=== PATIENT | male | born 1935 | race Caucasian/White ===

== ENCOUNTER 2017-09-04 14:12 | Inpatient (IN) | payer MEDICARE, OTHER ==
[~2017-09-04] VITALS: Ht 175.3 cm; Wt 86.8 kg
[~2017-09-04 14:12] MED LIST: ALBU2.5V7 NEB; ASPI81TA31 PO; Acetaminophen PO; Blood Sugar Diagnostic VI; CLOP75TA15 PO; DEXT50DI8 IV; HEPA50007 IV; INSU100I19 SQ; INSU100V28 SQ; ISOS60TA4 PO; MENT71OI TOP; Methylprednisolone Sod Succ IV; Metoprolol Tartrate PO; Morphine Sulfate IV; Ondansetron Hcl/Pf IV; PANT40TA2 PO; PIPE3.379 IV; RANO500T3 PO; RXVAN XX; SIMV80TA5 PO; TAMS-3 PO
[2017-09-04] MEDS ORDERED: CEFTRIAXONE 1 G in IV DEXTROSE 5% 50 ML IV ONE (14:15)
[2017-09-04] MEDS ORDERED: IV NORMAL SALINE 1000 ML BAG IV ONE (14:15)
--- NOTE | 2017-09-04 14:15 | NUR ---
At bedside assessing patient, and speaking to pt's daughter who remains at bedside.
[2017-09-04] MEDS ORDERED: VALSARTAN 80 MG TABLET PO (14:25)
[2017-09-04] MEDS ORDERED: IRON1TAB PO (14:28)
[2017-09-04] MEDS ORDERED: GABA-534 PO (14:28)
[2017-09-04] MEDS ORDERED: GLIM4TAB3 PO (14:28)
[2017-09-04] MEDS ORDERED: LINA1TAB7 PO (14:28)
[2017-09-04] MEDS ORDERED: VERA240T97 PO (14:28)
[2017-09-04] MEDS ORDERED: CARV25TA2 PO (14:28)
[2017-09-04] MEDS ORDERED: ACETAMINOPHEN 650 MG/20.3 ML LIQUID UDC PO ONE (14:30)
[2017-09-04] MEDS ORDERED: OSELTAMIVIR PHOSPHATE 75 MG CAPSULE PO ONE (14:30)
[2017-09-04 14:40] LABS: ABG BASE EXCESS -1.8 mmol/L; ABG PCO2 33.7 mmHg (35.0-45.0); ABG PH 7.432 (7.350-7.450); ABG PO2 74.8 mmHg (75.0-100.0); ABG SITE RIGHT BRACHIAL; ABG TOTAL HEMOGLOBIN 10.5 G/dL (13.5-18.0); COHb 1.3 % (0.5-1.5); MetHb 0.2 % (0.0-1.5); VENT MODE Nasal Cannula
[2017-09-04] MEDS ORDERED: ACETAMINOPHEN 325 MG TABLET ONE (14:46)
[2017-09-04 14:47] LABS: BASOPHILS % (AUTO) 0.2 % (0.0-2.0); EOSINOPHILS % (AUTO) 0.2 % (0.0-7.0); HEMATOCRIT 33.8 % (36.7-47.1); LYMPHOCYTES # (AUTO) 0.5 K/uL (20.0-40.0); LYMPHOCYTES % (AUTO) 9.1 % (20.5-51.5); MEAN CORPUSCULAR HEMOGLOBIN 29.5 uug (23.8-33.4); MEAN CORPUSCULAR HGB CONC 33 g/dL (32.5-36.3); MEAN CORPUSCULAR VOLUME 90.5 fL (73.0-96.2); MONOCYTES # (AUTO) 0.5 K/uL (2.0-10.0); MONOCYTES % (AUTO) 7.9 % (0.0-11.0); NEUTROPHILS % (AUTO) 82.6 % (38.5-71.5); PLATELET COUNT (AUTO) 122 K/uL (152-348); RED BLOOD CELL COUNT(AUTO) 3.73 MIL/uL (4.06-5.63)
[2017-09-04] MEDS ORDERED: CEFTRIAXONE 1 G VIAL ONE (14:47)
[2017-09-04] MEDS ORDERED: OSELTAMIVIR PHOSPHATE 75 MG CAPSULE ONE (14:47)
[2017-09-04 14:55] LABS: *BILIRUBIN,URIN NEGATIVE (NEGATIVE); *BLOOD, URINE 2+ (NEGATIVE); *CLARITY,URINE CLEAR (CLEAR); *COLOR,URINE YELLOW (YELLOW); *KETONES,URINE NEGATIVE (NEGATIVE); *PROTEIN,URINE 1+ (NEGATIVE); *UROBILINOGEN,URINE 0.2 E.U./dl (NORMAL); LEUKOCYTE ESTERASE ,URINE NEGATIVE (NEGATIVE); NITRITE, URINE NEGATIVE (NEGATIVE); PH,URINE 6.5 (5.0-8.0)
--- NOTE | 2017-09-04 14:57 | NUR ---
HR of 112, RR of 28, sbp 212/98, 96% room air.
[2017-09-04 14:59] LABS: UGLUCOSE 2+ (NEGATIVE)
[2017-09-04 15:01] LABS: CARBON DIOXIDE 24 mmol/L (21-32); CHLORIDE 99 mmol/L (98-107); CREATININE 1.6 mg/dL (0.6-1.3); POTASSIUM 4.2 mmol/L (3.5-5.1); UREA NITROGEN, BLOOD 24 mg/dL (7-18)
[2017-09-04 15:03] LABS: GLUCOSE 441 mg/dL (74-106)
[2017-09-04 15:13] LABS: ALANINE AMINOTRANSFERASE 23 U/L (16-63); ALKALINE PHOSPHATASE 69 U/L (50-136); ASPARTATE AMINOTRANSFERASE 16 U/L (15-37); BILIRUBIN,DIRECT 0.1 mg/dL (0.0-0.2); BILIRUBIN,TOTAL 0.6 mg/dL (0.2-1.0); TOTAL PROTEIN, SERUM 7.5 g/dL (6.4-8.2)
[2017-09-04 15:29] LABS: BACTERIA,URINE NONE SEEN /HPF (NONE SEEN); SQUAMOUS EPITHELIAL CELL,UR NONE SEEN /HPF (NONE SEEN); WBC,URINE 0-3 /HPF (0-3)
--- NOTE | 2017-09-04 16:15 | NUR ---
SBP 180/83, RA Influeza swabb sent as order. Patient left unit via gurney AAOX3. sbp as noted. daughter at bedside.
[2017-09-04] MEDS ORDERED: SILD20TA2 PO (16:52)
[2017-09-04 16:56] VITALS: BP 187/82
[2017-09-04] MEDS ORDERED: hydrALAZINE HCL 20 MG/1 ML VIAL IV ONE (17:30)
--- NOTE | 2017-09-04 18:00 | NUR ---
Pt admitted to [facility]. Tele SNR @ 90's. Given Hydralazine as ordered per Reema CARTAGENA b/p rechecked still @ SBP of 180's. O2 sat 97% on 2 liters. Noted Bruising on right butt cheek - Daughter stated that pt fell at home- ordered x ray of pelvis. Right elbow abrasion noted -keep skin dry and intact. Pt slovak speaking but very ALERT andr ORiented x 3 . Noted Wheezing on left lower lobe - instructed pt not to drink too much water- pt agreeable with plan. Awaiting for medications to be reconciled. Will continue to monitor patient. Instructed pt on how to use call light. Bed Alarm on. Fall precaution implemented. Call light is within reach.
[2017-09-04 19:03] VITALS: BP 187/87
--- NOTE | 2017-09-04 19:15 | NUR ---
Pt is awake on bed. family member on bed side. IV site intact and patent. Pt is on nasal cannula 2l. call light within reach. bed alarm on. safety and comfort provided.will continue to monitor.
--- NOTE | 2017-09-04 20:30 | NUR ---
PATIENT BP 187/86, C/O BACK,ABDOMINAL PAIN,SARAH LOPEZ CHERYL APPLIED MATHEMATICIAN, WAS NOTIFIED, ORDER RECEIVED.
[2017-09-04] MEDS ORDERED: ONDANSETRON 4 MG/2 ML VIAL IV PRN (20:45)
[2017-09-04] MEDS ORDERED: HYDROCODONE/APAP 5-325MG TABLET PO PRN (20:45)
[2017-09-04] MEDS ORDERED: ZOLPIDEM 5 MG TABLET PO PRN (20:45)
[2017-09-04] MEDS ORDERED: DEXTROSE 50% 50 ML DISP.SYRIN IV PRN (20:45)
[2017-09-04] MEDS ORDERED: MAGNESIUM HYDROXIDE 30 ML LIQUID UDC PO PRN (20:45)
[2017-09-04] MEDS ORDERED: ACETAMINOPHEN 325 MG TABLET PO PRN (20:45)
[2017-09-04] MEDS ORDERED: MORPHINE SULFATE 2 MG/1 ML DISP.SYRIN IV PRN (20:45)
[2017-09-04] MEDS ORDERED: LEVOFLOXACIN 750MG/D5W 750 MG in PREMIXED 1 EACH IV SCH (20:45)
[2017-09-04] MEDS ORDERED: AMLODIPINE 5 MG TABLET ONE (21:14)
[2017-09-04] MEDS: AMLODIPINE 5 MG TABLET PO SCH (21:22)
[2017-09-04] MEDS: BLOOD SUGAR DIAGNOSTIC 1 EACH STRIP VI SCH (21:26)
[2017-09-04] MEDS: INSULIN REGULAR, HUMAN 300 UNITS/3 ML VIAL SQ PRN (21:28)
--- NOTE | 2017-09-04 22:00 | NUR ---
PATIENT C/O NOT FEELING GOOD,BP 224/119,ST WITH BBB,RATE 104 BPM,TROPONIN 0.850.CHARLY PARDO. RADIO DISPATCHER WAS NOTIFIED,ORDERS RECEIVED TRANSFER TO CCU BED 5, FOR HIGHER LEVEL OF CARE.REPORT GIVEN TO SHAY Stark
[2017-09-04] MEDS ORDERED: NICARDIPINE IN NS 20 MG/200 ML PIGGYBACK IV ONE (22:30)
[2017-09-04] MEDS ORDERED: METOPROLOL TARTRATE 5 MG/5 ML VIAL IVP PRN (22:30)
[2017-09-04] MEDS ORDERED: HEPARIN/D5W DRIP 500 ML IV PRN (22:30)
[2017-09-04] MEDS ORDERED: NICARDIPINE IN DEXTROSE,ISO-OS 200 ML IV ONE (23:00)
[2017-09-04 23:15] VITALS: BP 206/110
[2017-09-04 23:30] VITALS: BP 201/102
[2017-09-04] MEDS ORDERED: LEVOFLOXACIN 750MG/D5W 150 ML IV ONE (23:41)
[2017-09-04] MEDS ORDERED: METOCLOPRAMIDE HCL 10 MG/2 ML VIAL ONE ×2 (23:42→23:43)
[2017-09-04] MEDS ORDERED: NICARDIPINE IN NS 200 ML IV ONE (23:44)
[2017-09-04 23:45] VITALS: BP 194/100
--- NOTE | 2017-09-04 23:45 | NUR ---
PATIENT TRANSFERRED TO CCU: WITH ELEVATED TROPONIN, SBP 206, ORDERED CARDENE & HEPARIN. STARTED CARDENE AT 5 MG / HR.
--- NOTE | 2017-09-04 23:59 | NUR ---
INCREASED CARDENE TITRATION 2.5 MG Q5MIN, TO MAXIMUM DOSE 15 MG / HR (150 ML / HR). NOT SHOWING ON IV SPREADSHEET.
[2017-09-05] VITALS (69 sets, daily range): BP systolic 104–180; BP diastolic 42–130
[2017-09-05] MEDS ORDERED: IV NORMAL SALINE 250 ML IV ONE (00:37)
[2017-09-05] MEDS ORDERED: IOHEXOL 350 100 ML INFUS..BTL ONE (00:37)
[2017-09-05] MEDS: ACETYLCYSTEINE 20% 800 MG/4 ML VIAL PO SCH ×3 (00:40→20:42)
[2017-09-05] MEDS ORDERED: IV NORMAL SALINE 500 ML IV ONE ×2 (01:00→10:25)
[2017-09-05] MEDS: IV NS 1000 ML 1,000 ML IV PRN ×2 (01:00→15:21)
--- NOTE | 2017-09-05 01:00 | NUR ---
CARDENE TITRATION @ 2.5 MG / HR (12.5 ML / HR).
[2017-09-05] MEDS ORDERED: NICARDIPINE IN NS 200 ML IV ONE (01:03)
--- NOTE | 2017-09-05 01:30 | NUR ---
REPORTED CT SCAN RESULTS TO DR STARK. MADE AWARE HEPARIN WAS D/C'D. MADE AWARE CARDENE TITRATION INFUSING.
[2017-09-05] MEDS ORDERED: ACETYLCYSTEINE 20% 800 MG/4 ML VIAL ONE (01:47)
--- NOTE | 2017-09-05 02:00 | NUR ---
CARDENE TITRATION @ 2.5 MG / HR (12.5 ML / HR).
--- NOTE | 2017-09-05 03:00 | NUR ---
CARDENE TITRATION @ 2.5 MG / HR (12.5 ML / HR).
--- NOTE | 2017-09-05 04:00 | NUR ---
CARDENE TITRATION @ 2.5 MG / HR (12.5 ML / HR).
--- NOTE | 2017-09-05 05:00 | NUR ---
CARDENE TITRATION @ 2.5 MG / HR (12.5 ML / HR).
[2017-09-05 05:28] LABS: CARBON DIOXIDE 27 mmol/L (21-32); CHLORIDE 103 mmol/L (98-107); CREATININE 1.1 mg/dL (0.6-1.3); GLUCOSE 253 mg/dL (74-106); MAGNESIUM 1.3 mg/dL (1.8-2.4); PHOSPHOROUS 3.2 mg/dL (2.5-4.9); POTASSIUM 3.8 mmol/L (3.5-5.1); UREA NITROGEN, BLOOD 18 mg/dL (7-18)
[2017-09-05 05:34] LABS: BASOPHILS % (AUTO) 0.2 % (0.0-2.0); EOSINOPHILS % (AUTO) 0.4 % (0.0-7.0); HEMATOCRIT 29.9 % (36.7-47.1); HEMOGLOBIN 10.1 g/dL (12.5-16.3); LYMPHOCYTES # (AUTO) 0.6 K/uL (20.0-40.0); LYMPHOCYTES % (AUTO) 10.9 % (20.5-51.5); MEAN CORPUSCULAR HEMOGLOBIN 30.3 uug (23.8-33.4); MEAN CORPUSCULAR HGB CONC 34 g/dL (32.5-36.3); MEAN CORPUSCULAR VOLUME 89.7 fL (73.0-96.2); MONOCYTES # (AUTO) 0.5 K/uL (2.0-10.0); MONOCYTES % (AUTO) 8.2 % (0.0-11.0); NEUTROPHILS # (AUTO) 4.7 K/uL (1.8-8.9); NEUTROPHILS % (AUTO) 80.3 % (38.5-71.5); PLATELET COUNT (AUTO) 110 K/uL (152-348); RED BLOOD CELL COUNT(AUTO) 3.33 MIL/uL (4.06-5.63); WHITE BLOOD COUNT (AUTO) 5.8 K/uL (3.6-10.2)
--- NOTE | 2017-09-05 06:00 | NUR ---
CARDENE TITRATION @ 2.5 MG / HR (12.5 ML / HR).
[2017-09-05] MEDS ORDERED: NICARDIPINE IN NS 20 MG/200 ML PIGGYBACK IV PRN (07:30)
[2017-09-05] MEDS ORDERED: MORPHINE SULFATE 4 MG/1 ML DISP.SYRIN IV PRN ×2 (07:45→10:45)
[2017-09-05] MEDS: INSULIN REGULAR, HUMAN 300 UNIT/3 ML VIAL SQ PRN ×3 (07:59→20:57)
[2017-09-05] MEDS: BLOOD SUGAR DIAGNOSTIC 1 EACH STRIP VI SCH ×4 (08:17→20:54)
[2017-09-05] MEDS: HEPARIN/D5W DRIP 500 ML IV PRN (08:20)
--- NOTE | 2017-09-05 08:20 | NUR ---
heparin drip started at 1000units per hr post bolus of 5400 units IVp Addendum: 09/05/17 at 1944 by LIT FLYNN RN Amended: Links added. Addendum: 09/05/17 at 1945 by LIT FLYNN RN Amended: Links added.
[2017-09-05] MEDS: HEPARIN SODIUM,PORCINE 5,000 UNITS/ML VIAL IV ONE ×2 (08:24→08:28)
[2017-09-05] MEDS ORDERED: CLOPIDOGREL 75 MG TABLET PO SCH (09:00)
[2017-09-05] MEDS: AMLODIPINE 5 MG TABLET PO SCH ×2 (09:22→20:58)
[2017-09-05] MEDS ORDERED: NICARDIPINE IN NS 20 MG/200 ML PIGGYBACK IV ONE (10:30)
[2017-09-05] MEDS ORDERED: MORPHINE SULFATE 2 MG/1 ML DISP.SYRIN IV PRN (10:30)
[2017-09-05] MEDS ORDERED: LEVOFLOXACIN 750MG/D5W 750 MG in PREMIXED 1 EACH IV SCH (10:30)
[2017-09-05] MEDS ORDERED: HEPARIN SODIUM,PORCINE 5,000 UNITS/ML VIAL IV PRN (11:45)
[2017-09-05] MEDS ORDERED: FUROSEMIDE 40 MG/4 ML VIAL IV ONE (12:00)
[2017-09-05] MEDS ORDERED: NICARDIPINE IN NS 200 ML IV PRN (13:00)
--- NOTE | 2017-09-05 13:40 | NUR ---
isaiah gibbs started at 5mg/hr via right forearm #20 Addendum: 09/05/17 at 1940 by LIT FLYNN RN Amended: Young added. Addendum: 09/05/17 at 1943 by LIT FLYNN RN Amended: Links added. Addendum: 09/05/17 at 1945 by LIT FLYNN RN Amended: Links added.
[2017-09-05] MEDS: NICARDIPINE IN NS 200 ML IV PRN ×2 (13:48→18:22)
[2017-09-05] MEDS: ALBUTEROL SULFATE 2.5 MG/ 0.5 ML NEBU NEB PRN (14:04)
[2017-09-05] MEDS: MAGNESIUM SULFATE/D5W 100 ML IV SCH ×4 (14:16→17:13)
--- NOTE | 2017-09-05 15:25 | NUR ---
1400 ptt was 65 sec. no drip rate change. next ptt draw in am Addendum: 09/05/17 at 1945 by LIT FLYNN RN Amended: Links added.
[2017-09-05 15:47] LABS: CHOLESTEROL 80 mg/dL (<200); TRIGLYCERIDES 98 MG/DL (30-150)
[2017-09-05 15:48] LABS: HDL CHOLESTEROL 22 mg/dL (40-60)
--- NOTE | 2017-09-05 17:15 | NUR ---
report received from Sher, patient 70 yr old male was admitted on 09/04/16 for sepsis, acs and sob. patient is awake alert and oriented, welsh speaking only. ekg is sinus bp is high, is diabetic. iv fluid NS 75ml/hr. IV site #20 intact via right forearm Addendum: 09/05/17 at 1928 by LIT FLYNN RN Amended: Links added.
--- NOTE | 2017-09-05 19:15 | NUR ---
report given to Sunil Addendum: 09/05/17 at 1948 by LIT FLYNN RN Amended: Links added.
--- NOTE | 2017-09-05 19:48 | NUR ---
report given to Sunil
--- NOTE | 2017-09-05 20:00 | NUR ---
Alert, oriented. Just seen by Dr. Greenfield. Cardene drip infusing well for BP management. Will start PO antihypertensives and wean off drip. Also on Heparin drip for ACS/Elevated troponins. No evidence of bleeding. Pt made aware of care plans. Denies pain/discomfort. Instructed to report all pain/discomfort episodes to RN. Nursing comfort measures observed. On droplet precautions. Occasional bouts of productive cough. Please see CCU flowsheet for full assessment and clinical data.
[2017-09-05] MEDS: CARVEDILOL 25 MG TABLET PO SCH (20:41)
[2017-09-05] MEDS: ATORVASTATIN 40 MG TABLET PO SCH (20:42)
[2017-09-05] MEDS: Z GUARD REMEDY PASTE 57 GM TUBE TOP PRN (20:45)
[2017-09-05] MEDS ORDERED: OSELTAMIVIR PHOSPHATE 75 MG CAPSULE PO SCH (21:00)
[2017-09-05] MEDS: OSELTAMIVIR PHOSPHATE 75 MG CAPSULE PO SCH (21:13)
[2017-09-05] MEDS: SILDENAFIL 20 MG TABLET PO SCH (21:14)
[2017-09-05] MEDS: LEVOFLOXACIN 750MG/D5W 750 MG in PREMIXED 1 EACH IV SCH (22:26)
--- NOTE | 2017-09-05 23:00 | NUR ---
Cardene drip weaned off. SBP maintaining below 160. Pt monitored closely.
[2017-09-06] VITALS (29 sets, daily range): BP systolic 112–173; BP diastolic 56–92
[2017-09-06] MEDS: IV NS 1000 ML 1,000 ML IV PRN ×2 (04:51→19:00)
[2017-09-06 05:19] LABS: CARBON DIOXIDE 26 mmol/L (21-32); CHLORIDE 104 mmol/L (98-107); CREATININE 1.1 mg/dL (0.6-1.3); GLUCOSE 189 mg/dL (74-106); MAGNESIUM 1.9 mg/dL (1.8-2.4); POTASSIUM 3.2 mmol/L (3.5-5.1); UREA NITROGEN, BLOOD 16 mg/dL (7-18)
[2017-09-06] MEDS: SILDENAFIL 20 MG TABLET PO SCH ×3 (05:25→21:34)
--- NOTE | 2017-09-06 06:00 | NUR ---
Stable VS even with Cardene off. Barely slept tonight, refused any medication. Denies pain/discomfort. Bouts of productive cough. No untoward effects from Heparin drip. Please see CCU flowsheet for trends and clinical data.
--- NOTE | 2017-09-06 06:20 | NUR ---
Assisted to bedside commode for bowel elimination needs. Appears strong, steady on feet. Continent of soft BM, kept clean and dry. AM care rendered. Pt appreciative of care.
--- NOTE | 2017-09-06 06:45 | NUR ---
Noted urine starting to look with cranberry color, no clots noted. Will observe closely. Stable PTT, no change in dose.
[2017-09-06] MEDS: ALBUTEROL SULFATE 2.5 MG/ 0.5 ML NEBU NEB PRN ×2 (07:58→17:29)
[2017-09-06] MEDS: IPRATROPIUM BROMIDE 0.5 MG/2.5 ML NEBU NEB PRN ×2 (07:58→17:29)
[2017-09-06] MEDS: BLOOD SUGAR DIAGNOSTIC 1 EACH STRIP VI SCH ×4 (08:26→21:00)
[2017-09-06] MEDS: CARVEDILOL 25 MG TABLET PO SCH ×2 (08:28→17:53)
[2017-09-06] MEDS: ACETYLCYSTEINE 20% 800 MG/4 ML VIAL PO SCH (09:02)
[2017-09-06] MEDS: OSELTAMIVIR PHOSPHATE 75 MG CAPSULE PO SCH ×2 (09:02→22:01)
[2017-09-06] MEDS: CLOPIDOGREL 75 MG TABLET PO SCH (09:03)
[2017-09-06] MEDS: AMLODIPINE 5 MG TABLET PO SCH ×2 (09:03→21:35)
[2017-09-06] MEDS: FUROSEMIDE 40 MG/4 ML VIAL IV SCH (09:03)
[2017-09-06] MEDS: ASPIRIN EC 81 MG TABLET.DR PO SCH (09:03)
[2017-09-06] MEDS: INSULIN REGULAR, HUMAN 300 UNIT/3 ML VIAL SQ PRN ×2 (09:06→12:00)
[2017-09-06] MEDS: HEPARIN/D5W DRIP 500 ML IV PRN (09:55)
[2017-09-06] MEDS ORDERED: POTASSIUM CHLORIDE 20 MEQ TAB.PRT.SR PO ONE (11:30)
--- NOTE | 2017-09-06 19:42 | NUR ---
Pt is laying in bed comfortably. No s/s of respiratory distress noted. Pt is on 3l NC. No pain noted. Pt is draining pink tinged urine, dr Candelaria is aware. IV intact/patent. No bleeding noted. All safety needs are met.
[2017-09-06 21:00] LABS: IRON, SERUM 27 ug/dL (50-175)
[2017-09-06] MEDS: ATORVASTATIN 40 MG TABLET PO SCH (21:34)
[2017-09-06 21:35] LABS: *BILIRUBIN,URIN NEGATIVE (NEGATIVE); *BLOOD, URINE 3+ (NEGATIVE); *CLARITY,URINE CLEAR (CLEAR); *COLOR,URINE YELLOW (YELLOW); *KETONES,URINE NEGATIVE (NEGATIVE); *PROTEIN,URINE 2+ (NEGATIVE); *UROBILINOGEN,URINE 0.2 E.U./dl (NORMAL); LEUKOCYTE ESTERASE ,URINE NEGATIVE (NEGATIVE); NITRITE, URINE NEGATIVE (NEGATIVE)
[2017-09-06 21:42] LABS: UGLUCOSE 1+ (NEGATIVE)
[2017-09-06 21:51] LABS: BACTERIA,URINE FEW /HPF (NONE SEEN); RBC,URINE 80-100 /HPF (0-3); SQUAMOUS EPITHELIAL CELL,UR FEW /HPF (NONE SEEN)
[2017-09-06] MEDS: INSULIN REGULAR, HUMAN 300 UNITS/3 ML VIAL SQ PRN (22:23)
[2017-09-06] MEDS: LEVOFLOXACIN 750MG/D5W 750 MG in PREMIXED 1 EACH IV SCH (22:38)
[2017-09-06] MEDS: hydrALAZINE HCL 20 MG/1 ML VIAL IV PRN (22:48)
[2017-09-07] VITALS (26 sets, daily range): BP systolic 126–177; BP diastolic 45–81
--- NOTE | 2017-09-07 01:14 | NUR ---
shift note: PT AAO X 4, FOX, STRONG ON HIS FEET. NEEDS HELP WITH GETTING TO BSC. MONITOR SHOWS NSR WITH SOME JUNCTIONAL BEATS AND V-PACED RHYTHM PACED ABOUT 40% WITH 90% CAPTURE. VSS, AFEBRILE. HYDRALAZINE MG IVP GIVEN FOR SBP OF 173, SEE eMAR. EFFECTIVE POST MEDICATION BP 153/82. PT GETS SOB WHEN GETTING OOB/BSC. O2 INCREASED TO 5L DURING ACTIVITY. PT IS ANXIOUS. DENIES ANY PAIN. AMBIEN 5 MG PO GIVEN FOR SLEEP. NOT IN ANY RESPIRATORY DISTRESS. HAD TWO VERY SOFT UNFORMED STOOLS SINCE 1899. DELGADO IS DRAINING PINK TINGED URINE. PER DAY SHIFT FR. TERESA IS AWARE OF HEMATURIA. PT WAS ON HEPARIN DRIP WHICH IS NOW DC'D. CONTINUE TO MONITOR HEMATURIA AND OTHER S/S OF ANY DISTRESS.
--- NOTE | 2017-09-07 05:09 | NUR ---
PT SLEPT WELL AFTER AMBIEN 5 MG PO, BUT WOKE UP CONFUSED. PULLED OFF HIS LEADS BP CUFF PULSE OX. PT WAS EASILY ORIENTED TO PPT. HE IS COOPERATIVE. HE REFUSED BED BATH AND AT NIGHT SCDs. HE REFUSED SCDs AGAIN. PT TEACHING DONE AGAIN ABOUT SCDs. HAVING UNEVENTFUL NIGHT. NO ACUTE DISTRESS. CONTINUE TO MONITOR.
[2017-09-07 05:34] LABS: BASOPHILS % (AUTO) 0.3 % (0.0-2.0); EOSINOPHILS # (AUTO) 0.1 K/uL (0.0-0.7); EOSINOPHILS % (AUTO) 2.6 % (0.0-7.0); HEMATOCRIT 29.8 % (36.7-47.1); LYMPHOCYTES # (AUTO) 0.7 K/uL (20.0-40.0); LYMPHOCYTES % (AUTO) 16.4 % (20.5-51.5); MEAN CORPUSCULAR HEMOGLOBIN 30.2 uug (23.8-33.4); MEAN CORPUSCULAR HGB CONC 34 g/dL (32.5-36.3); MEAN CORPUSCULAR VOLUME 90.1 fL (73.0-96.2); MONOCYTES # (AUTO) 0.4 K/uL (2.0-10.0); MONOCYTES % (AUTO) 9.6 % (0.0-11.0); NEUTROPHILS # (AUTO) 3.1 K/uL (1.8-8.9); NEUTROPHILS % (AUTO) 71.1 % (38.5-71.5); PLATELET COUNT (AUTO) 117 K/uL (152-348); RED BLOOD CELL COUNT(AUTO) 3.31 MIL/uL (4.06-5.63); WHITE BLOOD COUNT (AUTO) 4.4 K/uL (3.6-10.2)
[2017-09-07] MEDS: SILDENAFIL 20 MG TABLET PO SCH ×3 (05:40→21:08)
[2017-09-07 05:55] LABS: ALANINE AMINOTRANSFERASE 25 U/L (16-63); ALKALINE PHOSPHATASE 52 U/L (50-136); ASPARTATE AMINOTRANSFERASE 27 U/L (15-37); BILIRUBIN,TOTAL 0.7 mg/dL (0.2-1.0); CARBON DIOXIDE 24 mmol/L (21-32); CHLORIDE 105 mmol/L (98-107); CREATININE 0.9 mg/dL (0.6-1.3); GLUCOSE 166 mg/dL (74-106); PHOSPHOROUS 3.1 mg/dL (2.5-4.9); UREA NITROGEN, BLOOD 14 mg/dL (7-18)
[2017-09-07 06:00] LABS: THYROID STIMULATING HORMONE 0.269 mIU/mL (0.358-3.740)
[2017-09-07] MEDS: hydrALAZINE HCL 20 MG/1 ML VIAL IV PRN ×2 (06:22→23:22)
[2017-09-07 06:38] LABS: MAGNESIUM 1.1 mg/dL (1.8-2.4)
--- NOTE | 2017-09-07 07:20 | NUR ---
NOTIFIED DR MOORE REGARDING ABNORMAL MAG AND POTASSIUM. ORDERED COVERAGE OF 3GMS MAGNESIUM AND KDUR.
--- NOTE | 2017-09-07 07:30 | NUR ---
RECIEVED LYING IN BED. AWKE, ALERT AND ORIENTEDX3. MOVES ALL EXTREMETIES BUT GENERALLY WEAK AT THIS TIME. AFEBRILE. NO C/O CHEST PAIN. IVF INFUSING WELL ON THE RIGHT FA.
[2017-09-07] MEDS ORDERED: MAGNESIUM SULFATE 3 GM in IV DEXTROSE 5% 50 ML IV ONE (07:45)
--- NOTE | 2017-09-07 08:00 | NUR ---
FOLEYCATHETER IS DRAINING PINKISH RED URINE OUTPUT LARGE AMOUNT. PT ATE GOOD BREAKFAST.
[2017-09-07] MEDS: ASPIRIN EC 81 MG TABLET.DR PO SCH (08:58)
[2017-09-07] MEDS: CARVEDILOL 25 MG TABLET PO SCH ×2 (08:59→17:25)
[2017-09-07] MEDS ORDERED: ENOXAPARIN SODIUM 30 MG/0.3 ML DISP.SYRIN SUBCUT SCH (09:00)
[2017-09-07] MEDS ORDERED: POTASSIUM CHLORIDE 20 MEQ TAB.PRT.SR PO ONE ×2 (09:00→12:00)
[2017-09-07] MEDS: AMLODIPINE 5 MG TABLET PO SCH ×2 (09:00→20:59)
[2017-09-07] MEDS: OSELTAMIVIR PHOSPHATE 75 MG CAPSULE PO SCH ×2 (09:00→20:59)
[2017-09-07] MEDS: FUROSEMIDE 40 MG/4 ML VIAL IV SCH (09:01)
[2017-09-07] MEDS: MAGNESIUM SULFATE/D5W 100 ML IV SCH ×3 (09:10→12:10)
[2017-09-07] MEDS: CLOPIDOGREL 75 MG TABLET PO SCH (09:11)
[2017-09-07] MEDS: ENOXAPARIN SODIUM 40 MG/0.4 ML DISP.SYRIN SQ SCH (09:14)
[2017-09-07] MEDS: INSULIN REGULAR, HUMAN 300 UNIT/3 ML VIAL SQ PRN ×3 (09:16→17:27)
[2017-09-07] MEDS: BLOOD SUGAR DIAGNOSTIC 1 EACH STRIP VI SCH ×4 (09:18→21:06)
[2017-09-07] MEDS ORDERED: PANTOPRAZOLE SODIUM 40 MG TABLET.DR PO ONE (10:18)
[2017-09-07] MEDS: IV NS 1000 ML 1,000 ML IV PRN (11:10)
--- NOTE | 2017-09-07 14:00 | NUR ---
SLEPPING ON AND OFF. SBP IS MAINTAINED IN THE 150 SYSTOLIC.
--- NOTE | 2017-09-07 18:30 | NUR ---
PM CARE RENDERED. IVF DISCONTINUED ORDERED.
--- NOTE | 2017-09-07 19:20 | NUR ---
Seen and evaluated by Dr. Flores. Made aware about presence of hematuria. Pt for closer observation. Dozing at intervals. Appears tired but states had a good day. Resp.easy and regular on O2 nasal cannula. Still with bouts of cough, productive at times.
[2017-09-07] MEDS: LOSARTAN POTASSIUM 25 MG TABLET PO SCH (20:58)
[2017-09-07] MEDS: ATORVASTATIN 40 MG TABLET PO SCH (20:58)
[2017-09-07] MEDS: INSULIN REGULAR, HUMAN 300 UNITS/3 ML VIAL SQ PRN (21:08)
[2017-09-07] MEDS: LEVOFLOXACIN 750MG/D5W 750 MG in PREMIXED 1 EACH IV SCH (23:12)
--- NOTE | 2017-09-07 23:30 | NUR ---
IV Apresoline given for SBP above 160. Denies pain/discomfort. Nursing comfort measures observed at all times. Droplet isolation maintained. Encouraged to rest/sleep.
[2017-09-08] VITALS (16 sets, daily range): BP systolic 121–161; BP diastolic 47–75
[2017-09-08] MEDS ORDERED: NORMAL SALINE FLUSH 10 ML DISP.SYRIN IV PRN (01:00)
--- NOTE | 2017-09-08 04:00 | NUR ---
Sleeping on and off. Has coughing bouts but refusing breathing Tx. Also refusing AM care. Prefers to sleep.
[2017-09-08 05:12] LABS: BASOPHILS % (AUTO) 0.3 % (0.0-2.0); EOSINOPHILS # (AUTO) 0.1 K/uL (0.0-0.7); EOSINOPHILS % (AUTO) 1.7 % (0.0-7.0); HEMATOCRIT 28.6 % (36.7-47.1); HEMOGLOBIN 9.8 g/dL (12.5-16.3); LYMPHOCYTES # (AUTO) 0.9 K/uL (20.0-40.0); LYMPHOCYTES % (AUTO) 19.8 % (20.5-51.5); MEAN CORPUSCULAR HEMOGLOBIN 30.4 uug (23.8-33.4); MEAN CORPUSCULAR HGB CONC 34 g/dL (32.5-36.3); MONOCYTES # (AUTO) 0.4 K/uL (2.0-10.0); MONOCYTES % (AUTO) 8.8 % (0.0-11.0); NEUTROPHILS # (AUTO) 3.1 K/uL (1.8-8.9); NEUTROPHILS % (AUTO) 69.4 % (38.5-71.5); PLATELET COUNT (AUTO) 117 K/uL (152-348); RED BLOOD CELL COUNT(AUTO) 3.21 MIL/uL (4.06-5.63); WHITE BLOOD COUNT (AUTO) 4.4 K/uL (3.6-10.2)
[2017-09-08 05:16] LABS: CARBON DIOXIDE 26 mmol/L (21-32); CHLORIDE 104 mmol/L (98-107); GLUCOSE 166 mg/dL (74-106); MAGNESIUM 1.6 mg/dL (1.8-2.4); POTASSIUM 3.3 mmol/L (3.5-5.1); UREA NITROGEN, BLOOD 12 mg/dL (7-18)
[2017-09-08] MEDS: SILDENAFIL 20 MG TABLET PO SCH ×3 (05:35→21:27)
[2017-09-08] MEDS: PANTOPRAZOLE SODIUM 40 MG TABLET.DR PO SCH (06:09)
--- NOTE | 2017-09-08 07:30 | NUR ---
RECIEVED PT LYING IN BED SOUND ASLEEP. DENIEAS ANY DISCOMFORTS. NO C/O CHEST PAINS..O2NC AT 3L. PTCOUGHING ON AND OFF BUT NOT MUCH OF PHLEGM PROODUCTION.
[2017-09-08] MEDS: BLOOD SUGAR DIAGNOSTIC 1 EACH STRIP VI SCH ×4 (08:04→20:42)
[2017-09-08] MEDS: INSULIN REGULAR, HUMAN 300 UNIT/3 ML VIAL SQ PRN ×3 (08:06→17:23)
--- NOTE | 2017-09-08 08:30 | NUR ---
ATE SUFFICIENT AMOUNT FOR BREAKFAST. ASSISTED PT UP ON THE COMMODE AND HAS A HUGE SOFT BROWN STOOL. PT FEELS RELIEVED. NO APPARENT RESPIRATORY DISTRESS NOTED.
[2017-09-08] MEDS: CARVEDILOL 25 MG TABLET PO SCH ×2 (09:23→19:39)
[2017-09-08] MEDS: FUROSEMIDE 40 MG/4 ML VIAL IV SCH (09:23)
[2017-09-08] MEDS: CLOPIDOGREL 75 MG TABLET PO SCH (09:23)
[2017-09-08] MEDS: AMLODIPINE 5 MG TABLET PO SCH ×2 (09:23→20:39)
[2017-09-08] MEDS: ASPIRIN EC 81 MG TABLET.DR PO SCH (09:24)
[2017-09-08] MEDS: OSELTAMIVIR PHOSPHATE 75 MG CAPSULE PO SCH ×3 (09:24→20:39)
[2017-09-08] MEDS: ENOXAPARIN SODIUM 40 MG/0.4 ML DISP.SYRIN SQ SCH (09:25)
[2017-09-08] MEDS: LOSARTAN POTASSIUM 25 MG TABLET PO SCH ×2 (09:34→20:41)
--- NOTE | 2017-09-08 11:30 | NUR ---
PT REFUSED TO AMBULATE OR DO ANY EXERCISE WITH PT.
--- NOTE | 2017-09-08 11:30 | NUR ---
SEEN AND EXAMINEED BY DR MOORE.
--- NOTE | 2017-09-08 13:30 | NUR ---
PT HAS AN ORDER TO TRANSFER TO TELEMETRY. DOWNGRADEDTO TELEMETRY BUT STILL INCCU AWAITIING FOR AVAILABLE BED.
[2017-09-08] MEDS ORDERED: POTASSIUM CHLORIDE 20 MEQ TAB.PRT.SR PO ONE (14:00)
--- NOTE | 2017-09-08 14:30 | NUR ---
MAGNESIUM 2GMS IVPB AND POTASSIUM REPLACEMENTS GIVEN TO PT. ABLE TO TURN INDEPENDENTLY.
[2017-09-08] MEDS: MAGNESIUM SULFATE/D5W 100 ML IV SCH ×2 (14:39→15:29)
--- NOTE | 2017-09-08 17:35 | NUR ---
DR MOORE CAME IN AND SPOKE WITH THE DAUGHTER FOR LENGTH.
[2017-09-08] MEDS: ATORVASTATIN 40 MG TABLET PO SCH (20:39)
[2017-09-08] MEDS: TAMSULOSIN HCL 0.4 MG CAP.SR.24H PO SCH (20:40)
[2017-09-08] MEDS: INSULIN REGULAR, HUMAN 300 UNITS/3 ML VIAL SQ PRN (20:44)
[2017-09-08] MEDS: LEVOFLOXACIN 750MG/D5W 750 MG in PREMIXED 1 EACH IV SCH (23:20)
[2017-09-09] VITALS (7 sets, daily range): BP systolic 125–141; BP diastolic 57–69
[2017-09-09 05:15] LABS: CARBON DIOXIDE 27 mmol/L (21-32); CHLORIDE 102 mmol/L (98-107); CREATININE 0.9 mg/dL (0.6-1.3); GLUCOSE 142 mg/dL (74-106); MAGNESIUM 1.7 mg/dL (1.8-2.4); PHOSPHOROUS 3.3 mg/dL (2.5-4.9); POTASSIUM 3.2 mmol/L (3.5-5.1); UREA NITROGEN, BLOOD 12 mg/dL (7-18)
[2017-09-09 05:30] LABS: BASOPHILS % (AUTO) 0.2 % (0.0-2.0); EOSINOPHILS # (AUTO) 0.1 K/uL (0.0-0.7); EOSINOPHILS % (AUTO) 2.3 % (0.0-7.0); HEMATOCRIT 30.1 % (36.7-47.1); HEMOGLOBIN 9.9 g/dL (12.5-16.3); LYMPHOCYTES % (AUTO) 19.9 % (20.5-51.5); MEAN CORPUSCULAR HEMOGLOBIN 29.6 uug (23.8-33.4); MEAN CORPUSCULAR HGB CONC 33 g/dL (32.5-36.3); MEAN CORPUSCULAR VOLUME 89.9 fL (73.0-96.2); MONOCYTES # (AUTO) 0.4 K/uL (2.0-10.0); MONOCYTES % (AUTO) 8.7 % (0.0-11.0); NEUTROPHILS # (AUTO) 3.5 K/uL (1.8-8.9); NEUTROPHILS % (AUTO) 68.9 % (38.5-71.5); PLATELET COUNT (AUTO) 128 K/uL (152-348); RED BLOOD CELL COUNT(AUTO) 3.35 MIL/uL (4.06-5.63); WHITE BLOOD COUNT (AUTO) 5.1 K/uL (3.6-10.2)
[2017-09-09] MEDS: PANTOPRAZOLE SODIUM 40 MG TABLET.DR PO SCH (06:18)
[2017-09-09] MEDS: SILDENAFIL 20 MG TABLET PO SCH ×3 (06:18→21:41)
--- NOTE | 2017-09-09 07:00 | NUR ---
Low-grade fever noted, correct on its own. Temp now WNL. A/Ox4. NSR/V-paced on monitor. Hemodynamically stable. 3L O2 via nasal cannula. Productive cough noted. Accu-checks as ordered, will endorse to day shift nurse. 850 mL output via Paredes cath, hematuria noted and decreasing. 1x bowel movement on bedside commode. Peripheral IVs patent and intact to R wrist and R FA. SBAR given to Jesse Jones RN
[2017-09-09] MEDS: BLOOD SUGAR DIAGNOSTIC 1 EACH STRIP VI SCH ×4 (07:30→22:00)
[2017-09-09] MEDS: ENOXAPARIN SODIUM 40 MG/0.4 ML DISP.SYRIN SQ SCH (08:05)
[2017-09-09] MEDS: FUROSEMIDE 40 MG/4 ML VIAL IV SCH (08:06)
[2017-09-09] MEDS: CLOPIDOGREL 75 MG TABLET PO SCH (08:06)
[2017-09-09] MEDS: CARVEDILOL 25 MG TABLET PO SCH ×2 (08:10→17:12)
[2017-09-09] MEDS: AMLODIPINE 5 MG TABLET PO SCH ×2 (08:11→21:44)
[2017-09-09] MEDS: ASPIRIN EC 81 MG TABLET.DR PO SCH (08:11)
[2017-09-09] MEDS: LOSARTAN POTASSIUM 25 MG TABLET PO SCH ×2 (08:12→21:49)
[2017-09-09] MEDS: OSELTAMIVIR PHOSPHATE 75 MG CAPSULE PO SCH ×2 (08:13→21:40)
[2017-09-09] MEDS: INSULIN REGULAR, HUMAN 300 UNIT/3 ML VIAL SQ PRN ×3 (08:39→16:11)
[2017-09-09] MEDS ORDERED: POTASSIUM CHLORIDE 20 MEQ TAB.PRT.SR PO ONE (15:15)
[2017-09-09] MEDS: MAGNESIUM SULFATE/D5W 100 ML IV SCH ×2 (15:41→17:00)
--- NOTE | 2017-09-09 20:00 | NUR ---
turned and reposition patient ,back area off loaded with pillow .upper bilateral and lower extremities up with pillow . hob . Addendum: 09/10/17 at 0219 by DARYN ZAIDI RN Amended: Links added.
[2017-09-09] MEDS: TAMSULOSIN HCL 0.4 MG CAP.SR.24H PO SCH (21:40)
[2017-09-09] MEDS: ATORVASTATIN 40 MG TABLET PO SCH (21:40)
--- NOTE | 2017-09-09 22:00 | NUR ---
fingerstick done and follow insulin sliding scale . Addendum: 09/10/17 at 0224 by DARYN ZAIDI RN Amended: Links added.
[2017-09-09] MEDS: INSULIN REGULAR, HUMAN 300 UNITS/3 ML VIAL SQ PRN (22:01)
[2017-09-09] MEDS: LEVOFLOXACIN 750MG/D5W 750 MG in PREMIXED 1 EACH IV SCH (22:38)
[2017-09-10] VITALS (9 sets, daily range): BP systolic 130–158; BP diastolic 53–72
[2017-09-10 05:37] LABS: BASOPHILS % (AUTO) 0.2 % (0.0-2.0); EOSINOPHILS # (AUTO) 0.2 K/uL (0.0-0.7); EOSINOPHILS % (AUTO) 2.5 % (0.0-7.0); HEMATOCRIT 29.8 % (36.7-47.1); HEMOGLOBIN 9.9 g/dL (12.5-16.3); LYMPHOCYTES # (AUTO) 1.1 K/uL (20.0-40.0); LYMPHOCYTES % (AUTO) 17.9 % (20.5-51.5); MEAN CORPUSCULAR HGB CONC 33 g/dL (32.5-36.3); MONOCYTES # (AUTO) 0.5 K/uL (2.0-10.0); MONOCYTES % (AUTO) 8.1 % (0.0-11.0); NEUTROPHILS # (AUTO) 4.3 K/uL (1.8-8.9); NEUTROPHILS % (AUTO) 71.3 % (38.5-71.5); PLATELET COUNT (AUTO) 143 K/uL (152-348); RED BLOOD CELL COUNT(AUTO) 3.31 MIL/uL (4.06-5.63); WHITE BLOOD COUNT (AUTO) 6.1 K/uL (3.6-10.2)
[2017-09-10 05:52] LABS: CARBON DIOXIDE 28 mmol/L (21-32); CHLORIDE 102 mmol/L (98-107); GLUCOSE 158 mg/dL (74-106); MAGNESIUM 1.8 mg/dL (1.8-2.4); PHOSPHOROUS 3.2 mg/dL (2.5-4.9); POTASSIUM 3.6 mmol/L (3.5-5.1); UREA NITROGEN, BLOOD 18 mg/dL (7-18)
[2017-09-10] MEDS: SILDENAFIL 20 MG TABLET PO SCH ×3 (06:14→22:00)
[2017-09-10] MEDS: PANTOPRAZOLE SODIUM 40 MG TABLET.DR PO SCH (06:14)
[2017-09-10] MEDS: BLOOD SUGAR DIAGNOSTIC 1 EACH STRIP VI SCH ×4 (07:58→21:16)
[2017-09-10] MEDS: INSULIN REGULAR, HUMAN 300 UNIT/3 ML VIAL SQ PRN ×3 (08:07→18:01)
[2017-09-10] MEDS: CARVEDILOL 25 MG TABLET PO SCH ×2 (08:48→18:31)
[2017-09-10] MEDS: ASPIRIN EC 81 MG TABLET.DR PO SCH (08:49)
[2017-09-10] MEDS: LOSARTAN POTASSIUM 25 MG TABLET PO SCH ×2 (08:49→21:14)
[2017-09-10] MEDS: AMLODIPINE 5 MG TABLET PO SCH ×2 (08:49→21:16)
[2017-09-10] MEDS: OSELTAMIVIR PHOSPHATE 75 MG CAPSULE PO SCH (08:49)
[2017-09-10] MEDS: CLOPIDOGREL 75 MG TABLET PO SCH (08:49)
[2017-09-10] MEDS: FUROSEMIDE 40 MG/4 ML VIAL IV SCH (08:50)
[2017-09-10] MEDS: ENOXAPARIN SODIUM 40 MG/0.4 ML DISP.SYRIN SQ SCH (09:03)
[2017-09-10] MEDS ORDERED: GLIMEPIRIDE 2 MG TABLET PO ONE (11:28)
[2017-09-10] MEDS ORDERED: POTASSIUM CHLORIDE 20 MEQ TAB.PRT.SR PO ONE (11:30)
--- NOTE | 2017-09-10 19:30 | NUR ---
RECEIVED REPORT FROM CCU NURSE, PATIENT TRANSFERRED TO TELE, A OX4, NO SOB, ABLE TO VERBALIZE NEEDS. ON O2 VIA NC A@ 2LPM , F/C DRAINING YELLOW URINE. SINUS RHYTHM ON THE MONITOR. NO ISOLATION PRECAUTIONS . SAFFETY MEASURES OBSERVED. CALL LIGHT IN REACH
[2017-09-10] MEDS: TAMSULOSIN HCL 0.4 MG CAP.SR.24H PO SCH (21:14)
[2017-09-10] MEDS: ATORVASTATIN 40 MG TABLET PO SCH (21:15)
--- NOTE | 2017-09-10 22:00 | NUR ---
SILDENAFIL NOT GIVEN THE MEDICATION NOT AVAILABLE
[2017-09-10] MEDS: LEVOFLOXACIN 750MG/D5W 750 MG in PREMIXED 1 EACH IV SCH (22:11)
[2017-09-11] VITALS: BP 121/51
[2017-09-11 04:00] VITALS: BP 145/61
[2017-09-11] MEDS: SILDENAFIL 20 MG TABLET PO SCH ×2 (06:00→14:35)
[2017-09-11] MEDS: PANTOPRAZOLE SODIUM 40 MG TABLET.DR PO SCH (06:10)
--- NOTE | 2017-09-11 06:20 | NUR ---
SILDENAFIL NOT ADMISTERED THE MEDICATION NOT AVAILABLE
[2017-09-11] MEDS: BLOOD SUGAR DIAGNOSTIC 1 EACH STRIP VI SCH ×2 (06:57→12:12)
[2017-09-11] MEDS ORDERED: GLIMEPIRIDE 2 MG TABLET PO SCH (08:00)
--- NOTE | 2017-09-11 08:00 | NUR ---
AWAKE ALERT COOPERATE WELL NO SOB OR PAIN ON FALL PRECAUTION CALL LIGHT IN REACH AND BED ALARM ON
[2017-09-11] MEDS: CARVEDILOL 25 MG TABLET PO SCH (08:48)
[2017-09-11] MEDS: LOSARTAN POTASSIUM 25 MG TABLET PO SCH (08:48)
[2017-09-11] MEDS: AMLODIPINE 5 MG TABLET PO SCH (08:48)
[2017-09-11] MEDS: FUROSEMIDE 40 MG/4 ML VIAL IV SCH (08:49)
[2017-09-11] MEDS: ENOXAPARIN SODIUM 40 MG/0.4 ML DISP.SYRIN SQ SCH (08:51)
--- NOTE | 2017-09-11 11:00 | NUR ---
DR GRIFFITHS SEEN PATIENT AND ORDER OK TO D/C HOME TODAY PATIENT WAS INFORM
[2017-09-11] MEDS: CLOPIDOGREL 75 MG TABLET PO SCH (11:11)
[2017-09-11] MEDS: Z GUARD REMEDY PASTE 57 GM TUBE TOP PRN (11:12)
[2017-09-11] MEDS: ASPIRIN EC 81 MG TABLET.DR PO SCH (11:12)
[2017-09-11 11:22] VITALS: BP 150/67
[2017-09-11] MEDS: INSULIN REGULAR, HUMAN 300 UNIT/3 ML VIAL SQ PRN (12:11)
--- NOTE | 2017-09-11 13:30 | NUR ---
D/C F/C AT THIS TIME RESTING WELL FAMILY WAS CALL TO INFORM OF D/C HOME TODAY
[2017-09-11] MEDS ORDERED: CLOP75TA15 PO (14:35)
[2017-09-11] MEDS ORDERED: AMLO5TAB2 PO (14:35)
[2017-09-11] MEDS ORDERED: PANT40TA2 PO (14:35)
[2017-09-11] MEDS ORDERED: CARV25TA2 PO (14:35)
[2017-09-11] MEDS ORDERED: FURO-151 PO (14:35)
[2017-09-11] MEDS ORDERED: LOSA25TA3 PO (14:35)
[2017-09-11] MEDS ORDERED: ASPI-618 PO (14:35)
[2017-09-11 15:10] VITALS: BP 134/59
--- NOTE | 2017-09-11 16:00 | NUR ---
D/C HOME WITH HIS BELONGING ACCOMPANIES WITH FAMILY DAUGHTER AND REFUSED TO HAVE PHAMACY DISCUSS ON HOME MEDICINE AND REMIND TO TAKE ALL D/C SUMMARY AND D/C SHEET TO OWN PMD EDUCATION PK GIVE VERBALIZES UNDERSTAND HL WAS D/C PRIOR D/C HOME TODAY
== END 2017-09-11 16:00 | disposition home health service (06) | DRG 871 ==
LOC: ER 14:12 → TELE-TD 15:51 → CCU 23:05 → TELE 09-10 19:35
PROVIDERS: ATTEND Nurse Practitioner Acute Care
DX: A41.9 Sepsis, unspecified organism (principal); J10.00 Influenza due to other identified influenza virus with unspecified type of pneumonia; J96.01 Acute respiratory failure with hypoxia; I21.A1 Myocardial infarction type 2; N17.0 Acute kidney failure with tubular necrosis; I50.33 Acute on chronic diastolic (congestive) heart failure; I27.20 Pulmonary hypertension, unspecified; E83.42 Hypomagnesemia; E11.42 Type 2 diabetes mellitus with diabetic polyneuropathy; D68.32 Hemorrhagic disorder due to extrinsic circulating anticoagulants; Q43.3 Congenital malformations of intestinal fixation; I45.2 Bifascicular block; W18.30XA Fall on same level, unspecified, initial encounter; I11.0 Hypertensive heart disease with heart failure; E11.65 Type 2 diabetes mellitus with hyperglycemia; R65.20 Severe sepsis without septic shock; D64.9 Anemia, unspecified; K56.41 Fecal impaction; Z79.4 Long term (current) use of insulin; I35.0 Nonrheumatic aortic (valve) stenosis; J32.4 Chronic pansinusitis; M19.90 Unspecified osteoarthritis, unspecified site; N40.0 Benign prostatic hyperplasia without lower urinary tract symptoms; E87.6 Hypokalemia; M81.0 Age-related osteoporosis without current pathological fracture; Z79.899 Other long term (current) drug therapy; Z68.28 Body mass index [BMI] 28.0-28.9, adult; E66.9 Obesity, unspecified; I25.10 Atherosclerotic heart disease of native coronary artery without angina pectoris; I25.2 Old myocardial infarction; Z95.1 Presence of aortocoronary bypass graft; Z98.61 Coronary angioplasty status; Z99.81 Dependence on supplemental oxygen; E78.5 Hyperlipidemia, unspecified; R55 Syncope and collapse; Z95.0 Presence of cardiac pacemaker; Y92.511 Restaurant or cafe as the place of occurrence of the external cause; R31.9 Hematuria, unspecified; T45.515A Adverse effect of anticoagulants, initial encounter; Y92.239 Unspecified place in hospital as the place of occurrence of the external cause
CPT/HCPCS: 36415; 36600; 70030-TC; 70450; 71045; 83550; 83605; 83735; 84100; 84443; 85025; 85730; 87040; 87086; 87400; 93005; 93307; 93880; 94640; 94664; 97110; 97116; 97165; 97530; A4663; J0360; J0696; J1644; J1650; J1815; J1940; J1956; J2270; J2765; J3475; J3490; J3590; J7030; J7040; J7050; J7060; Q9967

== ENCOUNTER 2017-10-05 22:22 | Inpatient (IN) | payer MEDICARE, OTHER ==
[~2017-10-05] VITALS: Ht 177.8 cm; Wt 87.1 kg
[~2017-10-05 22:22] MED LIST changes: -ALBU2.5V7 NEB; +AMLO5TAB2 PO; +ASPI-618 PO; -ASPI81TA31 PO; -Acetaminophen PO; -Blood Sugar Diagnostic VI; +CARV25TA2 PO; -DEXT50DI8 IV; +FURO-151 PO; +GABA-534 PO; +GLIM4TAB3 PO; -HEPA50007 IV; -INSU100I19 SQ; -INSU100V28 SQ; +IRON1TAB PO; +LINA1TAB7 PO; +LOSA25TA3 PO; -MENT71OI TOP; -Methylprednisolone Sod Succ IV; -Metoprolol Tartrate PO; -Morphine Sulfate IV; -Ondansetron Hcl/Pf IV; -PIPE3.379 IV; -RANO500T3 PO; -RXVAN XX
--- NOTE | 2017-10-05 22:45 | NUR ---
Seen and evaluated by Dr. Hickman.
[2017-10-05] MEDS ORDERED: FURO40TA5 PO (23:22)
[2017-10-05] MEDS ORDERED: VERA240C2 PO (23:22)
[2017-10-05] MEDS ORDERED: POTA10CA43 PO (23:22)
[2017-10-05] MEDS ORDERED: PREG75CA PO (23:22)
[2017-10-05] MEDS ORDERED: APIX2.5T PO (23:22)
[2017-10-05] MEDS ORDERED: HYDR-4076 PO (23:22)
[2017-10-05] MEDS ORDERED: ATOR40TA PO (23:22)
[2017-10-05 23:29] LABS: BASOPHILS % (AUTO) 0.3 % (0.0-2.0); HEMATOCRIT 33.1 % (36.7-47.1); HEMOGLOBIN 10.8 g/dL (12.5-16.3); LYMPHOCYTES # (AUTO) 0.8 K/uL (20.0-40.0); LYMPHOCYTES % (AUTO) 5.6 % (20.5-51.5); MEAN CORPUSCULAR HEMOGLOBIN 29.7 uug (23.8-33.4); MEAN CORPUSCULAR HGB CONC 33 g/dL (32.5-36.3); MEAN CORPUSCULAR VOLUME 90.7 fL (73.0-96.2); MONOCYTES % (AUTO) 6.9 % (0.0-11.0); NEUTROPHILS # (AUTO) 12.1 K/uL (1.8-8.9); NEUTROPHILS % (AUTO) 87.2 % (38.5-71.5); PLATELET COUNT (AUTO) 116 K/uL (152-348); RED BLOOD CELL COUNT(AUTO) 3.64 MIL/uL (4.06-5.63); WHITE BLOOD COUNT (AUTO) 13.9 K/uL (3.6-10.2)
--- NOTE | 2017-10-05 23:30 | NUR ---
RT here. Placed on BIPAP as ordered by MARLO.
[2017-10-05 23:51] LABS: ALANINE AMINOTRANSFERASE 16 U/L (16-63); ALKALINE PHOSPHATASE 66 U/L (50-136); ASPARTATE AMINOTRANSFERASE 8 U/L (15-37); BILIRUBIN,DIRECT 0.3 mg/dL (0.0-0.2); BILIRUBIN,TOTAL 1.4 mg/dL (0.2-1.0); CARBON DIOXIDE 21 mmol/L (21-32); CHLORIDE 102 mmol/L (98-107); CREATININE 1.8 mg/dL (0.6-1.3); POTASSIUM 4.9 mmol/L (3.5-5.1); TOTAL PROTEIN, SERUM 7.5 g/dL (6.4-8.2); UREA NITROGEN, BLOOD 35 mg/dL (7-18)
[2017-10-06 00:05] LABS: GLUCOSE 355 mg/dL (74-106)
[2017-10-06 00:05] LABS: ABG BASE EXCESS -5.5 mmol/L; ABG HCO3 18.5 mmol/L; ABG PCO2 30.9 mmHg (35.0-45.0); ABG PH 7.395 (7.350-7.450); ABG PO2 166.2 mmHg (75.0-100.0); ABG SITE LEFT RADIAL; ABG TOTAL HEMOGLOBIN 10.2 G/dL (13.5-18.0); COHb 0.7 % (0.5-1.5); MetHb 0.3 % (0.0-1.5); O2Hb 97.8 % (94.0-97.0); VENT MODE BIPAP
--- NOTE | 2017-10-06 00:15 | NUR ---
Call placed to [facility], Dr. Flores will be paged.
--- NOTE | 2017-10-06 00:53 | NUR ---
2nd call placed to [facility], Dr. Flores international relations teacher.
--- NOTE | 2017-10-06 01:10 | NUR ---
Dr. Flores called back; spoke with Dr. Hickman.
[2017-10-06] MEDS ORDERED: FUROSEMIDE 20 MG/2 ML VIAL IV ONE (01:15)
[2017-10-06] MEDS ORDERED: FUROSEMIDE 100 MG/10 ML VIAL ONE (01:30)
--- NOTE | 2017-10-06 01:30 | NUR ---
Paredes F# 16 inserted aseptically without problems. Lasix IV given.
[2017-10-06] MEDS ORDERED: ALBUTEROL SULFATE 2.5 MG/3 ML NEBU NEB PRN ×2 (01:45→02:00)
[2017-10-06] MEDS ORDERED: DEXTROSE 50% 50 ML DISP.SYRIN IV PRN (01:45)
[2017-10-06] MEDS ORDERED: MORPHINE SULFATE 4 MG/1 ML DISP.SYRIN IV PRN (01:45)
[2017-10-06] MEDS ORDERED: ACETAMINOPHEN 325 MG TABLET PO PRN (01:45)
[2017-10-06] MEDS ORDERED: ONDANSETRON 4 MG/2 ML VIAL IV PRN (01:45)
[2017-10-06 01:50] LABS: *BILIRUBIN,URIN NEGATIVE (NEGATIVE); *BLOOD, URINE 2+ (NEGATIVE); *CLARITY,URINE CLEAR (CLEAR); *COLOR,URINE YELLOW (YELLOW); *KETONES,URINE TRACE (NEGATIVE); *PROTEIN,URINE TRACE (NEGATIVE); *UROBILINOGEN,URINE 0.2 E.U./dl (NORMAL); LEUKOCYTE ESTERASE ,URINE TRACE (NEGATIVE); NITRITE, URINE NEGATIVE (NEGATIVE); UGLUCOSE 2+ (NEGATIVE)
[2017-10-06 01:56] LABS: BACTERIA,URINE FEW /HPF (NONE SEEN); SQUAMOUS EPITHELIAL CELL,UR FEW /HPF (NONE SEEN); YEAST,URINE FEW /HPF (NONE SEEN)
[2017-10-06] MEDS ORDERED: IPRATROPIUM BROMIDE 0.5 MG/2.5 ML NEBU NEB PRN (02:00)
--- NOTE | 2017-10-06 02:15 | NUR ---
Received admission report from JACKIE HU
--- NOTE | 2017-10-06 02:15 | NUR ---
Report given to Taylor MEJIA.
--- NOTE | 2017-10-06 02:30 | NUR ---
Pt. admitted to [facility], under care of Dr. Flores. Still on BIPAP with current settings: I/E= 12/5 rate=20 RTL0=533%. Belongs List completed.
--- NOTE | 2017-10-06 02:35 | NUR ---
Admitted patient from ER via gurney accompanied by RT and Nursing supervisor livestock yard. Awake, alert and oriented. Able to make needs known. Tolerated non rebreather mask. Routine admission care done. Plan of care initiated.
[2017-10-06 02:54] VITALS: BP 154/76
[2017-10-06] MEDS: BLOOD SUGAR DIAGNOSTIC 1 EACH STRIP VI SCH ×4 (05:52→20:34)
[2017-10-06] MEDS ORDERED: LEVOFLOXACIN 250MG /D5W 50 ML IV ONE (06:11)
[2017-10-06] MEDS: LEVOFLOXACIN 250MG /D5W 250 MG in PREMIXED 1 EACH IV SCH (06:15)
[2017-10-06] MEDS ORDERED: PANTOPRAZOLE SODIUM 40 MG TABLET.DR PO SCH (07:00)
[2017-10-06 07:14] LABS: BASOPHILS % (AUTO) 0.1 % (0.0-2.0); LYMPHOCYTES # (AUTO) 0.8 K/uL (20.0-40.0); LYMPHOCYTES % (AUTO) 8.7 % (20.5-51.5); MEAN CORPUSCULAR HEMOGLOBIN 29.8 uug (23.8-33.4); MEAN CORPUSCULAR HGB CONC 33 g/dL (32.5-36.3); MEAN CORPUSCULAR VOLUME 90.4 fL (73.0-96.2); MONOCYTES # (AUTO) 0.8 K/uL (2.0-10.0); MONOCYTES % (AUTO) 7.8 % (0.0-11.0); NEUTROPHILS # (AUTO) 8.1 K/uL (1.8-8.9); NEUTROPHILS % (AUTO) 83.4 % (38.5-71.5); PLATELET COUNT (AUTO) 115 K/uL (152-348); RED BLOOD CELL COUNT(AUTO) 3.28 MIL/uL (4.06-5.63)
[2017-10-06 07:26] LABS: HEMOGLOBIN 9.8 g/dL (12.5-16.3); WHITE BLOOD COUNT (AUTO) 9.7 K/uL (3.6-10.2)
[2017-10-06 07:27] LABS: HEMATOCRIT 29.7 % (36.7-47.1)
[2017-10-06 07:36] VITALS: BP 151/61
[2017-10-06 08:26] LABS: ALANINE AMINOTRANSFERASE 13 U/L (16-63); ALKALINE PHOSPHATASE 57 U/L (50-136); ASPARTATE AMINOTRANSFERASE 7 U/L (15-37); BILIRUBIN,TOTAL 1.5 mg/dL (0.2-1.0); CARBON DIOXIDE 24 mmol/L (21-32); CHLORIDE 103 mmol/L (98-107); CREATININE 1.8 mg/dL (0.6-1.3); MAGNESIUM 1.4 mg/dL (1.8-2.4); PHOSPHOROUS 4.1 mg/dL (2.5-4.9); POTASSIUM 4.6 mmol/L (3.5-5.1); TOTAL PROTEIN, SERUM 6.9 g/dL (6.4-8.2); UREA NITROGEN, BLOOD 36 mg/dL (7-18)
[2017-10-06 08:46] LABS: GLUCOSE 346 mg/dL (74-106)
[2017-10-06] MEDS: INSULIN REGULAR, HUMAN 300 UNIT/3 ML VIAL SQ PRN ×3 (08:49→17:34)
[2017-10-06] MEDS: PREGABALIN 25 MG CAPSULE PO SCH ×2 (08:52→17:29)
[2017-10-06] MEDS: hydrALAZINE HCL 25 MG TABLET PO SCH ×3 (08:52→16:46)
[2017-10-06] MEDS: CARVEDILOL 25 MG TABLET PO SCH ×2 (08:53→17:29)
[2017-10-06] MEDS: GLIMEPIRIDE 4 MG TABLET PO SCH (08:53)
[2017-10-06] MEDS: POTASSIUM CHLORIDE 10 MEQ CAPSULE.SA PO SCH (08:53)
[2017-10-06] MEDS: PANTOPRAZOLE SODIUM 40 MG TABLET.DR PO SCH (08:57)
[2017-10-06] MEDS ORDERED: APIXABAN 5 MG TABLET PO ONE (09:00)
[2017-10-06] MEDS ORDERED: FUROSEMIDE 20 MG/2 ML VIAL IV SCH (09:00)
[2017-10-06] MEDS: FUROSEMIDE 40 MG/4 ML VIAL IV SCH ×2 (09:06→20:35)
[2017-10-06] MEDS: VERAPAMIL SR 240 MG TABLET.SA PO SCH (09:07)
[2017-10-06 11:30] LABS: *CREATININE,URINE 42.3 mg/dL (30-125); *URINE TOTAL PROTEIN RANDOM 42.8 mg/dL (<150/24HR)
[2017-10-06 11:50] VITALS: BP 130/60
[2017-10-06 12:25] VITALS: BP 117/60
[2017-10-06 12:56] LABS: *BILIRUBIN,URIN NEGATIVE (NEGATIVE); *BLOOD, URINE 2+ (NEGATIVE); *CLARITY,URINE CLOUDY (CLEAR); *COLOR,URINE YELLOW (YELLOW); *KETONES,URINE NEGATIVE (NEGATIVE); *PROTEIN,URINE 1+ (NEGATIVE); *UROBILINOGEN,URINE 0.2 E.U./dl (NORMAL); LEUKOCYTE ESTERASE ,URINE 3+ (NEGATIVE); NITRITE, URINE NEGATIVE (NEGATIVE); UGLUCOSE TRACE (NEGATIVE)
[2017-10-06] MEDS: MAGNESIUM SULFATE/D5W 100 ML IV SCH ×2 (13:35→14:13)
[2017-10-06] MEDS: ASPIRIN 81 MG TAB.CHEW PO SCH (13:35)
[2017-10-06 14:28] LABS: WBC,URINE TNTC /HPF (0-3)
[2017-10-06 14:29] LABS: BACTERIA,URINE NONE SEEN /HPF (NONE SEEN); SQUAMOUS EPITHELIAL CELL,UR NONE SEEN /HPF (NONE SEEN); YEAST,URINE MANY /HPF (NONE SEEN)
[2017-10-06 15:40] VITALS: BP 101/49
[2017-10-06] MEDS ORDERED: APIXABAN 5 MG TABLET PO SCH ×2 (17:00)
[2017-10-06] MEDS: ELIQUIS 2.5 MG PO SCH (17:31)
--- NOTE | 2017-10-06 19:10 | NUR ---
Patient sleeping during intial rounds with simple mask in place, saturating 95% at this time. HOB elevated. Daughter at bedside. Continue care as planned.
[2017-10-06 20:00] VITALS: BP 117/56
[2017-10-06] MEDS: TAMSULOSIN HCL 0.4 MG CAP.SR.24H PO SCH (20:34)
[2017-10-06] MEDS: ATORVASTATIN 40 MG TABLET PO SCH (20:34)
[2017-10-06] MEDS: INSULIN REGULAR, HUMAN 300 UNITS/3 ML VIAL SQ PRN (20:37)
[2017-10-07] VITALS: BP 110/56
[2017-10-07] MEDS: LEVOFLOXACIN 250MG /D5W 250 MG in PREMIXED 1 EACH IV SCH (00:47)
[2017-10-07 04:00] VITALS: BP 133/67
[2017-10-07] MEDS: PANTOPRAZOLE SODIUM 40 MG TABLET.DR PO SCH (06:01)
[2017-10-07] MEDS: BLOOD SUGAR DIAGNOSTIC 1 EACH STRIP VI SCH ×4 (06:02→20:37)
--- NOTE | 2017-10-07 06:08 | NUR ---
Slept well. No complaint presented all night. No significant event reported throughout the night. Continue current plan of care.
[2017-10-07 06:28] LABS: BASOPHILS % (AUTO) 0.2 % (0.0-2.0); EOSINOPHILS # (AUTO) 0.1 K/uL (0.0-0.7); EOSINOPHILS % (AUTO) 0.8 % (0.0-7.0); HEMATOCRIT 27.6 % (36.7-47.1); HEMOGLOBIN 9.1 g/dL (12.5-16.3); LYMPHOCYTES # (AUTO) 1.1 K/uL (20.0-40.0); MEAN CORPUSCULAR HEMOGLOBIN 29.7 uug (23.8-33.4); MEAN CORPUSCULAR HGB CONC 33 g/dL (32.5-36.3); MEAN CORPUSCULAR VOLUME 89.8 fL (73.0-96.2); MONOCYTES # (AUTO) 0.7 K/uL (2.0-10.0); MONOCYTES % (AUTO) 7.6 % (0.0-11.0); NEUTROPHILS # (AUTO) 7.1 K/uL (1.8-8.9); NEUTROPHILS % (AUTO) 79.4 % (38.5-71.5); PLATELET COUNT (AUTO) 117 K/uL (152-348); RED BLOOD CELL COUNT(AUTO) 3.07 MIL/uL (4.06-5.63)
[2017-10-07 06:46] LABS: ALANINE AMINOTRANSFERASE 13 U/L (16-63); ALKALINE PHOSPHATASE 53 U/L (50-136); ASPARTATE AMINOTRANSFERASE 10 U/L (15-37); BILIRUBIN,TOTAL 1.2 mg/dL (0.2-1.0); CARBON DIOXIDE 27 mmol/L (21-32); CHLORIDE 101 mmol/L (98-107); CREATININE 1.9 mg/dL (0.6-1.3); GLUCOSE 109 mg/dL (74-106); MAGNESIUM 1.8 mg/dL (1.8-2.4); PHOSPHOROUS 3.4 mg/dL (2.5-4.9); POTASSIUM 3.5 mmol/L (3.5-5.1); TOTAL PROTEIN, SERUM 6.5 g/dL (6.4-8.2); UREA NITROGEN, BLOOD 37 mg/dL (7-18)
[2017-10-07 08:25] VITALS: BP 146/52
--- NOTE | 2017-10-07 09:10 | NUR ---
RECEIVED REASSIGNMENT REPORT AND SBAR FROM KATALINA MEJIA.
--- NOTE | 2017-10-07 09:13 | NUR ---
Pt reassignment and full SBAR report given to JACKIE Christopher.
[2017-10-07] MEDS: POTASSIUM CHLORIDE 10 MEQ CAPSULE.SA PO SCH (09:29)
[2017-10-07] MEDS: hydrALAZINE HCL 25 MG TABLET PO SCH ×3 (09:29→17:07)
[2017-10-07] MEDS: CARVEDILOL 25 MG TABLET PO SCH ×2 (09:30→17:02)
[2017-10-07] MEDS: VERAPAMIL SR 240 MG TABLET.SA PO SCH (09:30)
[2017-10-07] MEDS: ASPIRIN 81 MG TAB.CHEW PO SCH (09:30)
[2017-10-07] MEDS: FUROSEMIDE 40 MG/4 ML VIAL IV SCH ×2 (09:31→20:36)
[2017-10-07] MEDS: PREGABALIN 25 MG CAPSULE PO SCH ×2 (09:31→17:02)
[2017-10-07] MEDS: GLIMEPIRIDE 4 MG TABLET PO SCH (09:31)
--- NOTE | 2017-10-07 10:00 | NUR ---
SEEN AND EVALUATED BY MOIRA YOUNG. PATIENT WALKED 60 FT WITH WALKER, PHYSICAL THERAPIST SAID THAT PATIENT CAN GO TO THE BATHROOM WITH ASSIST FROM RETAIL BUSINESS MANAGER. WILL CONTINUE TO MONITOR.
[2017-10-07] MEDS: ELIQUIS 2.5 MG PO SCH ×2 (10:38→17:03)
[2017-10-07 11:39] VITALS: BP 119/61
[2017-10-07] MEDS: INSULIN REGULAR, HUMAN 300 UNIT/3 ML VIAL SQ PRN ×2 (11:39→17:01)
[2017-10-07] MEDS ORDERED: POTASSIUM CHLORIDE 20 MEQ POWDER PACKET PO ONE (13:45)
[2017-10-07] MEDS ORDERED: MAGNESIUM SULFATE/D5W 100 ML IV SCH (13:45)
[2017-10-07 16:00] VITALS: BP 123/63
--- NOTE | 2017-10-07 19:30 | NUR ---
PT RECEIVED IN BED, AWAKE. FRIEND AT BEDSIDE. A/OX4. ABLE TO MAKE NEEDS KNOWN. V/S STABLE. IN NO ACUTE DISTRESS. NO C/O PAIN AT THIS TIME. IV INTACT AND PATENT, HEPLOCKED. ON 8L SIMPLE FACE MASK, TOLERATING WELL. AFEBRILE. V-PACING AT 70BPM ON THE TELE MONITOR. DELGADO INTACT ND PATENT. HOB ELEVATED. SAFETY MEASURES IMPLEMENTED. BED ALARM SET. CALL LIGHT WITHIN REACH.
[2017-10-07 20:00] VITALS: BP 112/73
[2017-10-07] MEDS: TAMSULOSIN HCL 0.4 MG CAP.SR.24H PO SCH (20:36)
[2017-10-07] MEDS: ATORVASTATIN 40 MG TABLET PO SCH (20:36)
[2017-10-07] MEDS: INSULIN REGULAR, HUMAN 300 UNITS/3 ML VIAL SQ PRN (20:39)
[2017-10-08] VITALS: BP 121/58
[2017-10-08] MEDS: LEVOFLOXACIN 250MG /D5W 250 MG in PREMIXED 1 EACH IV SCH (00:57)
[2017-10-08 04:00] VITALS: BP 117/63
[2017-10-08] MEDS: PANTOPRAZOLE SODIUM 40 MG TABLET.DR PO SCH (06:10)
--- NOTE | 2017-10-08 06:25 | NUR ---
END OF SHIFT NOTES. PT SLEPT WELL THROUGHOUT SHIFT. IN STABLE CONDITION. IV ABX INFUSED. ON 3L NC, TOLERATING WELL. V-PACING AT 70BPM ON THE TELE MONITOR. DELGADO INTACT AND PATENT. ALL NEEDS ATTENDED. SAFETY MAINTAINED. CALL LIGHT WITHIN REACH.
[2017-10-08] MEDS: BLOOD SUGAR DIAGNOSTIC 1 EACH STRIP VI SCH ×4 (06:32→20:53)
--- NOTE | 2017-10-08 07:47 | NUR ---
RECEIVED SHIFT REPORT FROM GRADE SETTER NURSE. PT RESTING COMFORTABLY IN BED, NO S/S OF DISTRESS, STABLE CONDITION. A/OX4. NO COMPLAINTS OF PAIN VERBALIZED BY PATIENT. CALL LIGHT WITHIN REACH, BED ALARM ON.
[2017-10-08] MEDS: PREGABALIN 25 MG CAPSULE PO SCH ×2 (08:50→16:47)
[2017-10-08] MEDS: GLIMEPIRIDE 4 MG TABLET PO SCH (08:50)
[2017-10-08] MEDS: POTASSIUM CHLORIDE 10 MEQ CAPSULE.SA PO SCH (08:50)
[2017-10-08] MEDS: ASPIRIN 81 MG TAB.CHEW PO SCH (08:51)
[2017-10-08] MEDS: hydrALAZINE HCL 25 MG TABLET PO SCH ×3 (08:51→16:46)
[2017-10-08] MEDS: CARVEDILOL 25 MG TABLET PO SCH ×2 (08:51→17:18)
[2017-10-08] MEDS: VERAPAMIL SR 240 MG TABLET.SA PO SCH (08:52)
[2017-10-08] MEDS: ELIQUIS 2.5 MG PO SCH ×2 (08:52→16:47)
[2017-10-08] MEDS: FUROSEMIDE 40 MG/4 ML VIAL IV SCH ×2 (09:03→20:41)
[2017-10-08 11:20] VITALS: BP 114/73
[2017-10-08] MEDS: INSULIN REGULAR, HUMAN 300 UNIT/3 ML VIAL SQ PRN ×2 (11:35→16:45)
--- NOTE | 2017-10-08 11:56 | NUR ---
BLOOD SUGAR ELEVATED 363. 20 UNITS OF HUMULIN REQUIRED TO BE ADMINISTERED (AGGRESSIVE SLIDING SCALE).
[2017-10-08 13:40] VITALS: BP 133/70
[2017-10-08 15:07] VITALS: BP 125/63
--- NOTE | 2017-10-08 17:48 | NUR ---
STABLE CONDITION, NO S/S OF DISTRESS, RESTING COMFORTABLY IN BED AT THIS TIME. PATIENT GOT UP WITH WALKER SEVERAL TIMES TO USE THE RESTROOM AND TO SIT IN CHAIR AND WAS ABLE TO TOLERATE. BED IN LOCKED/LOW POSITION, SIDE RAILS UP X2, CALL LIGHT WITHIN REACH, BED ALARM ON. BLOOD PRESSURE, BLOOD SUGAR MANAGED. DELGADO IN PLACE AND OUTPUT IS ADEQUATE. COMFORT/SAFETY PROVIDED THROUGHOUT SHIFT.
--- NOTE | 2017-10-08 19:35 | NUR ---
PT RECEIVED IN BED, AWAKE. FAMILY AT BEDSIDE. A/OX4. ABLE TO MAKE NEEDS KNOWN. V/S STABLE. IN NO ACUTE DISTRESS. NO C/O PAIN AT THIS TIME. IV INTACT AND PATENT, HEP LOCKED. HOB ELEVATED. ON 3L NC, TOLERATING WELL. AFEBRILE. DELGADO INTACT AND PATENT. PT C/O OF CONSTIPATION X3 DAYS, MD AWARE. WAITING FOR MD ORDERS. SAFETY MEASURES IMPLEMENTED. BED ALARM SET. CALL LIGHT WITHIN REACH.
[2017-10-08 20:39] VITALS: BP 133/67
[2017-10-08] MEDS: ATORVASTATIN 40 MG TABLET PO SCH (20:40)
[2017-10-08] MEDS: TAMSULOSIN HCL 0.4 MG CAP.SR.24H PO SCH (20:40)
[2017-10-08] MEDS ORDERED: BISACODYL 5 MG TABLET.DR PO ONE (20:45)
[2017-10-08] MEDS: INSULIN REGULAR, HUMAN 300 UNITS/3 ML VIAL SQ PRN (20:55)
[2017-10-09 04:00] VITALS: BP 115/57
[2017-10-09 05:51] LABS: BASOPHILS % (AUTO) 0.4 % (0.0-2.0); EOSINOPHILS # (AUTO) 0.2 K/uL (0.0-0.7); EOSINOPHILS % (AUTO) 2.7 % (0.0-7.0); HEMATOCRIT 29.5 % (36.7-47.1); HEMOGLOBIN 9.8 g/dL (12.5-16.3); LYMPHOCYTES # (AUTO) 1.1 K/uL (20.0-40.0); LYMPHOCYTES % (AUTO) 16.5 % (20.5-51.5); MEAN CORPUSCULAR HEMOGLOBIN 29.7 uug (23.8-33.4); MEAN CORPUSCULAR HGB CONC 33 g/dL (32.5-36.3); MEAN CORPUSCULAR VOLUME 89.3 fL (73.0-96.2); MONOCYTES # (AUTO) 0.5 K/uL (2.0-10.0); MONOCYTES % (AUTO) 7.2 % (0.0-11.0); NEUTROPHILS # (AUTO) 4.9 K/uL (1.8-8.9); NEUTROPHILS % (AUTO) 73.2 % (38.5-71.5); PLATELET COUNT (AUTO) 159 K/uL (152-348); WHITE BLOOD COUNT (AUTO) 6.7 K/uL (3.6-10.2)
[2017-10-09] MEDS ORDERED: LEVOFLOXACIN 250 MG TABLET PO SCH (06:00)
[2017-10-09 06:03] LABS: CARBON DIOXIDE 30 mmol/L (21-32); CHLORIDE 102 mmol/L (98-107); CREATININE 1.4 mg/dL (0.6-1.3); GLUCOSE 139 mg/dL (74-106); MAGNESIUM 1.4 mg/dL (1.8-2.4); POTASSIUM 3.3 mmol/L (3.5-5.1); UREA NITROGEN, BLOOD 34 mg/dL (7-18)
[2017-10-09] MEDS: PANTOPRAZOLE SODIUM 40 MG TABLET.DR PO SCH (06:07)
--- NOTE | 2017-10-09 06:35 | NUR ---
END OF SHIFT NOTES. PT SLEPT INTERMITTENTLY THROUGHOUT SHIFT. IN STABLE CONDITION. IV INTACT AND PATENT, HEPLOCKED. BS CONTROLLED. CONT ON 3LNC, TOLERATED WELL. AFEBRILE. DELGADO INTACT AND PATENT. NO BM AFTER DULCOLAX ADMINISTRATION. PRUNE JUICE PROVIDED. ALL NEEDS ATTENDED. SAFETY MAINTAINED. CALL LIGHT WITHIN REACH.
[2017-10-09] MEDS: BLOOD SUGAR DIAGNOSTIC 1 EACH STRIP VI SCH ×2 (06:37→10:46)
--- NOTE | 2017-10-09 07:25 | NUR ---
PT RECEIVED IN BED, AWAKE. A/OX4. ABLE TO MAKE NEEDS KNOWN. V/S STABLE. IN NO ACUTE DISTRESS. NO C/O PAIN AT THIS TIME. IV INTACT AND PATENT, DELGADO INTACT ND PATENT. HOB ELEVATED. SAFETY MEASURES IMPLEMENTED. BED ALARM SET. CALL LIGHT WITHIN REACH.
[2017-10-09] MEDS: INSULIN REGULAR, HUMAN 300 UNIT/3 ML VIAL SQ PRN ×2 (07:28→11:05)
[2017-10-09] MEDS: CARVEDILOL 25 MG TABLET PO SCH (07:49)
[2017-10-09] MEDS: POTASSIUM CHLORIDE 10 MEQ CAPSULE.SA PO SCH (08:02)
[2017-10-09] MEDS: PREGABALIN 25 MG CAPSULE PO SCH (08:02)
[2017-10-09] MEDS: ELIQUIS 2.5 MG PO SCH (08:02)
[2017-10-09] MEDS: VERAPAMIL SR 240 MG TABLET.SA PO SCH (08:02)
[2017-10-09] MEDS: ASPIRIN 81 MG TAB.CHEW PO SCH (08:03)
[2017-10-09] MEDS: GLIMEPIRIDE 4 MG TABLET PO SCH (08:03)
[2017-10-09] MEDS: hydrALAZINE HCL 25 MG TABLET PO SCH (08:03)
[2017-10-09] MEDS ORDERED: FUROSEMIDE 40 MG/4 ML VIAL IV SCH (09:00)
--- NOTE | 2017-10-09 11:10 | NUR ---
d/c folly catheter per md orders.
[2017-10-09 11:31] VITALS: BP 96/52
[2017-10-09] MEDS ORDERED: MAGNESIUM OXIDE 400 MG TABLET PO ONE ×2 (12:00→13:00)
[2017-10-09] MEDS ORDERED: POTASSIUM CHLORIDE 10 MEQ CAPSULE.SA PO ONE (12:15)
--- NOTE | 2017-10-09 13:05 | NUR ---
d/c orders received noted and carried out,d/c instructions and education given to the pt and family.d/c heplock per md orders,pt left the facility via private car in stable conditions,
== END 2017-10-09 13:15 | disposition home or self-care (01) | DRG 291 ==
LOC: ER 22:23 → TELE-TD 10-06 01:20 → TELE 10-07 09:34 → MED 10-08 17:35
PROVIDERS: ADMIT Internal Medicine
PROC: 5A09357 Assistance with Respiratory Ventilation, Less than 24 Consecutive Hours, Continuous Positive Airway Pressure (ICD-10-PCS; principal; 2017-10-06)
DX: I13.0 Hypertensive heart and chronic kidney disease with heart failure and stage 1 through stage 4 chronic kidney disease, or unspecified chronic kidney disease (principal); I50.33 Acute on chronic diastolic (congestive) heart failure; J96.01 Acute respiratory failure with hypoxia; E11.22 Type 2 diabetes mellitus with diabetic chronic kidney disease; E11.42 Type 2 diabetes mellitus with diabetic polyneuropathy; Q43.3 Congenital malformations of intestinal fixation; I48.0 Paroxysmal atrial fibrillation; B37.49 Other urogenital candidiasis; I45.2 Bifascicular block; Z99.81 Dependence on supplemental oxygen; G31.84 Mild cognitive impairment of uncertain or unknown etiology; I25.10 Atherosclerotic heart disease of native coronary artery without angina pectoris; I25.2 Old myocardial infarction; J44.9 Chronic obstructive pulmonary disease, unspecified; N18.3 Chronic kidney disease, stage 3 (moderate); N40.0 Benign prostatic hyperplasia without lower urinary tract symptoms; M81.0 Age-related osteoporosis without current pathological fracture; Z79.84 Long term (current) use of oral hypoglycemic drugs; Z79.02 Long term (current) use of antithrombotics/antiplatelets; Z79.82 Long term (current) use of aspirin; Z79.899 Other long term (current) drug therapy; Z79.01 Long term (current) use of anticoagulants; Z95.1 Presence of aortocoronary bypass graft; Z95.0 Presence of cardiac pacemaker; E78.5 Hyperlipidemia, unspecified; Z86.73 Personal history of transient ischemic attack (TIA), and cerebral infarction without residual deficits; M19.90 Unspecified osteoarthritis, unspecified site
CPT/HCPCS: 36415; 36600; 70030-TC; 71045; 76770; 83605; 83735; 84100; 84156; 84300; 85025; 85730; 87040; 87086; 93005; 94660; A4663; J1815; J1940; J1956; J2405; J3475

== ENCOUNTER 2017-11-30 17:42 | Inpatient (IN) | payer MEDICARE, OTHER ==
[~2017-11-30] VITALS: Ht 177.8 cm; Wt 85.0 kg
[~2017-11-30 17:42] MED LIST changes: -AMLO5TAB2 PO; +APIX2.5T PO; -ASPI-618 PO; +ATOR40TA PO; -CLOP75TA15 PO; -FURO-151 PO; +FURO40TA5 PO; -GABA-534 PO; +HYDR-4076 PO; -IRON1TAB PO; -ISOS60TA4 PO; -LOSA25TA3 PO; +POTA10CA43 PO; +PREG75CA PO; -SIMV80TA5 PO; +VERA240C2 PO
--- NOTE | 2017-11-30 17:52 | NUR ---
bs= 410
[2017-11-30] MEDS ORDERED: ASPI81TA31 PO (18:03)
[2017-11-30] MEDS ORDERED: IBUP-1957 PO (18:03)
[2017-11-30] MEDS ORDERED: AMLO5TAB2 PO (18:03)
[2017-11-30] MEDS ORDERED: SILD50TA PO (18:03)
[2017-11-30] MEDS ORDERED: LOSA25TA13 PO (18:03)
[2017-11-30] MEDS ORDERED: VALS80TA2 PO (18:03)
[2017-11-30] MEDS ORDERED: CLOP75TA15 PO (18:03)
[2017-11-30] MEDS ORDERED: GUAI118S10 PO (18:03)
[2017-11-30 18:51] LABS: BASOPHILS % (AUTO) 0.3 % (0.0-2.0); HEMATOCRIT 25.5 % (36.7-47.1); HEMOGLOBIN 8.6 g/dL (12.5-16.3); LYMPHOCYTES # (AUTO) 0.7 K/uL (20.0-40.0); LYMPHOCYTES % (AUTO) 7.9 % (20.5-51.5); MEAN CORPUSCULAR HEMOGLOBIN 30.3 uug (23.8-33.4); MEAN CORPUSCULAR HGB CONC 34 g/dL (32.5-36.3); MEAN CORPUSCULAR VOLUME 89.9 fL (73.0-96.2); MONOCYTES # (AUTO) 0.6 K/uL (2.0-10.0); MONOCYTES % (AUTO) 7.6 % (0.0-11.0); NEUTROPHILS % (AUTO) 84.2 % (38.5-71.5); PLATELET COUNT (AUTO) 125 K/uL (152-348); RED BLOOD CELL COUNT(AUTO) 2.84 MIL/uL (4.06-5.63); WHITE BLOOD COUNT (AUTO) 8.3 K/uL (3.6-10.2)
[2017-11-30 18:59] LABS: CARBON DIOXIDE 20 mmol/L (21-32); CHLORIDE 99 mmol/L (98-107); CREATININE 1.5 mg/dL (0.6-1.3); POTASSIUM 4.1 mmol/L (3.5-5.1); UREA NITROGEN, BLOOD 28 mg/dL (7-18)
[2017-11-30 19:07] LABS: GLUCOSE 467 mg/dL (74-106)
--- NOTE | 2017-11-30 19:08 | NUR ---
REPORT TAKEN FROM JACKIE NAJERA. ASSUMING PT CARE AT THIS TIME.
--- NOTE | 2017-11-30 19:18 | NUR ---
PT RESTING COMFORTABLY IN BED, NO SIGNS OF DISTRESS NOTED. PROVIDED A BLANKET. FAMILY AT BEDSIDE.
--- NOTE | 2017-11-30 19:44 | NUR ---
[facility] CALLED FOR PANEL
[2017-11-30] MEDS ORDERED: INSULIN REGULAR, HUMAN 1,000 UNITS/10 ML VIAL SUBCUT ONE (20:00)
[2017-11-30] MEDS ORDERED: INSULIN NPH 1,000 UNITS/10 ML VIAL SQ ONE (20:17)
[2017-11-30] MEDS ORDERED: INSULIN REGULAR, HUMAN 300 UNIT/3 ML VIAL ONE (20:27)
[2017-11-30 20:55] VITALS: BP 122/74
--- NOTE | 2017-11-30 21:06 | NUR ---
REPORT GIVEN TO JACKIE VARGAS
--- NOTE | 2017-11-30 21:12 | NUR ---
FAMILY CONTACT INFO: MICHELL [phone] VIBHA [phone]
--- NOTE | 2017-11-30 21:13 | NUR ---
Pt. admitted to TELE, under care of Dr. GRIFFITHS Belongs List completed
--- NOTE | 2017-11-30 22:30 | NUR ---
Admitted this 82 y/o male patient via gurney, awake alert & oriented no SOB denies chest pain. classroom monitor applied- AV-paced on the monitor. Vital signs WNL.
[2017-11-30] MEDS ORDERED: MIRALAX 17 GM POWD.PACK PO PRN (23:00)
[2017-11-30] MEDS ORDERED: ALBUTEROL SULFATE 2.5 MG/3 ML NEBU NEB PRN (23:00)
[2017-11-30] MEDS ORDERED: ACETAMINOPHEN 325 MG TABLET PO PRN (23:00)
[2017-11-30] MEDS ORDERED: ONDANSETRON 4 MG/2 ML VIAL IV PRN (23:00)
[2017-11-30] MEDS ORDERED: DEXTROSE 50% 50 ML DISP.SYRIN IV PRN (23:00)
[2017-11-30] MEDS ORDERED: MORPHINE SULFATE 2 MG/1 ML DISP.SYRIN IV PRN (23:00)
[2017-11-30 23:25] LABS: *BILIRUBIN,URIN NEGATIVE (NEGATIVE); *BLOOD, URINE 2+ (NEGATIVE); *CLARITY,URINE CLOUDY (CLEAR); *COLOR,URINE YELLOW (YELLOW); *KETONES,URINE 1+ (NEGATIVE); *PROTEIN,URINE 1+ (NEGATIVE); *UROBILINOGEN,URINE 0.2 E.U./dl (NORMAL); LEUKOCYTE ESTERASE ,URINE 1+ (NEGATIVE); NITRITE, URINE NEGATIVE (NEGATIVE)
[2017-11-30] MEDS: BLOOD SUGAR DIAGNOSTIC 1 EACH STRIP VI SCH (23:27)
[2017-11-30 23:30] LABS: UGLUCOSE 2+ (NEGATIVE)
[2017-11-30] MEDS: INSULIN REGULAR, HUMAN 300 UNITS/3 ML VIAL SQ PRN (23:32)
--- NOTE | 2017-11-30 23:35 | NUR ---
BLOOD SUGAR WAS 381, ADMINISTERED 10 UNITS OF REGULAR INSULIN PER SLIDING SCALE PROTOCOL.
[2017-11-30 23:40] LABS: BACTERIA,URINE MANY /HPF (NONE SEEN); SQUAMOUS EPITHELIAL CELL,UR FEW /HPF (NONE SEEN); WBC,URINE 80-100 /HPF (0-3)
[2017-12-01 00:40] VITALS: BP 166/62
--- NOTE | 2017-12-01 00:45 | NUR ---
Current body temp. 100.3 F. patient awake & denies any pain. Cooling measures applied. Paged EPIC economics analyst for further orders.
--- NOTE | 2017-12-01 01:13 | NUR ---
Re-checked body temp post initial intervention, T= 99.9F
--- NOTE | 2017-12-01 02:00 | NUR ---
Blood culture x 2 was ordered.
[2017-12-01 04:00] VITALS: BP 163/73
--- NOTE | 2017-12-01 06:23 | NUR ---
Pt SLEPT WELL THROUGHOUT THE NIGHT, DENIES PAIN/HEADACHE, ABLE TO USE URINAL INDEPENDENTLY, NON-PRODUCTIVE COUGHING NOTED, TEMPERATURE OF 100.3 HAS DECREASED THROUGHOUT THE NIGHT AFTER COOLING MEASURES PROVIDED, AND LAST TEMPERATURE RECORDED @ 0400 WAS 98.3, NOTIFIED ATTENDING METALLURGICAL INSPECTOR, ORDERED BLOOD CULTURE WHICH WAS COLLECTED @ 0140. WILL CONTINUE TO MONITOR Pt.
--- NOTE | 2017-12-01 06:25 | NUR ---
Afebrile at this time 98.3. AV-paced on the monitor. No acute resp distress.
[2017-12-01] MEDS: PANTOPRAZOLE SODIUM 40 MG TABLET.DR PO SCH (06:38)
[2017-12-01] MEDS: BLOOD SUGAR DIAGNOSTIC 1 EACH STRIP VI SCH ×4 (06:41→21:04)
[2017-12-01 07:00] VITALS: BP 164/66
--- NOTE | 2017-12-01 07:10 | NUR ---
RECEIVED REPORT FROM INDUSTRIAL BOILERMAKER NURSE, PATIENT IN BED AWAKE, NO DISTRESS NOTED, BED IN LOW POSITION, SIDE RAILS UP X2. BED ALARM SET. REMINDED PATIENT NOT TO GET UP WITHOUT CALLING FOR ASSISTANCE.
--- NOTE | 2017-12-01 07:11 | NUR ---
BLOOD SUGAR @ 0645 WAS 249, WILL ENDORSE TO DAY SHIFT NURSE TO ADMINISTER INSULIN PER SLIDING SCALE PROTOCOL. TEMPERATURE WENT BACK UP TO 100.2 @ 0700. ADMINISTERED TYLENOL 650 MG PO PRN FOR FEVER, CONTINUE TO PROVIDE COOLING MEASURES. WILL ENDORSE TO DAY SHIFT NURSE.
[2017-12-01 07:20] LABS: BASOPHILS % (AUTO) 0.1 % (0.0-2.0); HEMATOCRIT 25.1 % (36.7-47.1); HEMOGLOBIN 8.2 g/dL (12.5-16.3); LYMPHOCYTES # (AUTO) 0.7 K/uL (20.0-40.0); LYMPHOCYTES % (AUTO) 6.3 % (20.5-51.5); MEAN CORPUSCULAR HGB CONC 33 g/dL (32.5-36.3); MEAN CORPUSCULAR VOLUME 88.4 fL (73.0-96.2); MONOCYTES # (AUTO) 0.7 K/uL (2.0-10.0); MONOCYTES % (AUTO) 6.3 % (0.0-11.0); NEUTROPHILS # (AUTO) 9.7 K/uL (1.8-8.9); NEUTROPHILS % (AUTO) 87.3 % (38.5-71.5); PLATELET COUNT (AUTO) 146 K/uL (152-348); RED BLOOD CELL COUNT(AUTO) 2.83 MIL/uL (4.06-5.63); WHITE BLOOD COUNT (AUTO) 11.2 K/uL (3.6-10.2)
[2017-12-01 07:42] LABS: ALANINE AMINOTRANSFERASE 26 U/L (16-63); ALKALINE PHOSPHATASE 69 U/L (50-136); ASPARTATE AMINOTRANSFERASE 20 U/L (15-37); BILIRUBIN,TOTAL 1.5 mg/dL (0.2-1.0); CARBON DIOXIDE 22 mmol/L (21-32); CHLORIDE 101 mmol/L (98-107); CHOLESTEROL 117 mg/dL (<200); CREATININE 1.3 mg/dL (0.6-1.3); GLUCOSE 250 mg/dL (74-106); HDL CHOLESTEROL 12 mg/dL (40-60); MAGNESIUM 1.9 mg/dL (1.8-2.4); PHOSPHOROUS 2.5 mg/dL (2.5-4.9); POTASSIUM 3.6 mmol/L (3.5-5.1); TOTAL PROTEIN, SERUM 7.1 g/dL (6.4-8.2); TRIGLYCERIDES 166 MG/DL (30-150); UREA NITROGEN, BLOOD 24 mg/dL (7-18)
[2017-12-01 08:22] LABS: IRON, SERUM 10 ug/dL (50-175)
[2017-12-01] MEDS ORDERED: Medication Not On Formulary EA (Apixaban (Eliquis) 2.5 MG) PO SCH (09:00)
[2017-12-01] MEDS: INSULIN REGULAR, HUMAN 300 UNIT/3 ML VIAL SQ PRN ×3 (09:17→16:49)
[2017-12-01] MEDS: FUROSEMIDE 40 MG TABLET PO SCH (09:18)
[2017-12-01] MEDS: AMLODIPINE 5 MG TABLET PO SCH (09:18)
[2017-12-01] MEDS: ASPIRIN 81 MG TAB.CHEW PO SCH (09:18)
[2017-12-01] MEDS: CARVEDILOL 12.5 MG TABLET PO SCH ×2 (09:18→21:10)
[2017-12-01] MEDS: GLIMEPIRIDE 4 MG TABLET PO SCH (09:18)
[2017-12-01 09:23] LABS: THYROID STIMULATING HORMONE 0.474 mIU/mL (0.358-3.740)
[2017-12-01] MEDS ORDERED: CEFTRIAXONE 1 G VIAL IV SCH (10:15)
[2017-12-01] MEDS ORDERED: CEFTRIAXONE 1 G VIAL IM SCH (10:15)
[2017-12-01] MEDS: CEFTRIAXONE 1 G in IV DEXTROSE 5% 50 ML IV SCH (11:23)
[2017-12-01 11:26] VITALS: BP 120/60
[2017-12-01 16:02] VITALS: BP 135/62
[2017-12-01 17:18] LABS: *OCCULT BLOOD STOOL POSITIVE (NEGATIVE)
--- NOTE | 2017-12-01 18:52 | NUR ---
patient has been cooperative with care. Patient desaturating oxygen at 2L, increased to 3L. Currently patient in bed awake, no distress noted, bed in low position, side rails up x2. bed alarm on.
[2017-12-01 20:21] VITALS: BP 153/64
[2017-12-01] MEDS: ELIQUIS 2.5 MG PO SCH (20:43)
[2017-12-01] MEDS ORDERED: DOCUSATE SODIUM 250 MG CAPSULE PO SCH (21:00)
[2017-12-01] MEDS: TAMSULOSIN HCL 0.4 MG CAP.SR.24H PO SCH (21:06)
[2017-12-01] MEDS: INSULIN GLARGINE,HUM 300 UNITS/3 ML CARTRIDGE SQ SCH (21:19)
[2017-12-01] MEDS: INSULIN REGULAR, HUMAN 300 UNITS/3 ML VIAL SQ PRN (21:26)
--- NOTE | 2017-12-01 21:30 | NUR ---
RECEIVED Pt IN BED SLEEPING, EASY TO AROUSE, AWAKE A/O X 3, ABLE TO COMPREHEND AND FOLLOW INSTRUCTIONS, COMPLIANT WITH MEDS AND CARE STAFF. BLOOD SUGAR @ 2100 WAS 144. ADMINISTERED 2 UNITS OF REGULAR INSULIN PER SLIDING SCALE PROTOCOL, ADMINISTERED 10 UNITS OF LANTUS PER MD ORDER. WILL CONTINUE TO MONITOR Pt THROUGHOUT THE NIGHT FOR S/S OF HYPER/HYPOGLYCEMIA.
[2017-12-02 04:58] VITALS: BP 133/60
[2017-12-02 06:58] LABS: ALANINE AMINOTRANSFERASE 51 U/L (16-63); ALKALINE PHOSPHATASE 85 U/L (50-136); ASPARTATE AMINOTRANSFERASE 53 U/L (15-37); BILIRUBIN,TOTAL 1.4 mg/dL (0.2-1.0); CARBON DIOXIDE 23 mmol/L (21-32); CHLORIDE 103 mmol/L (98-107); CREATINE KINASE, TOTAL 19 U/L (39-308); CREATININE 1.1 mg/dL (0.6-1.3); GLUCOSE 154 mg/dL (74-106); MAGNESIUM 1.8 mg/dL (1.8-2.4); PHOSPHOROUS 3.1 mg/dL (2.5-4.9); POTASSIUM 3.1 mmol/L (3.5-5.1); TOTAL PROTEIN, SERUM 6.6 g/dL (6.4-8.2); UREA NITROGEN, BLOOD 21 mg/dL (7-18)
[2017-12-02] MEDS: PANTOPRAZOLE SODIUM 40 MG TABLET.DR PO SCH (07:00)
[2017-12-02] MEDS ORDERED: IV NORMAL SALINE 100 ML ONE (07:02)
[2017-12-02] MEDS ORDERED: IOHEXOL 300MG/ML 100 ML INFUS..BTL IV ONE ×2 (07:02)
[2017-12-02] MEDS ORDERED: IOHEXOL 350 100 ML INFUS..BTL ONE (07:02)
[2017-12-02] MEDS ORDERED: BARIUM SULFATE 450 ML ORAL.SUSP ONE (07:02)
[2017-12-02] MEDS: BLOOD SUGAR DIAGNOSTIC 1 EACH STRIP VI SCH ×4 (07:12→20:17)
--- NOTE | 2017-12-02 07:15 | NUR ---
Pt SLEPT WELL THROUGHOUT THE NIGHT. KEPT NPO FOR CT SCAN W/ CONTRAST TODAY. Pt HAD 300 ML OUTPUT. BLOOD SUGAR THIS MORNING WAS 160. ENDORSED TO DAY SHIFT NURSE. BLOOD PRESSURE WAS STABLE THROUGHOUT THE NIGHT. DO S/S OF DISTRESS, NO COMPLAINTS OF PAIN. Pt CONTINUES TO BE COMPLIANT WITH MEDS AND CARE STAFF.
--- NOTE | 2017-12-02 07:15 | NUR ---
Received report from nightclub manager nurse, patient in bed awake, and started on contrast. Patient advised that he will not drink or eat anything other than the contrast. Currently patient in bed, awake, no distress noted, bed in low position, side rails up x2.
[2017-12-02 07:20] LABS: BASOPHILS % (AUTO) 0.2 % (0.0-2.0); EOSINOPHILS % (AUTO) 0.1 % (0.0-7.0); HEMATOCRIT 23.8 % (36.7-47.1); HEMOGLOBIN 8.1 g/dL (12.5-16.3); LYMPHOCYTES # (AUTO) 0.8 K/uL (20.0-40.0); LYMPHOCYTES % (AUTO) 10.5 % (20.5-51.5); MEAN CORPUSCULAR HEMOGLOBIN 29.8 uug (23.8-33.4); MEAN CORPUSCULAR HGB CONC 34 g/dL (32.5-36.3); MEAN CORPUSCULAR VOLUME 88.1 fL (73.0-96.2); MONOCYTES # (AUTO) 0.5 K/uL (2.0-10.0); MONOCYTES % (AUTO) 6.8 % (0.0-11.0); NEUTROPHILS # (AUTO) 6.3 K/uL (1.8-8.9); NEUTROPHILS % (AUTO) 82.4 % (38.5-71.5); PLATELET COUNT (AUTO) 123 K/uL (152-348); RED BLOOD CELL COUNT(AUTO) 2.71 MIL/uL (4.06-5.63)
[2017-12-02 07:25] LABS: WHITE BLOOD COUNT (AUTO) 7.7 K/uL (3.6-10.2)
[2017-12-02] MEDS ORDERED: ETOMIDATE 20 MG/10 ML VIAL MC ONE (07:34)
[2017-12-02] MEDS ORDERED: IV NORMAL SALINE 1000 ML BAG IV ONE (07:34)
[2017-12-02] MEDS ORDERED: LIDOCAINE HCL 2% 20 ML VIAL MC ONE (07:34)
[2017-12-02] MEDS: GLIMEPIRIDE 4 MG TABLET PO SCH (09:00)
[2017-12-02] MEDS: CARVEDILOL 12.5 MG TABLET PO SCH ×2 (09:00→20:16)
[2017-12-02] MEDS: AMLODIPINE 5 MG TABLET PO SCH (09:00)
[2017-12-02] MEDS: FUROSEMIDE 40 MG TABLET PO SCH (09:00)
[2017-12-02] MEDS: ASPIRIN 81 MG TAB.CHEW PO SCH (09:00)
[2017-12-02] MEDS: ELIQUIS 2.5 MG PO SCH ×2 (09:00→17:00)
[2017-12-02] MEDS ORDERED: IV D5 1/2 NS 1000 ML 1,000 ML IV PRN (11:30)
[2017-12-02 11:35] VITALS: BP 142/70
[2017-12-02] MEDS: CEFTRIAXONE 1 G in IV DEXTROSE 5% 50 ML IV SCH (13:03)
[2017-12-02] MEDS: INSULIN REGULAR, HUMAN 300 UNIT/3 ML VIAL SQ PRN (13:05)
[2017-12-02 15:40] VITALS: BP 148/69
[2017-12-02] MEDS: POTASSIUM CHLORIDE 50 ML IV SCH ×4 (16:54→22:00)
--- NOTE | 2017-12-02 17:05 | NUR ---
PATIENT TAKEN DOWN TO SURGERY
--- NOTE | 2017-12-02 18:03 | NUR ---
PATIENT RETURNED FROM SURGERY.
--- NOTE | 2017-12-02 18:45 | NUR ---
PATIENT HAS BEEN COOPERATIVE WITH CARE, NG TUBE INSERTED TO SUCTION CT CONTRAST MATERIAL, AND REMOVED BY SURGERY PRIOR TO EGD. CURRENTLY PATIENT IS IN BED, NO DISTRESS NOTED, BED IN LOW POSITION, SIDE RAILS UP X2, BED ALARM ON. CONTINUE TO MONITOR GLUCOSE LEVELS.
--- NOTE | 2017-12-02 19:30 | NUR ---
Received patient laying comfortably in bed. No acute distress noted. Family at bedside. Patient is asleep. Family reports poor appetite and still groggy from EGD this afternoon. Patient is on 02 3L NC. Noted left chest wall pace maker. IVF running on the right AC. Skin appears to be intact. Bed is on low and locked position. Safety initiated. Call light within reach. Will continue to monitor.
[2017-12-02 20:14] VITALS: BP 161/65
[2017-12-02] MEDS: DOCUSATE SODIUM 100 MG CAPSULE PO SCH (20:16)
[2017-12-02] MEDS: FUROSEMIDE 20 MG/2 ML VIAL IV SCH (20:16)
[2017-12-02] MEDS: TAMSULOSIN HCL 0.4 MG CAP.SR.24H PO SCH (20:16)
[2017-12-02] MEDS: INSULIN GLARGINE,HUM 300 UNITS/3 ML CARTRIDGE SQ SCH (20:21)
[2017-12-02] MEDS: INSULIN REGULAR, HUMAN 300 UNITS/3 ML VIAL SQ PRN (20:21)
[2017-12-02] MEDS: MEROPENEM 500 MG in IV NORMAL SALINE 50 ML IV SCH (21:13)
[2017-12-03 05:14] VITALS: BP 145/62
--- NOTE | 2017-12-03 06:01 | NUR ---
Patient slept intermittently t/o shift. No acute distress noted. Vital signs stable. Patient remains on 02 3L NC. No c/o pain and SOB. Meds given as ordered with no adverse effects. Urinating well. Small BM. Safety and comfort measures maintained t/o shift. All needs met.
[2017-12-03] MEDS: BLOOD SUGAR DIAGNOSTIC 1 EACH STRIP VI SCH ×4 (06:31→20:11)
[2017-12-03] MEDS: PANTOPRAZOLE SODIUM 40 MG VIAL IV SCH (06:31)
[2017-12-03 07:52] LABS: ALANINE AMINOTRANSFERASE 117 U/L (16-63); ALKALINE PHOSPHATASE 124 U/L (50-136); ASPARTATE AMINOTRANSFERASE 112 U/L (15-37); BILIRUBIN,TOTAL 0.9 mg/dL (0.2-1.0); CARBON DIOXIDE 22 mmol/L (21-32); CHLORIDE 102 mmol/L (98-107); CREATININE 1.2 mg/dL (0.6-1.3); GLUCOSE 244 mg/dL (74-106); MAGNESIUM 1.9 mg/dL (1.8-2.4); PHOSPHOROUS 3.9 mg/dL (2.5-4.9); POTASSIUM 2.9 mmol/L (3.5-5.1); TOTAL PROTEIN, SERUM 6.4 g/dL (6.4-8.2); UREA NITROGEN, BLOOD 22 mg/dL (7-18)
--- NOTE | 2017-12-03 08:00 | NUR ---
AWAKE ALERT COOPERATE WELL NO SOB CONTINUE O2 AT 3L O2 SAT WNL NO PAIN ON FALL PRECAUTION CALL GALVEZ IN REACH AND BED ALARM ON
[2017-12-03] MEDS: FUROSEMIDE 20 MG/2 ML VIAL IV SCH ×2 (08:06→20:11)
[2017-12-03] MEDS: ASPIRIN 81 MG TAB.CHEW PO SCH (08:06)
[2017-12-03] MEDS: GLIMEPIRIDE 4 MG TABLET PO SCH (08:07)
[2017-12-03] MEDS: AMLODIPINE 5 MG TABLET PO SCH (08:07)
[2017-12-03] MEDS: CARVEDILOL 12.5 MG TABLET PO SCH ×2 (08:07→20:13)
[2017-12-03] MEDS: INSULIN REGULAR, HUMAN 300 UNIT/3 ML VIAL SQ PRN ×4 (08:09→20:17)
[2017-12-03] MEDS: ELIQUIS 2.5 MG PO SCH ×2 (08:52→16:56)
[2017-12-03 09:21] LABS: BASOPHILS % (AUTO) 0.3 % (0.0-2.0); EOSINOPHILS % (AUTO) 0.4 % (0.0-7.0); HEMATOCRIT 26.2 % (36.7-47.1); HEMOGLOBIN 8.7 g/dL (12.5-16.3); LYMPHOCYTES # (AUTO) 0.8 K/uL (20.0-40.0); LYMPHOCYTES % (AUTO) 9.8 % (20.5-51.5); MEAN CORPUSCULAR HEMOGLOBIN 29.3 uug (23.8-33.4); MEAN CORPUSCULAR HGB CONC 33 g/dL (32.5-36.3); MEAN CORPUSCULAR VOLUME 88.7 fL (73.0-96.2); MONOCYTES # (AUTO) 0.6 K/uL (2.0-10.0); MONOCYTES % (AUTO) 7.4 % (0.0-11.0); NEUTROPHILS # (AUTO) 6.8 K/uL (1.8-8.9); NEUTROPHILS % (AUTO) 82.1 % (38.5-71.5); PLATELET COUNT (AUTO) 147 K/uL (152-348); RED BLOOD CELL COUNT(AUTO) 2.95 MIL/uL (4.06-5.63); WHITE BLOOD COUNT (AUTO) 8.2 K/uL (3.6-10.2)
--- NOTE | 2017-12-03 09:30 | NUR ---
PHAMACY WAS INFORM OF ABNORMAL LAB K+2.[address] GRIFFITHS WILL GIVE ORDER
[2017-12-03] MEDS: MEROPENEM 500 MG in IV NORMAL SALINE 50 ML IV SCH ×2 (09:40→20:11)
--- NOTE | 2017-12-03 10:35 | NUR ---
TERESA CRABTREE WAS TEXTS AND MESSAGE LEFT STATE WILL PUT ORDER LATER
[2017-12-03 11:06] VITALS: BP 111/63
[2017-12-03] MEDS ORDERED: POTASSIUM CHLORIDE 20 MEQ TAB.PRT.SR PO ONE (13:15)
--- NOTE | 2017-12-03 13:35 | NUR ---
KCL PO GIVEN ORDER EAT LUNCH MOD AMT FAMILY AT BEDSIDE
[2017-12-03 15:03] VITALS: BP 125/66
--- NOTE | 2017-12-03 18:00 | NUR ---
HEMODYNAMIC STATUS STABLE NO ACUTE DISTRESS NO PAIN SAFETY MEASURE PROVIDED CALL LIGHT IN REACH
--- NOTE | 2017-12-03 19:30 | NUR ---
Received patient laying comfortably in bed. No acute distress noted. Patient is asleep. When name is called, he is able to respond, answers to questions and able to make needs known. Morning RN reports improved appetite. Patient is on 02 3L NC. Noted left chest wall pace maker. Skin intact. Bed is on low and locked position. Safety initiated. Call light within reach. Will continue to monitor.
[2017-12-03 19:39] VITALS: BP 120/61
[2017-12-03] MEDS: TAMSULOSIN HCL 0.4 MG CAP.SR.24H PO SCH (20:11)
[2017-12-03] MEDS: DOCUSATE SODIUM 100 MG CAPSULE PO SCH (20:11)
[2017-12-03] MEDS: INSULIN GLARGINE,HUM 300 UNITS/3 ML CARTRIDGE SQ SCH (20:16)
[2017-12-04 04:00] VITALS: BP 117/57
[2017-12-04 04:55] VITALS: BP 117/57
--- NOTE | 2017-12-04 05:40 | NUR ---
Patient slept intermittently t/o shift. No acute distress noted. Vital signs stable. Patient remains on 02 3L NC. No c/o pain. C/o slight SOB. Meds given as ordered with no adverse effects. Urinating well. Small BM. Safety and comfort measures maintained t/o shift. All needs met. Bed alarm on t/o shift.
[2017-12-04 06:06] LABS: BASOPHILS % (AUTO) 0.3 % (0.0-2.0); EOSINOPHILS # (AUTO) 0.1 K/uL (0.0-0.7); EOSINOPHILS % (AUTO) 1.3 % (0.0-7.0); HEMATOCRIT 24.4 % (36.7-47.1); HEMOGLOBIN 8.1 g/dL (12.5-16.3); LYMPHOCYTES # (AUTO) 0.8 K/uL (20.0-40.0); LYMPHOCYTES % (AUTO) 12.4 % (20.5-51.5); MEAN CORPUSCULAR HEMOGLOBIN 29.3 uug (23.8-33.4); MEAN CORPUSCULAR HGB CONC 33 g/dL (32.5-36.3); MEAN CORPUSCULAR VOLUME 88.1 fL (73.0-96.2); MONOCYTES # (AUTO) 0.5 K/uL (2.0-10.0); MONOCYTES % (AUTO) 7.9 % (0.0-11.0); NEUTROPHILS # (AUTO) 5.2 K/uL (1.8-8.9); NEUTROPHILS % (AUTO) 78.1 % (38.5-71.5); PLATELET COUNT (AUTO) 167 K/uL (152-348); RED BLOOD CELL COUNT(AUTO) 2.77 MIL/uL (4.06-5.63); WHITE BLOOD COUNT (AUTO) 6.7 K/uL (3.6-10.2)
[2017-12-04] MEDS: PANTOPRAZOLE SODIUM 40 MG VIAL IV SCH (06:18)
[2017-12-04 06:25] LABS: CARBON DIOXIDE 22 mmol/L (21-32); CHLORIDE 103 mmol/L (98-107); CREATININE 1.1 mg/dL (0.6-1.3); GLUCOSE 158 mg/dL (74-106); MAGNESIUM 1.8 mg/dL (1.8-2.4); PHOSPHOROUS 3.4 mg/dL (2.5-4.9); UREA NITROGEN, BLOOD 23 mg/dL (7-18)
[2017-12-04] MEDS: BLOOD SUGAR DIAGNOSTIC 1 EACH STRIP VI SCH ×4 (06:40→20:27)
[2017-12-04] MEDS: FUROSEMIDE 20 MG/2 ML VIAL IV SCH ×2 (08:46→20:32)
[2017-12-04] MEDS: ASPIRIN 81 MG TAB.CHEW PO SCH (08:49)
[2017-12-04] MEDS: GLIMEPIRIDE 4 MG TABLET PO SCH (08:49)
[2017-12-04] MEDS: CARVEDILOL 12.5 MG TABLET PO SCH ×2 (08:49→20:33)
[2017-12-04] MEDS: CHOLECALCIFEROL 1,000 UNIT TABLET PO SCH (08:50)
[2017-12-04] MEDS: AMLODIPINE 5 MG TABLET PO SCH (08:50)
[2017-12-04] MEDS: ELIQUIS 2.5 MG PO SCH ×2 (08:51→15:55)
[2017-12-04] MEDS: INSULIN REGULAR, HUMAN 300 UNIT/3 ML VIAL SQ PRN ×3 (08:55→16:11)
[2017-12-04] MEDS: MEROPENEM 500 MG in IV NORMAL SALINE 50 ML IV SCH ×2 (08:57→20:39)
--- NOTE | 2017-12-04 09:00 | NUR ---
Read on Sas Architect to hold eliquis secondary to pt has plan for colonoscopy. Will clarify with Doctor.
[2017-12-04 11:04] VITALS: BP 110/56
[2017-12-04] MEDS ORDERED: MORPHINE SULFATE 4 MG/1 ML DISP.SYRIN IV PRN (11:45)
[2017-12-04] MEDS ORDERED: POTASSIUM CHLORIDE 20 MEQ POWDER PACKET PO ONE (12:30)
[2017-12-04 15:13] VITALS: BP 104/56
--- NOTE | 2017-12-04 15:53 | NUR ---
Clarified with Dr ester dc to hold eliDailyPathis.
[2017-12-04] MEDS: PANTOPRAZOLE SODIUM 40 MG TABLET.DR PO SCH (16:07)
--- NOTE | 2017-12-04 19:55 | NUR ---
OBSERVED TO BE RESTING IN BED AT THIS TIME. BED IN LOW, LOCKED POSITION. SIDE RAILS UP X 2, BED ALARM ON. CALL LIGHT WITHIN REACH. WILL CONTINUE TO MONITOR.
[2017-12-04 20:00] VITALS: BP 119/58
[2017-12-04] MEDS: DOCUSATE SODIUM 100 MG CAPSULE PO SCH (20:33)
[2017-12-04] MEDS: TAMSULOSIN HCL 0.4 MG CAP.SR.24H PO SCH (20:33)
[2017-12-04] MEDS: INSULIN GLARGINE,HUM 300 UNITS/3 ML CARTRIDGE SQ SCH (20:37)
[2017-12-04] MEDS: INSULIN REGULAR, HUMAN 300 UNITS/3 ML VIAL SQ PRN (20:38)
[2017-12-05] VITALS (10 sets, daily range): BP systolic 128–149; BP diastolic 53–67
--- NOTE | 2017-12-05 05:06 | NUR ---
URINE COLLECTED AND SENT TO LAB
[2017-12-05] MEDS: BLOOD SUGAR DIAGNOSTIC 1 EACH STRIP VI SCH ×4 (06:27→20:57)
[2017-12-05] MEDS: PANTOPRAZOLE SODIUM 40 MG TABLET.DR PO SCH ×2 (06:27→16:57)
[2017-12-05 07:20] LABS: BASOPHILS % (AUTO) 0.3 % (0.0-2.0); EOSINOPHILS # (AUTO) 0.1 K/uL (0.0-0.7); EOSINOPHILS % (AUTO) 1.6 % (0.0-7.0); HEMATOCRIT 23.8 % (36.7-47.1); HEMOGLOBIN 7.9 g/dL (12.5-16.3); LYMPHOCYTES # (AUTO) 1.1 K/uL (20.0-40.0); LYMPHOCYTES % (AUTO) 14.5 % (20.5-51.5); MEAN CORPUSCULAR HEMOGLOBIN 29.1 uug (23.8-33.4); MEAN CORPUSCULAR HGB CONC 33 g/dL (32.5-36.3); MEAN CORPUSCULAR VOLUME 87.9 fL (73.0-96.2); MONOCYTES # (AUTO) 0.6 K/uL (2.0-10.0); MONOCYTES % (AUTO) 7.8 % (0.0-11.0); NEUTROPHILS # (AUTO) 5.5 K/uL (1.8-8.9); NEUTROPHILS % (AUTO) 75.8 % (38.5-71.5); PLATELET COUNT (AUTO) 202 K/uL (152-348); WHITE BLOOD COUNT (AUTO) 7.3 K/uL (3.6-10.2)
[2017-12-05] MEDS: FUROSEMIDE 20 MG/2 ML VIAL IV SCH (08:03)
[2017-12-05] MEDS: GLIMEPIRIDE 4 MG TABLET PO SCH (08:04)
[2017-12-05 08:05] LABS: ALANINE AMINOTRANSFERASE 137 U/L (16-63); ALKALINE PHOSPHATASE 116 U/L (50-136); ASPARTATE AMINOTRANSFERASE 64 U/L (15-37); BILIRUBIN,TOTAL 0.4 mg/dL (0.2-1.0); CARBON DIOXIDE 21 mmol/L (21-32); CHLORIDE 101 mmol/L (98-107); CREATININE 1.2 mg/dL (0.6-1.3); GLUCOSE 266 mg/dL (74-106); MAGNESIUM 1.7 mg/dL (1.8-2.4); POTASSIUM 3.2 mmol/L (3.5-5.1); TOTAL PROTEIN, SERUM 6.2 g/dL (6.4-8.2); UREA NITROGEN, BLOOD 28 mg/dL (7-18)
[2017-12-05] MEDS: CHOLECALCIFEROL 1,000 UNIT TABLET PO SCH (08:05)
[2017-12-05] MEDS: ASPIRIN 81 MG TAB.CHEW PO SCH (08:05)
[2017-12-05] MEDS: ELIQUIS 2.5 MG PO SCH (08:08)
[2017-12-05 08:10] LABS: A/G RATIO 0.9 (0.7-1.7); ALBUMIN 2.8 g/dL (2.9-4.4); ALPHA-1-GLOBULIN 0.4 g/dL (0.0-0.4); ALPHA-2-GLOBULIN 1.1 g/dL (0.4-1.0); BETA GLOBULIN 0.9 g/dL (0.7-1.3); GAMMA GLOBULIN 0.7 g/dL (0.4-1.8); M-SPIKE Not Observed g/dL (Not Observed)
[2017-12-05] MEDS: INSULIN REGULAR, HUMAN 300 UNIT/3 ML VIAL SQ PRN ×3 (08:11→17:09)
[2017-12-05] MEDS: CARVEDILOL 12.5 MG TABLET PO SCH ×2 (08:11→20:58)
[2017-12-05] MEDS: AMLODIPINE 5 MG TABLET PO SCH (08:12)
[2017-12-05] MEDS ORDERED: POTASSIUM CHLORIDE 20 MEQ POWDER PACKET PO ONE (10:30)
[2017-12-05] MEDS ORDERED: POTASSIUM CHLORIDE 50 ML IV SCH (10:30)
[2017-12-05] MEDS ORDERED: FUROSEMIDE 20 MG/2 ML VIAL IV PRN (10:45)
[2017-12-05] MEDS: MEROPENEM 500 MG in IV NORMAL SALINE 50 ML IV SCH ×2 (10:48→20:57)
[2017-12-05] MEDS: MAGNESIUM SULFATE/D5W 100 ML IV SCH ×2 (10:48→12:26)
[2017-12-05] MEDS ORDERED: FLEET ENEMA 133 ML BOTTLE RC ONE (11:00)
[2017-12-05] MEDS ORDERED: MAGNESIUM CITRATE 296 ML BOTTLE PO ONE (11:00)
[2017-12-05] MEDS ORDERED: GOLYTELY 4000 ML BOTTLE PO ONE (11:00)
[2017-12-05] MEDS ORDERED: POTASSIUM CHLORIDE 20 MEQ TAB.PRT.SR PO ONE (13:00)
--- NOTE | 2017-12-05 16:00 | NUR ---
Pt started to have bowel movements. Pt tolerating transfusion. IV site intact no s/s of blood transfusion reaction.
[2017-12-05] MEDS: FUROSEMIDE 40 MG TABLET PO SCH (16:57)
--- NOTE | 2017-12-05 17:00 | NUR ---
Pt is in no acute distress. Pt tolerated blood transfusion finished. Pt SOB after blood tx - will give lasix prn iv as ordered. Pt has finished half of the go lytely and continues to have BMs. BM still not clear but tolerating prep. Call light is within reach.
--- NOTE | 2017-12-05 19:30 | NUR ---
Received patient laying comfortably in bed. Family at bedside. No acute distress noted. A&O x 3. Speaks Slovak Cypriot. Able to make needs known. Bowel prep for colonoscopy tomorrow AM. Patient is on 02 3L NC. Noted left chest wall pace maker. Skin intact. Bed is on low and locked position. Safety initiated. Call light within reach. Will continue to monitor.
[2017-12-05] MEDS: TAMSULOSIN HCL 0.4 MG CAP.SR.24H PO SCH (20:58)
[2017-12-05] MEDS: DOCUSATE SODIUM 100 MG CAPSULE PO SCH (21:00)
[2017-12-05] MEDS: INSULIN REGULAR, HUMAN 300 UNITS/3 ML VIAL SQ PRN (21:02)
[2017-12-05] MEDS: INSULIN GLARGINE,HUM 300 UNITS/3 ML CARTRIDGE SQ SCH (21:03)
[2017-12-06 05:30] VITALS: BP 135/60
--- NOTE | 2017-12-06 05:43 | NUR ---
Patient slept intermittently t/o shift. No acute distress noted. Vital signs stable. Patient remains on 02 3L NC. No c/o painor SOB. NPO maintained after midnight. BM x 6. Stool characteristics: brown with some sediments. Not clear. Will notify LIFE SUPPORT TECHNICIAN. Meds given as ordered with no adverse effects. Urinating well. Safety and comfort measures maintained t/o shift. All needs met. Bed alarm on t/o shift.
--- NOTE | 2017-12-06 05:49 | NUR ---
Left message for STRATEGY PLANNING CONSULTANT Viridiana Thompson on their exchange regarding stool characteristics. Waiting a call back.
[2017-12-06] MEDS: BLOOD SUGAR DIAGNOSTIC 1 EACH STRIP VI SCH ×4 (06:30→21:02)
[2017-12-06 06:37] LABS: BASOPHILS % (AUTO) 0.3 % (0.0-2.0); EOSINOPHILS # (AUTO) 0.2 K/uL (0.0-0.7); EOSINOPHILS % (AUTO) 2.1 % (0.0-7.0); HEMATOCRIT 29.4 % (36.7-47.1); HEMOGLOBIN 9.8 g/dL (12.5-16.3); LYMPHOCYTES # (AUTO) 1.5 K/uL (20.0-40.0); LYMPHOCYTES % (AUTO) 17.7 % (20.5-51.5); MEAN CORPUSCULAR HEMOGLOBIN 29.5 uug (23.8-33.4); MEAN CORPUSCULAR HGB CONC 33 g/dL (32.5-36.3); MEAN CORPUSCULAR VOLUME 88.5 fL (73.0-96.2); MONOCYTES # (AUTO) 0.7 K/uL (2.0-10.0); MONOCYTES % (AUTO) 8.5 % (0.0-11.0); NEUTROPHILS # (AUTO) 6.1 K/uL (1.8-8.9); NEUTROPHILS % (AUTO) 71.4 % (38.5-71.5); PLATELET COUNT (AUTO) 282 K/uL (152-348); RED BLOOD CELL COUNT(AUTO) 3.32 MIL/uL (4.06-5.63); WHITE BLOOD COUNT (AUTO) 8.6 K/uL (3.6-10.2)
--- NOTE | 2017-12-06 06:42 | NUR ---
CYNTHIA Kemp phone order another fleet enema. Will follow through and will monitor closely.
[2017-12-06] MEDS ORDERED: FLEET ENEMA 133 ML BOTTLE RC ONE (06:45)
[2017-12-06] MEDS: PANTOPRAZOLE SODIUM 40 MG TABLET.DR PO SCH ×2 (07:00→16:44)
[2017-12-06 07:05] LABS: ALANINE AMINOTRANSFERASE 126 U/L (16-63); ALKALINE PHOSPHATASE 124 U/L (50-136); ASPARTATE AMINOTRANSFERASE 50 U/L (15-37); BILIRUBIN,TOTAL 1.3 mg/dL (0.2-1.0); CARBON DIOXIDE 24 mmol/L (21-32); CHLORIDE 104 mmol/L (98-107); CREATININE 1.2 mg/dL (0.6-1.3); GLUCOSE 186 mg/dL (74-106); MAGNESIUM 2.1 mg/dL (1.8-2.4); PHOSPHOROUS 2.6 mg/dL (2.5-4.9); POTASSIUM 3.5 mmol/L (3.5-5.1); TOTAL PROTEIN, SERUM 6.9 g/dL (6.4-8.2); UREA NITROGEN, BLOOD 21 mg/dL (7-18)
--- NOTE | 2017-12-06 07:49 | NUR ---
pt picked up by gi team for colonoscopy. Pt alert x oriented x 2 but forgetful. Pt is in no acute distress. Call light is within reach.
[2017-12-06] MEDS: MEROPENEM 500 MG in IV NORMAL SALINE 50 ML IV SCH ×2 (10:36→20:57)
[2017-12-06] MEDS: FUROSEMIDE 40 MG TABLET PO SCH ×2 (10:37→16:44)
[2017-12-06] MEDS: ASPIRIN 81 MG TAB.CHEW PO SCH (10:37)
[2017-12-06] MEDS: GLIMEPIRIDE 4 MG TABLET PO SCH (10:37)
[2017-12-06] MEDS: CHOLECALCIFEROL 1,000 UNIT TABLET PO SCH (10:37)
[2017-12-06] MEDS: AMLODIPINE 5 MG TABLET PO SCH (10:38)
[2017-12-06] MEDS: CARVEDILOL 12.5 MG TABLET PO SCH ×2 (10:38→20:56)
[2017-12-06 11:43] VITALS: BP 165/76
[2017-12-06] MEDS: INSULIN REGULAR, HUMAN 300 UNIT/3 ML VIAL SQ PRN ×2 (11:50→16:47)
[2017-12-06] MEDS ORDERED: IV NORMAL SALINE 1000 ML BAG IV ONE (14:27)
[2017-12-06] MEDS ORDERED: PROPOFOL 200 MG/20 ML BOTTLE IV ONE (14:27)
--- NOTE | 2017-12-06 15:00 | NUR ---
Pt is in no acute distress. Call light is within reach.
[2017-12-06 15:47] VITALS: BP 135/59
[2017-12-06] MEDS ORDERED: POTASSIUM CHLORIDE 20 MEQ POWDER PACKET PO ONE (17:30)
[2017-12-06 20:00] VITALS: BP 140/68
--- NOTE | 2017-12-06 20:00 | NUR ---
PATIENT IS AWAKE IN BED, HE'S AAOX2 WITH FORGETFULNESS. NO C/O DIZZINESS. HE DENIES PAIN OR ANY DISTRESS ON ASSESSMENT. SAFETY MEASURES IN PLACE, CALL LIGHT WITHIN PATIENT'S REACH
[2017-12-06] MEDS: DOCUSATE SODIUM 100 MG CAPSULE PO SCH (20:55)
[2017-12-06] MEDS: TAMSULOSIN HCL 0.4 MG CAP.SR.24H PO SCH (20:58)
[2017-12-06] MEDS: INSULIN GLARGINE,HUM 300 UNITS/3 ML CARTRIDGE SQ SCH (21:04)
[2017-12-06] MEDS: INSULIN REGULAR, HUMAN 300 UNITS/3 ML VIAL SQ PRN (21:06)
[2017-12-07 04:00] VITALS: BP 147/70
--- NOTE | 2017-12-07 05:42 | NUR ---
Patient slept well through the shift, he denied pain or any distress. vss within baseline, no significant changes in status. Safety measures maintained at all times
[2017-12-07] MEDS: PANTOPRAZOLE SODIUM 40 MG TABLET.DR PO SCH ×2 (06:24→16:54)
[2017-12-07] MEDS: BLOOD SUGAR DIAGNOSTIC 1 EACH STRIP VI SCH ×4 (06:59→21:33)
--- NOTE | 2017-12-07 07:10 | NUR ---
Received pt sleeping but easily arousable with no immediate distress, discomfort, SOB or pain. Bed at lowest position for safety and call light with in reach for assistance.
[2017-12-07] MEDS: MEROPENEM 500 MG in IV NORMAL SALINE 50 ML IV SCH ×2 (08:44→21:09)
[2017-12-07] MEDS: FUROSEMIDE 40 MG TABLET PO SCH ×2 (08:44→16:54)
[2017-12-07] MEDS: CHOLECALCIFEROL 1,000 UNIT TABLET PO SCH (08:44)
[2017-12-07] MEDS: ASPIRIN 81 MG TAB.CHEW PO SCH (08:44)
[2017-12-07] MEDS: AMLODIPINE 5 MG TABLET PO SCH (08:45)
[2017-12-07] MEDS: CARVEDILOL 12.5 MG TABLET PO SCH ×2 (08:45→21:09)
[2017-12-07] MEDS: GLIMEPIRIDE 4 MG TABLET PO SCH (08:45)
[2017-12-07 11:05] LABS: BASOPHILS # (AUTO) 0.1 K/uL (0.0-8.0); BASOPHILS % (AUTO) 0.9 % (0.0-2.0); EOSINOPHILS # (AUTO) 0.1 K/uL (0.0-0.7); EOSINOPHILS % (AUTO) 1.9 % (0.0-7.0); HEMATOCRIT 25.6 % (36.7-47.1); HEMOGLOBIN 8.6 g/dL (12.5-16.3); LYMPHOCYTES # (AUTO) 1.2 K/uL (20.0-40.0); LYMPHOCYTES % (AUTO) 15.5 % (20.5-51.5); MEAN CORPUSCULAR HEMOGLOBIN 29.4 uug (23.8-33.4); MEAN CORPUSCULAR HGB CONC 34 g/dL (32.5-36.3); MEAN CORPUSCULAR VOLUME 87.9 fL (73.0-96.2); MONOCYTES # (AUTO) 0.6 K/uL (2.0-10.0); MONOCYTES % (AUTO) 8.5 % (0.0-11.0); NEUTROPHILS # (AUTO) 5.6 K/uL (1.8-8.9); NEUTROPHILS % (AUTO) 73.2 % (38.5-71.5); PLATELET COUNT (AUTO) 261 K/uL (152-348); RED BLOOD CELL COUNT(AUTO) 2.91 MIL/uL (4.06-5.63); WHITE BLOOD COUNT (AUTO) 7.6 K/uL (3.6-10.2)
[2017-12-07 11:38] VITALS: BP 138/70
[2017-12-07] MEDS: INSULIN REGULAR, HUMAN 300 UNIT/3 ML VIAL SQ PRN ×2 (12:57→16:48)
--- NOTE | 2017-12-07 12:58 | NUR ---
Pt's Accu ck for lunch is 277. Pt is NPO. Will go down for a Barium enema. Ok with NEWSPAPER JOURNALIST to give 6 units of insulin instead of 12units of Humalog
--- NOTE | 2017-12-07 14:22 | NUR ---
Pt went down for a Barium enema
--- NOTE | 2017-12-07 15:33 | NUR ---
Pt is back from procedure. Pt is under no immediate distress, discomfort, pain or SOB
[2017-12-07 15:50] VITALS: BP 112/73
--- NOTE | 2017-12-07 17:42 | NUR ---
Pt has been compliant with nursing care and medications. Pt has stated no pain throughout the day. Two daughters noted to visit pt. Pt is able to eat on his own, pt is able to communicate needs. Pt has been compliant with PT and noted to ambulate to with assistance.
[2017-12-07 19:59] VITALS: BP 131/55
--- NOTE | 2017-12-07 21:00 | NUR ---
PATIENT ALERT,COOPERATIVE ,ABLE TO MADE NEEDS KNOWN, AMBULATE WITH FWW UNSTEADY GAIT, DENIES ABDOMINAL PAIN, NO N/V NOTED.
[2017-12-07] MEDS: DOCUSATE SODIUM 100 MG CAPSULE PO SCH (21:09)
[2017-12-07] MEDS: TAMSULOSIN HCL 0.4 MG CAP.SR.24H PO SCH (21:32)
[2017-12-07] MEDS: INSULIN REGULAR, HUMAN 300 UNITS/3 ML VIAL SQ PRN (21:34)
[2017-12-07] MEDS: INSULIN GLARGINE,HUM 300 UNITS/3 ML CARTRIDGE SQ SCH (21:35)
[2017-12-08 04:00] VITALS: BP 146/73
[2017-12-08] MEDS: BLOOD SUGAR DIAGNOSTIC 1 EACH STRIP VI SCH ×2 (06:38→11:26)
[2017-12-08] MEDS: PANTOPRAZOLE SODIUM 40 MG TABLET.DR PO SCH (06:39)
--- NOTE | 2017-12-08 06:39 | NUR ---
BLOOD SUGAR =67,ORANGE JUICE 4 OZ GIVEN.
--- NOTE | 2017-12-08 08:00 | NUR ---
AWAKE ALERT AND PLEASANT, NO SS OF DISTRESS OR PAIN, AFEBRILE. CONTINUE WITH IV ANTIBIOTIC
[2017-12-08] MEDS: ASPIRIN 81 MG TAB.CHEW PO SCH (08:17)
[2017-12-08] MEDS: AMLODIPINE 5 MG TABLET PO SCH (08:17)
[2017-12-08] MEDS: CHOLECALCIFEROL 1,000 UNIT TABLET PO SCH (08:17)
[2017-12-08] MEDS: GLIMEPIRIDE 4 MG TABLET PO SCH (08:17)
[2017-12-08] MEDS: FUROSEMIDE 40 MG TABLET PO SCH (08:17)
[2017-12-08] MEDS: CARVEDILOL 12.5 MG TABLET PO SCH (08:18)
[2017-12-08] MEDS: MEROPENEM 500 MG in IV NORMAL SALINE 50 ML IV SCH (08:23)
[2017-12-08 10:01] LABS: BASOPHILS # (AUTO) 0.1 K/uL (0.0-8.0); BASOPHILS % (AUTO) 1.3 % (0.0-2.0); EOSINOPHILS # (AUTO) 0.2 K/uL (0.0-0.7); EOSINOPHILS % (AUTO) 2.4 % (0.0-7.0); HEMATOCRIT 27.9 % (36.7-47.1); HEMOGLOBIN 9.3 g/dL (12.5-16.3); LYMPHOCYTES # (AUTO) 1.4 K/uL (20.0-40.0); LYMPHOCYTES % (AUTO) 17.9 % (20.5-51.5); MEAN CORPUSCULAR HGB CONC 33 g/dL (32.5-36.3); MEAN CORPUSCULAR VOLUME 87.3 fL (73.0-96.2); MONOCYTES # (AUTO) 0.7 K/uL (2.0-10.0); MONOCYTES % (AUTO) 8.6 % (0.0-11.0); NEUTROPHILS # (AUTO) 5.4 K/uL (1.8-8.9); NEUTROPHILS % (AUTO) 69.8 % (38.5-71.5); PLATELET COUNT (AUTO) 269 K/uL (152-348); RED BLOOD CELL COUNT(AUTO) 3.19 MIL/uL (4.06-5.63); WHITE BLOOD COUNT (AUTO) 7.7 K/uL (3.6-10.2)
[2017-12-08 11:13] VITALS: BP 138/68
[2017-12-08] MEDS: INSULIN REGULAR, HUMAN 300 UNIT/3 ML VIAL SQ PRN (11:29)
--- NOTE | 2017-12-08 12:00 | NUR ---
SEEN BY HOSPITALIST WITH DC ORDER FOR IV ANTIBIOTIC WITH HOME HEALTH FOLLOW-UP, RECRUITING ADMINISTRATOR NOTIFIED SO WITH PATIENT AND DAUGHTER
[2017-12-08] MEDS ORDERED: CARV12.52 PO (12:41)
[2017-12-08] MEDS ORDERED: ERTA1VIA2 IV (12:41)
--- NOTE | 2017-12-08 14:10 | NUR ---
DISCHARGED HOME STABLE ACCOMPANIED BY DAUGHTER
[2017-12-08] MEDS ORDERED: MEROPENEM 0.5 G in IV NORMAL SALINE 50 ML IV SCH (18:00)
== END 2017-12-08 14:15 | disposition home health service (06) | DRG 871 ==
LOC: ER 17:43 → TELE 20:36 → MED 12-01 17:30
PROVIDERS: ADMIT Internal Medicine; ATTEND Internal Medicine
PROC: 0DB78ZX Excision of Stomach, Pylorus, Via Natural or Artificial Opening Endoscopic, Diagnostic (ICD-10-PCS; 2017-12-02)
PROC: 0D9670Z Drainage of Stomach with Drainage Device, Via Natural or Artificial Opening (ICD-10-PCS; 2017-12-02)
PROC: 05H533Z Insertion of Infusion Device into Right Subclavian Vein, Percutaneous Approach (ICD-10-PCS; principal; 2017-12-05)
PROC: 30233N1 Transfusion of Nonautologous Red Blood Cells into Peripheral Vein, Percutaneous Approach (ICD-10-PCS; 2017-12-05)
PROC: 0DBP8ZX Excision of Rectum, Via Natural or Artificial Opening Endoscopic, Diagnostic (ICD-10-PCS; 2017-12-06)
PROC: 0DBL8ZX Excision of Transverse Colon, Via Natural or Artificial Opening Endoscopic, Diagnostic (ICD-10-PCS; 2017-12-06)
PROC: 0DBN8ZX Excision of Sigmoid Colon, Via Natural or Artificial Opening Endoscopic, Diagnostic (ICD-10-PCS; 2017-12-06)
DX: A41.51 Sepsis due to Escherichia coli [E. coli] (principal); G93.41 Metabolic encephalopathy; N17.0 Acute kidney failure with tubular necrosis; J96.01 Acute respiratory failure with hypoxia; I50.33 Acute on chronic diastolic (congestive) heart failure; E44.0 Moderate protein-calorie malnutrition; I48.0 Paroxysmal atrial fibrillation; D69.6 Thrombocytopenia, unspecified; K92.2 Gastrointestinal hemorrhage, unspecified; D62 Acute posthemorrhagic anemia; Q43.3 Congenital malformations of intestinal fixation; I13.0 Hypertensive heart and chronic kidney disease with heart failure and stage 1 through stage 4 chronic kidney disease, or unspecified chronic kidney disease; N39.0 Urinary tract infection, site not specified; R17 Unspecified jaundice; I45.2 Bifascicular block; E11.22 Type 2 diabetes mellitus with diabetic chronic kidney disease; E86.0 Dehydration; E11.65 Type 2 diabetes mellitus with hyperglycemia; E11.42 Type 2 diabetes mellitus with diabetic polyneuropathy; R65.20 Severe sepsis without septic shock; K29.70 Gastritis, unspecified, without bleeding; Z79.01 Long term (current) use of anticoagulants; Z79.02 Long term (current) use of antithrombotics/antiplatelets; Z79.84 Long term (current) use of oral hypoglycemic drugs; K44.9 Diaphragmatic hernia without obstruction or gangrene; K64.1 Second degree hemorrhoids; N18.9 Chronic kidney disease, unspecified; I25.2 Old myocardial infarction; G89.29 Other chronic pain; Z16.12 Extended spectrum beta lactamase (ESBL) resistance; I35.0 Nonrheumatic aortic (valve) stenosis; I27.20 Pulmonary hypertension, unspecified; M81.0 Age-related osteoporosis without current pathological fracture; E78.5 Hyperlipidemia, unspecified; I25.10 Atherosclerotic heart disease of native coronary artery without angina pectoris; Z98.61 Coronary angioplasty status; Z95.1 Presence of aortocoronary bypass graft; Z95.0 Presence of cardiac pacemaker; Z68.28 Body mass index [BMI] 28.0-28.9, adult; Z86.73 Personal history of transient ischemic attack (TIA), and cerebral infarction without residual deficits; N40.0 Benign prostatic hyperplasia without lower urinary tract symptoms; Z79.82 Long term (current) use of aspirin; Z99.81 Dependence on supplemental oxygen; E66.9 Obesity, unspecified; E11.51 Type 2 diabetes mellitus with diabetic peripheral angiopathy without gangrene; D12.3 Benign neoplasm of transverse colon; K62.1 Rectal polyp; M19.90 Unspecified osteoarthritis, unspecified site; D12.5 Benign neoplasm of sigmoid colon; Z79.899 Other long term (current) drug therapy
CPT/HCPCS: 36415; 36569; 43235; 70030-TC; 70450; 71045; 82306; 82378; 83520; 83550; 83735; 83970; 84100; 84153; 84155; 84165; 84443; 84550; 85025; 85610; 85651; 85730; 86140; 86256; 86850; 86900; 86901; 86920; 87040; 87077; 87086; 88342; 93005; 97116; 97530; A4217; A4663; C9113; J0696; J1815; J1940; J2185; J2270; J3475; J3480; J3490; J7030; J7040; J7050; J7060; P9016-BL; P9021; Q9951; Q9965; Q9967

== ENCOUNTER 2018-05-29 19:32 | Inpatient (IN) | payer MEDICARE, OTHER ==
[~2018-05-29] VITALS: Ht 177.8 cm; Wt 87.1 kg
[~2018-05-29 19:32] MED LIST changes: +AMLO5TAB7 PO; +ASPI81TA31 PO; -ATOR40TA PO; +CARV12.52 PO; -CARV25TA2 PO; +ERTA1VIA2 IV; +GUAI118S10 PO; -HYDR-4076 PO; +LOSA25TA13 PO; -POTA10CA43 PO; -PREG75CA PO; +SILD50TA PO; +VALS80TA2 PO; -VERA240C2 PO
[2018-05-29] MEDS ORDERED: IV NORMAL SALINE 1000 ML BAG IV ONE ×2 (19:45→20:00)
--- NOTE | 2018-05-29 19:48 | NUR ---
TELESTROKE WAS CALLED DR ONEIL LIVE STUDY MANAGER.
[2018-05-29 19:59] LABS: BASOPHILS % (AUTO) 0.1 % (0.0-2.0); EOSINOPHILS % (AUTO) 0.3 % (0.0-7.0); HEMATOCRIT 26.2 % (36.7-47.1); HEMOGLOBIN 8.8 g/dL (12.5-16.3); LYMPHOCYTES # (AUTO) 0.7 K/uL (20.0-40.0); LYMPHOCYTES % (AUTO) 6.7 % (20.5-51.5); MEAN CORPUSCULAR HEMOGLOBIN 29.8 uug (23.8-33.4); MEAN CORPUSCULAR HGB CONC 34 g/dL (32.5-36.3); MEAN CORPUSCULAR VOLUME 88.4 fL (73.0-96.2); MONOCYTES # (AUTO) 0.5 K/uL (2.0-10.0); MONOCYTES % (AUTO) 5.1 % (0.0-11.0); NEUTROPHILS # (AUTO) 9.2 K/uL (1.8-8.9); NEUTROPHILS % (AUTO) 87.8 % (38.5-71.5); PLATELET COUNT (AUTO) 193 K/uL (152-348); RED BLOOD CELL COUNT(AUTO) 2.96 MIL/uL (4.06-5.63); WHITE BLOOD COUNT (AUTO) 10.5 K/uL (3.6-10.2)
[2018-05-29] MEDS ORDERED: GENTAMICIN SULFATE INJ 80 MG in IV DEXTROSE 5% 100 ML IV ONE (20:00)
[2018-05-29] MEDS ORDERED: CEFEPIME HCL 1 G in IV DEXTROSE 5% 50 ML IV ONE (20:00)
[2018-05-29] MEDS ORDERED: IMIPENEM/CILASTATIN SODIUM 1,000 MG in IV NORMAL SALINE 250 ML IV ONE (20:00)
[2018-05-29 20:08] LABS: ALANINE AMINOTRANSFERASE 26 U/L (16-63); ALKALINE PHOSPHATASE 77 U/L (50-136); ASPARTATE AMINOTRANSFERASE 15 U/L (15-37); BILIRUBIN,DIRECT 0.3 mg/dL (0.0-0.2); BILIRUBIN,TOTAL 0.9 mg/dL (0.2-1.0); CARBON DIOXIDE 25 mmol/L (21-32); CHLORIDE 98 mmol/L (98-107); CHOLESTEROL 103 mg/dL (<200); CREATININE 1.4 mg/dL (0.6-1.3); HDL CHOLESTEROL 21 mg/dL (40-60); POTASSIUM 3.9 mmol/L (3.5-5.1); TOTAL PROTEIN, SERUM 7.6 g/dL (6.4-8.2); TRIGLYCERIDES 139 MG/DL (30-150); UREA NITROGEN, BLOOD 25 mg/dL (7-18)
[2018-05-29 20:10] LABS: GLUCOSE 414 mg/dL (74-106)
[2018-05-29] MEDS ORDERED: GENTAMICIN SULFATE 80 MG/2 ML VIAL ONE (20:47)
[2018-05-29] MEDS ORDERED: INSULIN REGULAR, HUMAN 1,000 UNITS/10 ML VIAL SUBCUT ONE (21:00)
[2018-05-29] MEDS ORDERED: PREG75CA PO (21:04)
[2018-05-29] MEDS ORDERED: CARV25TA2 PO (21:04)
[2018-05-29] MEDS ORDERED: PANT40TA4 PO (21:04)
[2018-05-29] MEDS ORDERED: TAMS0.4C34 PO (21:04)
[2018-05-29] MEDS ORDERED: POTA10TA15 PO (21:04)
[2018-05-29] MEDS ORDERED: INSULIN REGULAR, HUMAN 300 UNIT/3 ML VIAL ONE (21:05)
[2018-05-29] MEDS ORDERED: MAGNESIUM HYDROXIDE 30 ML LIQUID UDC PO PRN (21:30)
[2018-05-29] MEDS ORDERED: ONDANSETRON 4 MG/2 ML VIAL IV PRN (21:30)
[2018-05-29] MEDS ORDERED: HYDROCODONE/APAP 5-325MG TABLET PO PRN (21:30)
[2018-05-29 21:32] LABS: *BILIRUBIN,URIN NEGATIVE (NEGATIVE); *BLOOD, URINE Trace-intact (NEGATIVE); *CLARITY,URINE SLIGHTLY CLOUDY (CLEAR); *COLOR,URINE YELLOW (YELLOW); *KETONES,URINE TRACE (NEGATIVE); *PROTEIN,URINE TRACE (NEGATIVE); *UROBILINOGEN,URINE 0.2 E.U./dl (NORMAL); LEUKOCYTE ESTERASE ,URINE 2+ (NEGATIVE); NITRITE, URINE NEGATIVE (NEGATIVE); PH,URINE 5.5 (5.0-8.0)
[2018-05-29 21:34] LABS: UGLUCOSE 3+ (NEGATIVE)
[2018-05-29 21:50] LABS: BACTERIA,URINE MA /HPF (NONE SEEN); SQUAMOUS EPITHELIAL CELL,UR FEW /HPF (NONE SEEN)
--- NOTE | 2018-05-29 22:04 | NUR ---
Pt. admitted to Telemetry , under care of Dr. Bueno. Diagnosis: UTI Belongs List completed. MRSA swab done. Report given to Antoinette MEJIA.
--- NOTE | 2018-05-29 23:00 | NUR ---
Received pt in telemetry unit under care of Dr. Bueno. Family and patient oriented to room and made aware of plan of care. Pt in no acute distress noted at this time. Tele noted to be v-pacing with HR at 73. Pertinent assessments done. Pt placed on 2L O2 via NC and SpO2 at 90-93%. Safe environment implemented. Call light within reach.
[2018-05-29 23:09] VITALS: BP 117/72
[2018-05-29] MEDS ORDERED: DEXTROSE 50% 50 ML DISP.SYRIN IV PRN (23:30)
[2018-05-30] MEDS ORDERED: FUROSEMIDE 40 MG/4 ML VIAL IV ONE
[2018-05-30 00:10] VITALS: BP 158/66
--- NOTE | 2018-05-30 03:50 | NUR ---
Pt observed to be mouth breathing with SOB, saturation 88%-90% with 2L O2 NC. Pt placed on simple mask with O2 delivery of 8L and saturation noted to be 95% at this time. HOB up.
[2018-05-30 04:00] VITALS: BP 157/59
[2018-05-30] MEDS: ACETAMINOPHEN 325 MG TABLET PO PRN (04:09)
[2018-05-30] MEDS: PANTOPRAZOLE SODIUM 40 MG TABLET.DR PO SCH (06:26)
[2018-05-30] MEDS: BLOOD SUGAR DIAGNOSTIC 1 EACH STRIP VI SCH ×4 (06:30→21:20)
[2018-05-30] MEDS: INSULIN REGULAR, HUMAN 300 UNIT/3 ML VIAL SQ PRN ×3 (06:34→16:43)
--- NOTE | 2018-05-30 06:49 | NUR ---
Kept clean and dry. No s/s of respiratory distress noted at this time. Blood sugar noted to be 375 this morning, regular insulin coverage provided per sliding scale. Safe environment implemented. Call light within reach.
[2018-05-30 07:37] LABS: CARBON DIOXIDE 20 mmol/L (21-32); CHLORIDE 101 mmol/L (98-107); CREATININE 1.3 mg/dL (0.6-1.3); PHOSPHOROUS 3.4 mg/dL (2.5-4.9); POTASSIUM 3.7 mmol/L (3.5-5.1); UREA NITROGEN, BLOOD 22 mg/dL (7-18)
[2018-05-30 07:46] LABS: MAGNESIUM 1.2 mg/dL (1.8-2.4)
[2018-05-30 07:48] LABS: GLUCOSE 382 mg/dL (74-106)
[2018-05-30 07:50] LABS: BASOPHILS % (AUTO) 0.1 % (0.0-2.0); HEMATOCRIT 24.2 % (36.7-47.1); HEMOGLOBIN 8.1 g/dL (12.5-16.3); LYMPHOCYTES # (AUTO) 0.8 K/uL (20.0-40.0); LYMPHOCYTES % (AUTO) 5.8 % (20.5-51.5); MEAN CORPUSCULAR HEMOGLOBIN 29.5 uug (23.8-33.4); MEAN CORPUSCULAR HGB CONC 33 g/dL (32.5-36.3); MEAN CORPUSCULAR VOLUME 88.2 fL (73.0-96.2); MONOCYTES # (AUTO) 0.7 K/uL (2.0-10.0); MONOCYTES % (AUTO) 5.2 % (0.0-11.0); NEUTROPHILS # (AUTO) 11.7 K/uL (1.8-8.9); NEUTROPHILS % (AUTO) 88.9 % (38.5-71.5); PLATELET COUNT (AUTO) 169 K/uL (152-348); RED BLOOD CELL COUNT(AUTO) 2.74 MIL/uL (4.06-5.63)
[2018-05-30 07:59] LABS: WHITE BLOOD COUNT (AUTO) 13.2 K/uL (3.6-10.2)
--- NOTE | 2018-05-30 08:00 | NUR ---
RECEIVED A 82 Y/O FEMALE PT A CASE OF ASPIRATION PNEUMONIA, ON TELE MONITOR Noted to be v-pacing with HR at 75. Pt ALERT THOUGH CONFUSED placed on 2L O2 via NC, and SpO2 at 90-93%. HAS A NGT, AND A RT FOREARM IV LINE G22. Safe environment implemented. Call light within reach.
[2018-05-30] MEDS: LINAGLIPTIN 5 MG TABLET PO SCH (08:39)
[2018-05-30] MEDS: AMLODIPINE 5 MG TABLET PO SCH ×2 (08:39→20:30)
[2018-05-30] MEDS: METFORMIN HCL 500 MG TABLET PO SCH ×2 (08:40→17:48)
[2018-05-30] MEDS: CARVEDILOL 25 MG TABLET PO SCH ×2 (08:40→17:50)
[2018-05-30] MEDS: PREGABALIN 25 MG CAPSULE PO SCH ×2 (08:40→20:30)
[2018-05-30] MEDS: POTASSIUM CHLORIDE 10 MEQ TAB.PRT.SR PO SCH (08:40)
[2018-05-30] MEDS: GLIMEPIRIDE 4 MG TABLET PO SCH (08:41)
[2018-05-30] MEDS ORDERED: Medication Not On Formulary EA (Pregabalin (Lyrica) 75 MG) PO SCH (09:00)
[2018-05-30] MEDS ORDERED: Medication Not On Formulary EA (Linagliptin/Metformin HCl (Jentadueto Xr 2.5 mg-1,000 mg PO SCH (09:00)
[2018-05-30] MEDS ORDERED: LOSARTAN POTASSIUM 25 MG TABLET PO SCH (09:00)
[2018-05-30] MEDS ORDERED: FUROSEMIDE 40 MG TABLET PO SCH (09:00)
[2018-05-30] MEDS ORDERED: ASPIRIN 81 MG TAB.CHEW PO SCH (09:00)
[2018-05-30] MEDS ORDERED: Medication Not On Formulary EA (Apixaban (Eliquis) 2.5 MG) PO SCH (09:00)
[2018-05-30] MEDS: MAGNESIUM SULFATE/D5W 100 ML IV SCH ×3 (10:52→14:02)
[2018-05-30 11:09] LABS: IRON, SERUM 10 ug/dL (50-175)
[2018-05-30 11:22] VITALS: BP 103/57
[2018-05-30] MEDS: CEFTRIAXONE 1 G in IV DEXTROSE 5% 50 ML IV SCH (11:45)
[2018-05-30 15:02] VITALS: BP 104/59
[2018-05-30] MEDS: SOD FERRIC GLUC COMPLX/SUCROSE 125 MG in IV NORMAL SALINE 100 ML IV SCH (15:05)
[2018-05-30] MEDS: APIXABAN 5 MG PO SCH (17:48)
[2018-05-30 20:16] VITALS: BP 129/66
[2018-05-30] MEDS: TAMSULOSIN HCL 0.4 MG CAP.SR.24H PO SCH (20:30)
[2018-05-30] MEDS: INSULIN REGULAR, HUMAN 300 UNITS/3 ML VIAL SQ PRN (21:22)
[2018-05-31] VITALS (11 sets, daily range): BP systolic 109–127; BP diastolic 54–65
[2018-05-31] MEDS: PANTOPRAZOLE SODIUM 40 MG TABLET.DR PO SCH (06:26)
[2018-05-31] MEDS: BLOOD SUGAR DIAGNOSTIC 1 EACH STRIP VI SCH ×4 (06:27→20:37)
[2018-05-31 07:10] LABS: BASOPHILS % (AUTO) 0.2 % (0.0-2.0); EOSINOPHILS # (AUTO) 0.1 K/uL (0.0-0.7); EOSINOPHILS % (AUTO) 1.8 % (0.0-7.0); HEMATOCRIT 22.6 % (36.7-47.1); HEMOGLOBIN 7.7 g/dL (12.5-16.3); MEAN CORPUSCULAR HEMOGLOBIN 29.5 uug (23.8-33.4); MEAN CORPUSCULAR HGB CONC 34 g/dL (32.5-36.3); MEAN CORPUSCULAR VOLUME 87.1 fL (73.0-96.2); MONOCYTES # (AUTO) 0.5 K/uL (2.0-10.0); MONOCYTES % (AUTO) 6.2 % (0.0-11.0); NEUTROPHILS # (AUTO) 5.8 K/uL (1.8-8.9); NEUTROPHILS % (AUTO) 77.8 % (38.5-71.5); PLATELET COUNT (AUTO) 174 K/uL (152-348); WHITE BLOOD COUNT (AUTO) 7.4 K/uL (3.6-10.2)
[2018-05-31 07:12] LABS: ALANINE AMINOTRANSFERASE 29 U/L (16-63); ALKALINE PHOSPHATASE 62 U/L (50-136); ASPARTATE AMINOTRANSFERASE 26 U/L (15-37); BILIRUBIN,TOTAL 0.8 mg/dL (0.2-1.0); CARBON DIOXIDE 27 mmol/L (21-32); CHLORIDE 106 mmol/L (98-107); CREATININE 1.2 mg/dL (0.6-1.3); GLUCOSE 71 mg/dL (74-106); PHOSPHOROUS 3.5 mg/dL (2.5-4.9); POTASSIUM 3.4 mmol/L (3.5-5.1); TOTAL PROTEIN, SERUM 6.5 g/dL (6.4-8.2); UREA NITROGEN, BLOOD 27 mg/dL (7-18)
[2018-05-31] MEDS: GLIMEPIRIDE 4 MG TABLET PO SCH (08:21)
[2018-05-31] MEDS: ASPIRIN EC 81 MG TABLET.DR PO SCH (08:21)
[2018-05-31] MEDS: METFORMIN HCL 500 MG TABLET PO SCH ×2 (08:22→17:04)
[2018-05-31] MEDS: LINAGLIPTIN 5 MG TABLET PO SCH (08:22)
[2018-05-31] MEDS: POTASSIUM CHLORIDE 10 MEQ TAB.PRT.SR PO SCH (08:22)
[2018-05-31] MEDS: APIXABAN 5 MG PO SCH ×2 (08:22→17:04)
[2018-05-31] MEDS: Z GUARD REMEDY PASTE 57 GM TUBE TOP PRN (08:23)
[2018-05-31] MEDS: FUROSEMIDE 20 MG/2 ML VIAL IV SCH (08:23)
[2018-05-31] MEDS: CARVEDILOL 25 MG TABLET PO SCH ×2 (08:25→17:04)
[2018-05-31] MEDS: PREGABALIN 25 MG CAPSULE PO SCH ×2 (09:39→20:29)
[2018-05-31] MEDS: AMLODIPINE 5 MG TABLET PO SCH ×3 (09:39→20:41)
[2018-05-31] MEDS: CEFTRIAXONE 1 G in IV DEXTROSE 5% 50 ML IV SCH (10:27)
[2018-05-31] MEDS: INSULIN REGULAR, HUMAN 300 UNIT/3 ML VIAL SQ PRN ×2 (12:06→17:05)
[2018-05-31] MEDS: SOD FERRIC GLUC COMPLX/SUCROSE 125 MG in IV NORMAL SALINE 100 ML IV SCH (13:41)
[2018-05-31] MEDS ORDERED: POTASSIUM CHLORIDE 20 MEQ TAB.PRT.SR PO ONE (14:45)
--- NOTE | 2018-05-31 16:00 | NUR ---
CONSENT FOR BLOOD TRANSFUSION SIGNED BY PATIENT. FAMILY AT BEDSIDE.
--- NOTE | 2018-05-31 17:50 | NUR ---
BLOOD TRANSFUSION STARTED PER MD'S ORDER. FOLLOWED PROTOCOL, VERIFIED BY ANOTHER LICENSED RN. PATIENT IS ALERT, IN NO DISTRESS, NO CP, NO SOB, VS STABLE, AFEBRILE. WILL CONTINUE TO MONITOR.
--- NOTE | 2018-05-31 18:13 | NUR ---
BLOOD TRANSFUSING, PATIENT ALERT, NO ADVERSE REACTION NOTED. WILL CONTINUE TO MONITOR AND FOLLOW PROTOCOL. SAFETY MEASURES IN PLACE.
--- NOTE | 2018-05-31 19:20 | NUR ---
Received patient lying in bed. AAOX4.In no acute distress. O2 at3LPM via NC in place. O2 sat at 95%. Complained of mild pain on right chest area. Will give Tylenol PRN per order. Denies any SOB. IV site on left hand intact and patent. Blood transfusion on going. No adverse effect noted at this time. Isolation precauition observed. Safety measure initiated and call hernandez within reach. Safety measure initiated and call hernandez within reach.
[2018-05-31] MEDS: TAMSULOSIN HCL 0.4 MG CAP.SR.24H PO SCH (20:29)
[2018-05-31] MEDS: ACETAMINOPHEN 325 MG TABLET PO PRN (20:41)
[2018-05-31] MEDS: INSULIN REGULAR, HUMAN 300 UNITS/3 ML VIAL SQ PRN (20:43)
[2018-05-31 20:45] LABS: *OCCULT BLOOD STOOL NEGATIVE (NEGATIVE)
[2018-05-31] MEDS: MEROPENEM 500 MG in IV NORMAL SALINE 50 ML IV SCH (21:11)
--- NOTE | 2018-05-31 21:15 | NUR ---
Blood transfusion ended, no adverse reaction noted. VS WNL.
[2018-06-01 05:06] VITALS: BP 119/67
--- NOTE | 2018-06-01 06:04 | NUR ---
AOX4. In no acute distress. Slept well last night. O2 at 3LPM via NC in place. O2 sat at 92%. No further complain of pain. IV site on left hand remains intact and patent. No adverse effect noted from IV ABX. Isolation precaution observed. Needs attended to and met. Safety measure maintained and call hernandez within reach.
[2018-06-01] MEDS: BLOOD SUGAR DIAGNOSTIC 1 EACH STRIP VI SCH ×4 (06:31→20:32)
[2018-06-01] MEDS: PANTOPRAZOLE SODIUM 40 MG TABLET.DR PO SCH (06:31)
[2018-06-01 06:46] LABS: BASOPHILS % (AUTO) 0.3 % (0.0-2.0); EOSINOPHILS # (AUTO) 0.2 K/uL (0.0-0.7); EOSINOPHILS % (AUTO) 3.3 % (0.0-7.0); HEMATOCRIT 26.9 % (36.7-47.1); HEMOGLOBIN 9.1 g/dL (12.5-16.3); MEAN CORPUSCULAR HEMOGLOBIN 29.4 uug (23.8-33.4); MEAN CORPUSCULAR HGB CONC 34 g/dL (32.5-36.3); MEAN CORPUSCULAR VOLUME 86.8 fL (73.0-96.2); MONOCYTES # (AUTO) 0.5 K/uL (2.0-10.0); MONOCYTES % (AUTO) 7.3 % (0.0-11.0); NEUTROPHILS % (AUTO) 74.1 % (38.5-71.5); PLATELET COUNT (AUTO) 197 K/uL (152-348); WHITE BLOOD COUNT (AUTO) 6.7 K/uL (3.6-10.2)
[2018-06-01 07:01] LABS: CARBON DIOXIDE 27 mmol/L (21-32); CHLORIDE 104 mmol/L (98-107); CREATININE 1.1 mg/dL (0.6-1.3); GLUCOSE 83 mg/dL (74-106); MAGNESIUM 1.9 mg/dL (1.8-2.4); PHOSPHOROUS 3.4 mg/dL (2.5-4.9); POTASSIUM 3.6 mmol/L (3.5-5.1); UREA NITROGEN, BLOOD 27 mg/dL (7-18)
[2018-06-01] MEDS: GLIMEPIRIDE 4 MG TABLET PO SCH (07:58)
[2018-06-01] MEDS: CARVEDILOL 25 MG TABLET PO SCH ×2 (07:58→17:14)
[2018-06-01] MEDS: APIXABAN 5 MG PO SCH ×2 (08:03→17:10)
[2018-06-01] MEDS: LINAGLIPTIN 5 MG TABLET PO SCH (08:03)
[2018-06-01] MEDS: FUROSEMIDE 20 MG/2 ML VIAL IV SCH (08:03)
[2018-06-01] MEDS: ASPIRIN EC 81 MG TABLET.DR PO SCH (08:03)
[2018-06-01] MEDS: METFORMIN HCL 500 MG TABLET PO SCH ×2 (08:03→17:11)
[2018-06-01] MEDS: POTASSIUM CHLORIDE 10 MEQ TAB.PRT.SR PO SCH (08:03)
[2018-06-01] MEDS: PREGABALIN 25 MG CAPSULE PO SCH ×2 (08:03→20:30)
[2018-06-01] MEDS: Z GUARD REMEDY PASTE 57 GM TUBE TOP PRN (08:04)
[2018-06-01] MEDS: MEROPENEM 500 MG in IV NORMAL SALINE 50 ML IV SCH (08:05)
[2018-06-01] MEDS: AMLODIPINE 5 MG TABLET PO SCH ×2 (09:11→20:32)
[2018-06-01 11:28] VITALS: BP 129/61
[2018-06-01] MEDS: INSULIN REGULAR, HUMAN 300 UNIT/3 ML VIAL SQ PRN ×2 (12:04→17:13)
[2018-06-01] MEDS: MEROPENEM 0.5 G in IV NORMAL SALINE 50 ML IV SCH ×2 (14:42→21:49)
--- NOTE | 2018-06-01 16:00 | NUR ---
SEEN BY MD, FAMILY AT BEDSIDE.
[2018-06-01 16:06] VITALS: BP 138/70
--- NOTE | 2018-06-01 18:18 | NUR ---
PATIENT ALERT, IN NO DISTRESS. IV ANTIBIOTICS ADMINISTERED ORDERED, NO ADVERSE REACTION NOTED. ACCUCHECKS DONE ORDERED, NO S/S OF HYPO/HYPERGLYCEMIA NOTED. VS STABLE, AFEBRILE. ASSISTED PATIENT WITH TOILETING NEEDS. SAFETY MEASURES IN PLACE.
[2018-06-01 20:00] VITALS: BP 135/69
--- NOTE | 2018-06-01 20:00 | NUR ---
RECEIVED PATIENT AWAKE IN BED. A/O X4. DENIES PAIN OR DISCOMFORT. NO RESP. DISTRESS NOTED. H/L INTACT AND PATENT. VSS. CALL LIGHT IN REACH. ALL NEEDS ATTENDED, WILL CONTINUE TO MONITOR AND ASSESS.
[2018-06-01] MEDS: TAMSULOSIN HCL 0.4 MG CAP.SR.24H PO SCH (20:30)
[2018-06-01] MEDS: INSULIN REGULAR, HUMAN 300 UNITS/3 ML VIAL SQ PRN (20:33)
[2018-06-02] MEDS: MEROPENEM 0.5 G in IV NORMAL SALINE 50 ML IV SCH ×2 (05:29→13:39)
[2018-06-02 05:43] LABS: BASOPHILS % (AUTO) 0.2 % (0.0-2.0); EOSINOPHILS # (AUTO) 0.2 K/uL (0.0-0.7); EOSINOPHILS % (AUTO) 2.6 % (0.0-7.0); HEMATOCRIT 25.8 % (36.7-47.1); HEMOGLOBIN 8.7 g/dL (12.5-16.3); LYMPHOCYTES # (AUTO) 1.1 K/uL (20.0-40.0); LYMPHOCYTES % (AUTO) 13.6 % (20.5-51.5); MEAN CORPUSCULAR HEMOGLOBIN 28.9 uug (23.8-33.4); MEAN CORPUSCULAR HGB CONC 34 g/dL (32.5-36.3); MEAN CORPUSCULAR VOLUME 85.7 fL (73.0-96.2); MONOCYTES # (AUTO) 0.5 K/uL (2.0-10.0); MONOCYTES % (AUTO) 5.7 % (0.0-11.0); NEUTROPHILS # (AUTO) 6.4 K/uL (1.8-8.9); NEUTROPHILS % (AUTO) 77.9 % (38.5-71.5); PLATELET COUNT (AUTO) 199 K/uL (152-348); RED BLOOD CELL COUNT(AUTO) 3.02 MIL/uL (4.06-5.63); WHITE BLOOD COUNT (AUTO) 8.3 K/uL (3.6-10.2)
[2018-06-02 06:04] LABS: ALANINE AMINOTRANSFERASE 35 U/L (16-63); ALKALINE PHOSPHATASE 73 U/L (50-136); ASPARTATE AMINOTRANSFERASE 19 U/L (15-37); BILIRUBIN,TOTAL 0.7 mg/dL (0.2-1.0); CARBON DIOXIDE 26 mmol/L (21-32); CHLORIDE 106 mmol/L (98-107); CREATININE 1.2 mg/dL (0.6-1.3); GLUCOSE 85 mg/dL (74-106); MAGNESIUM 1.7 mg/dL (1.8-2.4); PHOSPHOROUS 3.5 mg/dL (2.5-4.9); POTASSIUM 3.8 mmol/L (3.5-5.1); TOTAL PROTEIN, SERUM 6.5 g/dL (6.4-8.2); UREA NITROGEN, BLOOD 25 mg/dL (7-18)
[2018-06-02 06:05] VITALS: BP 139/70
[2018-06-02] MEDS: PANTOPRAZOLE SODIUM 40 MG TABLET.DR PO SCH (06:33)
[2018-06-02] MEDS: BLOOD SUGAR DIAGNOSTIC 1 EACH STRIP VI SCH ×3 (06:33→16:07)
[2018-06-02] MEDS: GLIMEPIRIDE 4 MG TABLET PO SCH (07:51)
[2018-06-02] MEDS: METFORMIN HCL 500 MG TABLET PO SCH ×2 (07:52→17:45)
[2018-06-02] MEDS: CARVEDILOL 25 MG TABLET PO SCH (07:52)
[2018-06-02] MEDS: AMLODIPINE 5 MG TABLET PO SCH (08:00)
[2018-06-02] MEDS: POTASSIUM CHLORIDE 10 MEQ TAB.PRT.SR PO SCH (08:00)
[2018-06-02] MEDS: LINAGLIPTIN 5 MG TABLET PO SCH (08:00)
[2018-06-02] MEDS: ASPIRIN EC 81 MG TABLET.DR PO SCH (08:00)
[2018-06-02] MEDS: APIXABAN 5 MG PO SCH ×2 (08:00→16:47)
[2018-06-02] MEDS: FUROSEMIDE 20 MG/2 ML VIAL IV SCH (08:17)
[2018-06-02] MEDS ORDERED: MAGNESIUM OXIDE 400 MG TABLET PO ONE (09:04)
[2018-06-02] MEDS ORDERED: POTASSIUM CHLORIDE 10 MEQ TAB.PRT.SR PO ONE (09:05)
[2018-06-02] MEDS: PREGABALIN 25 MG CAPSULE PO SCH (09:15)
[2018-06-02] MEDS: INSULIN REGULAR, HUMAN 300 UNIT/3 ML VIAL SQ PRN ×2 (10:59→16:17)
[2018-06-02 11:46] VITALS: BP 136/73
[2018-06-02 15:48] VITALS: BP 101/65
[2018-06-02] MEDS ORDERED: TAMS-3 PO (17:30)
[2018-06-02] MEDS ORDERED: MERO500V IV (17:30)
[2018-06-02] MEDS ORDERED: METF-440 PO (17:30)
[2018-06-02] MEDS ORDERED: ASPI-618 PO (17:30)
[2018-06-02] MEDS ORDERED: AMLO5TAB7 PO (17:30)
[2018-06-02] MEDS ORDERED: MENT71OI TOP (17:30)
[2018-06-02] MEDS ORDERED: ACET325T53 PO (17:30)
[2018-06-02] MEDS ORDERED: Blood Sugar Diagnostic VI (17:30)
[2018-06-02] MEDS ORDERED: HYDR-3326 PO (17:30)
[2018-06-02] MEDS ORDERED: DEXT50DI8 IV (17:30)
[2018-06-02] MEDS ORDERED: PREG25CA PO (17:30)
[2018-06-02] MEDS ORDERED: INSU100V28 SQ ×2 (17:30)
[2018-06-02] MEDS ORDERED: LINA5TAB PO (17:30)
[2018-06-02] MEDS ORDERED: APIX2.5T PO (17:30)
--- NOTE | 2018-06-02 18:31 | NUR ---
d/c orders received noted and carried out,d/c instruction and rn report given to rehab ,pt left the floor via wheel chair to rehab in stable condition
== END 2018-06-02 18:15 | DRG 871 ==
LOC: ER 19:34 → TELE 22:00 → MED 05-31 10:30
PROVIDERS: ADMIT Family Medicine; ATTEND Internal Medicine
PROC: 30233N1 Transfusion of Nonautologous Red Blood Cells into Peripheral Vein, Percutaneous Approach (ICD-10-PCS; principal; 2018-05-31)
DX: A41.51 Sepsis due to Escherichia coli [E. coli] (principal); G92 Toxic encephalopathy; N17.0 Acute kidney failure with tubular necrosis; I50.33 Acute on chronic diastolic (congestive) heart failure; E11.10 Type 2 diabetes mellitus with ketoacidosis without coma; N39.0 Urinary tract infection, site not specified; Q43.3 Congenital malformations of intestinal fixation; R65.20 Severe sepsis without septic shock; Z16.12 Extended spectrum beta lactamase (ESBL) resistance; I11.0 Hypertensive heart disease with heart failure; I25.10 Atherosclerotic heart disease of native coronary artery without angina pectoris; Z95.1 Presence of aortocoronary bypass graft; E66.9 Obesity, unspecified; Z68.27 Body mass index [BMI] 27.0-27.9, adult; M81.0 Age-related osteoporosis without current pathological fracture; K56.41 Fecal impaction; D50.0 Iron deficiency anemia secondary to blood loss (chronic); N40.0 Benign prostatic hyperplasia without lower urinary tract symptoms; Z95.0 Presence of cardiac pacemaker; Z86.73 Personal history of transient ischemic attack (TIA), and cerebral infarction without residual deficits; Z79.01 Long term (current) use of anticoagulants; Z79.84 Long term (current) use of oral hypoglycemic drugs; K44.9 Diaphragmatic hernia without obstruction or gangrene; I27.20 Pulmonary hypertension, unspecified; G89.29 Other chronic pain; E11.42 Type 2 diabetes mellitus with diabetic polyneuropathy; E11.51 Type 2 diabetes mellitus with diabetic peripheral angiopathy without gangrene; I25.2 Old myocardial infarction; E78.5 Hyperlipidemia, unspecified; I35.0 Nonrheumatic aortic (valve) stenosis; M19.90 Unspecified osteoarthritis, unspecified site
CPT/HCPCS: 36415; 70030-TC; 70450; 71045; 83550; 83605; 83735; 84100; 85025; 85730; 86850; 86900; 86901; 86920; 87040; 87077; 87086; 93005; 97110; 97116; 97530; A4663; J0696; J0743; J1580; J1815; J1940; J2185; J2916; J3475; J3490; J7030; J7050; J7060; P9016-BL; P9021

== ENCOUNTER 2018-06-02 18:46 | Inpatient (IN) | payer MEDICARE, OTHER ==
[~2018-06-02] VITALS: Ht 177.8 cm; Wt 77.1 kg
[~2018-06-02 18:46] MED LIST changes: +ACET325T53 PO; +ASPI-618 PO; +Blood Sugar Diagnostic VI; -CARV12.52 PO; +CARV25TA2 PO; +DEXT50DI8 IV; -ERTA1VIA2 IV; -GUAI118S10 PO; +HYDR-3326 PO; +INSU100V28 SQ; +LINA5TAB PO; +MENT71OI TOP; +MERO500V IV; +METF-440 PO; -PANT40TA2 PO; +PANT40TA4 PO; +POTA10TA15 PO; +PREG25CA PO; +PREG75CA PO; -SILD50TA PO; +TAMS0.4C34 PO; -VALS80TA2 PO
[2018-06-02] MEDS ORDERED: HYDROCODONE/APAP 5-325MG TABLET PO PRN ×2 (19:00→19:45)
[2018-06-02] MEDS ORDERED: ACETAMINOPHEN 325 MG TABLET PO PRN ×2 (19:00→19:45)
[2018-06-02] MEDS ORDERED: ONDANSETRON 4 MG/2 ML VIAL IV PRN (19:00)
[2018-06-02] MEDS ORDERED: MAGNESIUM HYDROXIDE 30 ML LIQUID UDC PO PRN (19:00)
[2018-06-02] MEDS ORDERED: Z GUARD REMEDY PASTE 57 GM TUBE TOP PRN (19:00)
[2018-06-02] MEDS ORDERED: ZOLPIDEM 5 MG TABLET PO PRN (19:00)
[2018-06-02] MEDS ORDERED: INSULIN REGULAR, HUMAN 300 UNIT/3 ML VIAL SQ PRN (19:45)
[2018-06-02] MEDS ORDERED: THERAHONEY GEL 1.5 OZ TUBE TOP PRN (19:45)
[2018-06-02] MEDS ORDERED: DEXTROSE 50% 50 ML DISP.SYRIN IV PRN (20:30)
[2018-06-02] MEDS: BLOOD SUGAR DIAGNOSTIC 1 EACH STRIP VI SCH (21:00)
[2018-06-02] MEDS ORDERED: MEROPENEM 500 MG VIAL IV SCH (22:00)
[2018-06-02] MEDS: MEROPENEM 0.5 G in IV NORMAL SALINE 50 ML IV SCH (22:00)
[2018-06-02 23:05] VITALS: BP 136/70
[2018-06-02] MEDS: AMLODIPINE 5 MG TABLET PO SCH (23:25)
[2018-06-02] MEDS: PREGABALIN 25 MG CAPSULE PO SCH (23:25)
[2018-06-02] MEDS: TAMSULOSIN HCL 0.4 MG CAP.SR.24H PO SCH (23:25)
[2018-06-02] MEDS: DOCUSATE SODIUM 100 MG CAPSULE PO SCH (23:26)
[2018-06-02] MEDS: INSULIN REGULAR, HUMAN 300 UNIT/3 ML VIAL SQ PRN (23:40)
--- NOTE | 2018-06-03 03:26 | NUR ---
Received pt in bed, appearing to be asleep but arouses easily to verbal stimuli and light touch. Admitting this 82 y/o male from 2nd floor, arrived on to unit at 1800 via wheelchair per AM nurse. Routine admission care done. Informed Dr. Candelaria regarding med recon. Med recon completed. No acute distress noted. Continuing 4LPM NC, tolerating well. All safety measures and fall precautions maintained. Call light and all personal belongings within reach. Will continue to monitor.
--- NOTE | 2018-06-03 03:30 | NUR ---
Pt refused pictures despite explaining risks and benefits. Safety maintained. Call light within reach. Will try again in AM. Will continue to monitor.
[2018-06-03 04:00] VITALS: BP 133/62
[2018-06-03] MEDS: MEROPENEM 0.5 G in IV NORMAL SALINE 50 ML IV SCH ×2 (05:12→18:01)
[2018-06-03] MEDS: PANTOPRAZOLE SODIUM 40 MG TABLET.DR PO SCH ×2 (06:34→09:08)
[2018-06-03] MEDS: BLOOD SUGAR DIAGNOSTIC 1 EACH STRIP VI SCH ×4 (06:34→20:48)
[2018-06-03 08:30] VITALS: BP 125/58
[2018-06-03] MEDS ORDERED: Medication Not On Formulary EA (Apixaban (Eliquis) 2.5 MG) PO SCH (09:00)
[2018-06-03] MEDS ORDERED: PANTOPRAZOLE SODIUM 40 MG TABLET.DR PO SCH (09:00)
[2018-06-03] MEDS: AMLODIPINE 5 MG TABLET PO SCH ×2 (09:06→20:27)
[2018-06-03] MEDS: CARVEDILOL 25 MG TABLET PO SCH ×2 (09:07→17:41)
[2018-06-03] MEDS: POTASSIUM CHLORIDE 10 MEQ TAB.PRT.SR PO SCH (09:07)
[2018-06-03] MEDS: FUROSEMIDE 40 MG TABLET PO SCH (09:07)
[2018-06-03] MEDS: LINAGLIPTIN 5 MG TABLET PO SCH (09:07)
[2018-06-03] MEDS: METFORMIN HCL 500 MG TABLET PO SCH ×2 (09:08→17:40)
[2018-06-03] MEDS: GLIMEPIRIDE 4 MG TABLET PO SCH (09:08)
[2018-06-03] MEDS: ASPIRIN EC 81 MG TABLET.DR PO SCH (09:08)
[2018-06-03] MEDS: PREGABALIN 25 MG CAPSULE PO SCH ×2 (09:09→20:27)
[2018-06-03] MEDS: APIXABAN 5 MG PO SCH ×2 (09:10→17:40)
--- NOTE | 2018-06-03 10:00 | NUR ---
Received pt. in bed lying comfortable. Pt. A/Ox2-3, able to make his needs known. No s/sx of hypo/hyperglycemia. On contact isolation precaution of VRE urine. On IV ATB for sepsis, PIV remain intact with no iv complication noted. All due AM medications administered as ordered and tolerated well. Attempted to take skin assessment pictures, pt. declined, risk and benefits discussed, pt. verbalized clear understanding. Daughter on-site, as pt. insisted on leaving facility, pt and DTR educated on the importance of continued rehab. Pt. and DTR decided to stay for "few more days." Pt. on 4 LPM via NC tolerating well. All pt. needs promptly attended and met. Safety measures in place. Call light and all frequently used items in reach. Will continue to monitor accordingly.
[2018-06-03] MEDS: INSULIN REGULAR, HUMAN 300 UNIT/3 ML VIAL SQ PRN ×3 (12:22→20:46)
[2018-06-03 16:19] VITALS: BP 121/60
--- NOTE | 2018-06-03 19:39 | NUR ---
EOS note: No significant change during this shift. No s/sx of hypo/hyperglycemia, continued on IV atb and tolerated well. PIV intact with no s/sx of IV complications. All due medications given as ordered and tolerated well. All pt. needs attended and met. Call light and all frequently used items in reach.
[2018-06-03 20:00] VITALS: BP 103/61
[2018-06-03] MEDS: DOCUSATE SODIUM 100 MG CAPSULE PO SCH (20:26)
[2018-06-03] MEDS: TAMSULOSIN HCL 0.4 MG CAP.SR.24H PO SCH (20:30)
[2018-06-04 05:43] VITALS: BP 131/62
[2018-06-04] MEDS: MEROPENEM 0.5 G in IV NORMAL SALINE 50 ML IV SCH ×2 (06:05→16:55)
[2018-06-04] MEDS: BLOOD SUGAR DIAGNOSTIC 1 EACH STRIP VI SCH ×4 (06:49→21:03)
[2018-06-04] MEDS: GLIMEPIRIDE 4 MG TABLET PO SCH (06:52)
[2018-06-04] MEDS: POTASSIUM CHLORIDE 10 MEQ TAB.PRT.SR PO SCH (08:17)
[2018-06-04] MEDS: ASPIRIN EC 81 MG TABLET.DR PO SCH (08:17)
[2018-06-04] MEDS: PREGABALIN 25 MG CAPSULE PO SCH ×2 (08:17→20:59)
[2018-06-04] MEDS: LINAGLIPTIN 5 MG TABLET PO SCH (08:17)
[2018-06-04] MEDS: FUROSEMIDE 40 MG TABLET PO SCH (08:17)
[2018-06-04] MEDS: AMLODIPINE 5 MG TABLET PO SCH ×2 (08:18→20:59)
[2018-06-04] MEDS: CARVEDILOL 25 MG TABLET PO SCH ×2 (08:18→16:55)
[2018-06-04] MEDS: METFORMIN HCL 500 MG TABLET PO SCH ×2 (08:32→16:53)
[2018-06-04] MEDS: APIXABAN 5 MG PO SCH ×2 (08:33→16:30)
[2018-06-04] MEDS: INSULIN REGULAR, HUMAN 300 UNIT/3 ML VIAL SQ PRN ×2 (11:57→16:26)
--- NOTE | 2018-06-04 12:35 | NUR ---
PATIENT AWAKE ALERT AND ANSWERS QUESTIONS APPROPRIATELY, DENIES ACUTE PAIN OR SOB. CONTINUE WITH DAILY MERREM IV FOR VRRE IN URINE, NO SIGNS OF ALLERGY REACTION. PARTICIPATED FAIRLY WITH THERAPY, SEE NOTES. CONTINUE WITH BLOOD SUGAR MONITORNG WITH REGULAR INSULIN SLIDING SCALE. FAMILY VISITED GAVE EDUCATION FOR ONGOING ISSUES. ALL SUPPORTIVE WITH CARE
[2018-06-04 15:54] VITALS: BP 132/65
--- NOTE | 2018-06-04 20:00 | NUR ---
Received patient laying in bed. Family at bedside. In no acute distress noted. A/O x 3. Italian speaking but able to make his needs known. 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 Contact isolation for EColi and VRE in the urine. Patient is on O2 3L NC. IV on the Left hand, patent and intact. long-term assessment done. Skin appears to be intact. Per patient, last BM was today. Safety initiated. Call light within reach. Bed in low and locked position. Will continue to monitor.
[2018-06-04] MEDS: TAMSULOSIN HCL 0.4 MG CAP.SR.24H PO SCH (20:58)
[2018-06-04] MEDS: DOCUSATE SODIUM 100 MG CAPSULE PO SCH (20:58)
[2018-06-04 21:00] VITALS: BP 132/63
--- NOTE | 2018-06-05 02:01 | NUR ---
INTERDISCIPLINARY TEAM CONFERENCE
--- NOTE | 2018-06-05 05:33 | NUR ---
No changes t/o shift. Patient is comfortable. Patient remains on O2 3L NC. Remains A/O x 3. Denies pain at the moment. IV on the left wrist patent and intact. Safety and comfort measures maintained t/o shift. Good urine output. Vital signs stable. All meds given as ordered. All needs met. Call light within reach. Bed in low and locked position. Room is kept clutter free.
[2018-06-05] MEDS: MEROPENEM 0.5 G in IV NORMAL SALINE 50 ML IV SCH ×2 (06:13→17:07)
[2018-06-05] MEDS: PANTOPRAZOLE SODIUM 40 MG TABLET.DR PO SCH (06:13)
[2018-06-05 06:14] VITALS: BP 126/78
[2018-06-05] MEDS: BLOOD SUGAR DIAGNOSTIC 1 EACH STRIP VI SCH ×4 (06:54→20:32)
--- NOTE | 2018-06-05 07:05 | NUR ---
IV on the left hand infiltrated. New IV site started on the left AC, patent and intact.
[2018-06-05 07:21] LABS: BASOPHILS % (AUTO) 0.4 % (0.0-2.0); EOSINOPHILS # (AUTO) 0.2 K/uL (0.0-0.7); EOSINOPHILS % (AUTO) 2.1 % (0.0-7.0); HEMATOCRIT 28.8 % (36.7-47.1); HEMOGLOBIN 9.7 g/dL (12.5-16.3); LYMPHOCYTES % (AUTO) 13.1 % (20.5-51.5); MEAN CORPUSCULAR HEMOGLOBIN 29.6 uug (23.8-33.4); MEAN CORPUSCULAR HGB CONC 34 g/dL (32.5-36.3); MEAN CORPUSCULAR VOLUME 88.4 fL (73.0-96.2); MONOCYTES # (AUTO) 0.5 K/uL (2.0-10.0); MONOCYTES % (AUTO) 6.2 % (0.0-11.0); NEUTROPHILS # (AUTO) 5.8 K/uL (1.8-8.9); NEUTROPHILS % (AUTO) 78.2 % (38.5-71.5); PLATELET COUNT (AUTO) 211 K/uL (152-348); RED BLOOD CELL COUNT(AUTO) 3.26 MIL/uL (4.06-5.63); WHITE BLOOD COUNT (AUTO) 7.4 K/uL (3.6-10.2)
[2018-06-05 07:43] LABS: ALANINE AMINOTRANSFERASE 23 U/L (16-63); ALKALINE PHOSPHATASE 80 U/L (50-136); ASPARTATE AMINOTRANSFERASE 11 U/L (15-37); BILIRUBIN,TOTAL 0.8 mg/dL (0.2-1.0); CARBON DIOXIDE 24 mmol/L (21-32); CHLORIDE 103 mmol/L (98-107); CREATININE 1.1 mg/dL (0.6-1.3); GLUCOSE 143 mg/dL (74-106); MAGNESIUM 1.8 mg/dL (1.8-2.4); PHOSPHOROUS 3.8 mg/dL (2.5-4.9); POTASSIUM 3.8 mmol/L (3.5-5.1); TOTAL PROTEIN, SERUM 7.1 g/dL (6.4-8.2); UREA NITROGEN, BLOOD 20 mg/dL (7-18)
[2018-06-05 08:20] VITALS: BP 141/65
[2018-06-05] MEDS: METFORMIN HCL 500 MG TABLET PO SCH ×2 (08:23→17:00)
[2018-06-05] MEDS: GLIMEPIRIDE 4 MG TABLET PO SCH (08:24)
[2018-06-05] MEDS: CARVEDILOL 25 MG TABLET PO SCH ×2 (08:24→17:03)
[2018-06-05] MEDS: PREGABALIN 25 MG CAPSULE PO SCH ×2 (08:25→20:26)
[2018-06-05] MEDS: POTASSIUM CHLORIDE 10 MEQ TAB.PRT.SR PO SCH (08:25)
[2018-06-05] MEDS: ASPIRIN EC 81 MG TABLET.DR PO SCH (08:25)
[2018-06-05] MEDS: LINAGLIPTIN 5 MG TABLET PO SCH (08:25)
[2018-06-05] MEDS: FUROSEMIDE 40 MG TABLET PO SCH (08:27)
[2018-06-05] MEDS: AMLODIPINE 5 MG TABLET PO SCH ×2 (08:27→20:26)
[2018-06-05] MEDS: APIXABAN 5 MG PO SCH ×2 (08:30→16:59)
[2018-06-05] MEDS: INSULIN REGULAR, HUMAN 300 UNIT/3 ML VIAL SQ PRN ×3 (12:54→20:34)
[2018-06-05 15:58] VITALS: BP 141/66
--- NOTE | 2018-06-05 19:10 | NUR ---
RECEIVED PT ASLEEP ON BED, NO SIGNS OF RESPIRATORY DISTRESS NOTED. IV SITE, ON LAC, PATENT AND INTACT. SAFETY MEASURES INITIATED, CALL GALVEZ WITHIN REACH.
[2018-06-05 19:52] VITALS: BP 135/62
[2018-06-05] MEDS: DOCUSATE SODIUM 100 MG CAPSULE PO SCH (20:27)
[2018-06-05] MEDS: TAMSULOSIN HCL 0.4 MG CAP.SR.24H PO SCH (20:27)
[2018-06-06] MEDS ORDERED: ALBUTEROL SULFATE 1.25 MG/3 ML NEBU NEB PRN (00:30)
[2018-06-06] MEDS: MEROPENEM 0.5 G in IV NORMAL SALINE 50 ML IV SCH ×2 (06:31→17:18)
[2018-06-06] MEDS: PANTOPRAZOLE SODIUM 40 MG TABLET.DR PO SCH (06:32)
[2018-06-06 06:34] VITALS: BP 114/63
[2018-06-06] MEDS: BLOOD SUGAR DIAGNOSTIC 1 EACH STRIP VI SCH ×4 (06:41→20:58)
--- NOTE | 2018-06-06 06:50 | NUR ---
PT AWAKE ON BED, AAOX3, DENIES ANY SOB OR DISCOMFORT AT THIS TIME. ON O2 3L VIA NC, TOLERATED WELL. IV SITE ON LAC, PATENT AND INTACT. ALL NEEDS ATTENDED AND MET. SAFE ENVIRONMENT MAINTAINED AT ALL TIMES, CALL GALVEZ WITHIN REACH.
[2018-06-06] MEDS: METFORMIN HCL 500 MG TABLET PO SCH ×2 (08:27→17:05)
[2018-06-06] MEDS: LINAGLIPTIN 5 MG TABLET PO SCH (08:27)
[2018-06-06] MEDS: GLIMEPIRIDE 4 MG TABLET PO SCH (08:28)
[2018-06-06] MEDS: ASPIRIN EC 81 MG TABLET.DR PO SCH (08:28)
[2018-06-06] MEDS: POTASSIUM CHLORIDE 10 MEQ TAB.PRT.SR PO SCH (08:28)
[2018-06-06] MEDS: FUROSEMIDE 40 MG TABLET PO SCH (08:28)
[2018-06-06] MEDS: PREGABALIN 25 MG CAPSULE PO SCH ×2 (08:28→20:51)
[2018-06-06] MEDS: CARVEDILOL 25 MG TABLET PO SCH ×2 (08:28→17:06)
[2018-06-06] MEDS: AMLODIPINE 5 MG TABLET PO SCH ×2 (08:28→20:51)
[2018-06-06] MEDS: APIXABAN 5 MG PO SCH ×2 (08:28→17:06)
--- NOTE | 2018-06-06 09:30 | NUR ---
Received patient, awake, alert x4. No pain noted. With O2 at 5LPM sating at 93%. Not in any form of distress. Informed Dr. Zaragoza. Seen and examined by Dr Zaragoza diagnostics ordered.
[2018-06-06] MEDS ORDERED: POTASSIUM CHLORIDE 20 MEQ TAB.PRT.SR PO ONE (10:00)
[2018-06-06] MEDS: INSULIN REGULAR, HUMAN 300 UNIT/3 ML VIAL SQ PRN ×2 (11:59→17:05)
[2018-06-06 13:30] VITALS: BP 137/64
--- NOTE | 2018-06-06 13:49 | NUR ---
Seen and examined by Dr Alonzo. Relayed result for Echocardiogram. With SOB, no chest pains noted. On 91% per NC at 4LPM
[2018-06-06] MEDS ORDERED: FUROSEMIDE 40 MG/4 ML VIAL IV ONE (16:00)
[2018-06-06 16:26] VITALS: BP 136/66
[2018-06-06 19:52] VITALS: BP 149/73
[2018-06-06] MEDS: DOCUSATE SODIUM 100 MG CAPSULE PO SCH (20:50)
[2018-06-06] MEDS: TAMSULOSIN HCL 0.4 MG CAP.SR.24H PO SCH (20:51)
[2018-06-07 06:00] VITALS: BP 135/63
[2018-06-07] MEDS: PANTOPRAZOLE SODIUM 40 MG TABLET.DR PO SCH (06:11)
[2018-06-07] MEDS: MEROPENEM 0.5 G in IV NORMAL SALINE 50 ML IV SCH (06:11)
[2018-06-07 07:29] LABS: BASOPHILS % (AUTO) 0.5 % (0.0-2.0); EOSINOPHILS # (AUTO) 0.2 K/uL (0.0-0.7); EOSINOPHILS % (AUTO) 2.4 % (0.0-7.0); HEMATOCRIT 28.5 % (36.7-47.1); HEMOGLOBIN 9.7 g/dL (12.5-16.3); LYMPHOCYTES # (AUTO) 0.9 K/uL (20.0-40.0); LYMPHOCYTES % (AUTO) 12.7 % (20.5-51.5); MEAN CORPUSCULAR HEMOGLOBIN 29.9 uug (23.8-33.4); MEAN CORPUSCULAR HGB CONC 34 g/dL (32.5-36.3); MEAN CORPUSCULAR VOLUME 88.2 fL (73.0-96.2); MONOCYTES # (AUTO) 0.5 K/uL (2.0-10.0); MONOCYTES % (AUTO) 7.3 % (0.0-11.0); NEUTROPHILS # (AUTO) 5.5 K/uL (1.8-8.9); NEUTROPHILS % (AUTO) 77.1 % (38.5-71.5); PLATELET COUNT (AUTO) 201 K/uL (152-348); RED BLOOD CELL COUNT(AUTO) 3.23 MIL/uL (4.06-5.63); WHITE BLOOD COUNT (AUTO) 7.1 K/uL (3.6-10.2)
[2018-06-07 07:43] LABS: CARBON DIOXIDE 26 mmol/L (21-32); CHLORIDE 105 mmol/L (98-107); CREATININE 1.1 mg/dL (0.6-1.3); GLUCOSE 115 mg/dL (74-106); MAGNESIUM 1.6 mg/dL (1.8-2.4); PHOSPHOROUS 3.4 mg/dL (2.5-4.9); UREA NITROGEN, BLOOD 18 mg/dL (7-18)
[2018-06-07 08:00] VITALS: BP 142/66
[2018-06-07] MEDS: BLOOD SUGAR DIAGNOSTIC 1 EACH STRIP VI SCH ×4 (08:03→20:58)
[2018-06-07] MEDS: LINAGLIPTIN 5 MG TABLET PO SCH (08:31)
[2018-06-07] MEDS: CARVEDILOL 25 MG TABLET PO SCH ×2 (08:31→17:00)
[2018-06-07] MEDS: FUROSEMIDE 40 MG TABLET PO SCH (08:32)
[2018-06-07] MEDS: ASPIRIN EC 81 MG TABLET.DR PO SCH (08:32)
[2018-06-07] MEDS: PREGABALIN 25 MG CAPSULE PO SCH ×2 (08:32→21:02)
[2018-06-07] MEDS: METFORMIN HCL 500 MG TABLET PO SCH ×2 (08:32→17:00)
[2018-06-07] MEDS: POTASSIUM CHLORIDE 10 MEQ TAB.PRT.SR PO SCH (08:32)
[2018-06-07] MEDS: GLIMEPIRIDE 4 MG TABLET PO SCH (08:33)
[2018-06-07] MEDS: AMLODIPINE 5 MG TABLET PO SCH ×2 (08:33→21:02)
[2018-06-07] MEDS: APIXABAN 5 MG PO SCH ×2 (08:35→16:57)
[2018-06-07 09:04] LABS: ABG BASE EXCESS 0.2 mmol/L; ABG HCO3 24.2 mmol/L; ABG PCO2 36.3 mmHg (35.0-45.0); ABG PH 7.441 (7.350-7.450); ABG PO2 61.4 mmHg (75.0-100.0); ABG SITE LEFT RADIAL; ABG TOTAL HEMOGLOBIN 9.7 G/dL (13.5-18.0); COHb 1.5 % (0.5-1.5); MetHb 0.3 % (0.0-1.5); VENT MODE Nasal Cannula
[2018-06-07] MEDS: INSULIN REGULAR, HUMAN 300 UNIT/3 ML VIAL SQ PRN ×3 (11:47→21:01)
[2018-06-07] MEDS: MEROPENEM 500 MG in IV NORMAL SALINE 50 ML IV SCH ×2 (14:00→21:01)
[2018-06-07] MEDS: MAGNESIUM SULFATE/D5W 100 ML IV SCH ×2 (14:00→15:59)
[2018-06-07 16:23] VITALS: BP 135/71
--- NOTE | 2018-06-07 20:00 | NUR ---
Received pt sleeping, easily arousable via verbal and tactile stimuli. Pt on 4L NC with SpO2 at 92%. No acute distress noted at this time. Safe environment implemented. Call light within reach.
[2018-06-07 20:39] VITALS: BP 118/70
[2018-06-07] MEDS: TAMSULOSIN HCL 0.4 MG CAP.SR.24H PO SCH (21:02)
[2018-06-07] MEDS: DOCUSATE SODIUM 100 MG CAPSULE PO SCH (21:02)
[2018-06-08 05:30] VITALS: BP 138/66
[2018-06-08] MEDS: MEROPENEM 500 MG in IV NORMAL SALINE 50 ML IV SCH ×3 (05:43→21:42)
[2018-06-08] MEDS: PANTOPRAZOLE SODIUM 40 MG TABLET.DR PO SCH (06:25)
[2018-06-08] MEDS: BLOOD SUGAR DIAGNOSTIC 1 EACH STRIP VI SCH ×5 (06:37→20:53)
--- NOTE | 2018-06-08 06:50 | NUR ---
Pt blood sugar this morning noted to be 65, pt in no acute distress easily arousable via verbal and tactile stimuli, remains AAO x4. [place] juice administered. Blood sugar reassessed and noted to be 104.
[2018-06-08 07:14] LABS: BASOPHILS % (AUTO) 0.4 % (0.0-2.0); EOSINOPHILS # (AUTO) 0.2 K/uL (0.0-0.7); EOSINOPHILS % (AUTO) 3.1 % (0.0-7.0); HEMATOCRIT 26.6 % (36.7-47.1); LYMPHOCYTES # (AUTO) 1.1 K/uL (20.0-40.0); LYMPHOCYTES % (AUTO) 17.3 % (20.5-51.5); MEAN CORPUSCULAR HGB CONC 34 g/dL (32.5-36.3); MEAN CORPUSCULAR VOLUME 88.7 fL (73.0-96.2); MONOCYTES # (AUTO) 0.6 K/uL (2.0-10.0); MONOCYTES % (AUTO) 8.8 % (0.0-11.0); NEUTROPHILS # (AUTO) 4.5 K/uL (1.8-8.9); NEUTROPHILS % (AUTO) 70.4 % (38.5-71.5); PLATELET COUNT (AUTO) 176 K/uL (152-348); RED BLOOD CELL COUNT(AUTO) 2.99 MIL/uL (4.06-5.63); WHITE BLOOD COUNT (AUTO) 6.4 K/uL (3.6-10.2)
--- NOTE | 2018-06-08 07:15 | NUR ---
Nurse Notes; patient awake, alert. lying on bed on a semi stanton's position. On oxygen via nasal cannula. no SOB or distress. no s/sx of hypoxia noted. IV site patent and intact. On contact isolation. Encouraged to use call light whenever assistance is needed. safety precautions initiated. Call light, telephone and urinal are within reach. Will continue to monitor.
[2018-06-08 07:27] LABS: CARBON DIOXIDE 26 mmol/L (21-32); CHLORIDE 104 mmol/L (98-107); CREATININE 1.1 mg/dL (0.6-1.3); GLUCOSE 98 mg/dL (74-106); PHOSPHOROUS 3.6 mg/dL (2.5-4.9); UREA NITROGEN, BLOOD 17 mg/dL (7-18)
[2018-06-08 08:00] VITALS: BP 135/69
[2018-06-08] MEDS: APIXABAN 5 MG PO SCH ×2 (08:37→17:29)
[2018-06-08] MEDS: LINAGLIPTIN 5 MG TABLET PO SCH (08:37)
[2018-06-08] MEDS: POTASSIUM CHLORIDE 10 MEQ TAB.PRT.SR PO SCH (08:37)
[2018-06-08] MEDS: METFORMIN HCL 500 MG TABLET PO SCH ×2 (08:37→17:29)
[2018-06-08] MEDS: GLIMEPIRIDE 4 MG TABLET PO SCH (08:38)
[2018-06-08] MEDS: AMLODIPINE 5 MG TABLET PO SCH ×2 (08:38→20:49)
[2018-06-08] MEDS: FUROSEMIDE 40 MG TABLET PO SCH (08:38)
[2018-06-08] MEDS: ASPIRIN EC 81 MG TABLET.DR PO SCH (08:38)
[2018-06-08] MEDS: CARVEDILOL 25 MG TABLET PO SCH ×2 (08:38→17:29)
[2018-06-08] MEDS: PREGABALIN 25 MG CAPSULE PO SCH ×2 (09:44→20:48)
[2018-06-08] MEDS: INSULIN REGULAR, HUMAN 300 UNIT/3 ML VIAL SQ PRN ×2 (12:11→17:31)
[2018-06-08 16:02] VITALS: BP 128/68
--- NOTE | 2018-06-08 18:15 | NUR ---
Nurse Notes: patient remained stable throughout the shift with no acute changes noted. no SOB or distress. on oxygen via nasal cannula. Assessed for pain. denies any pain or discomforts. Performed blood sugar checks as scheduled. administered all due medications. vital signs WNL. Afebrile. Chest x-ray relayed to Dr. Cecilio Alonzo with no new orders at this time. Will continue to monitor. All needs were attended and anticipated. Call light, telephone and urinal within reach at all times. Contact isolation precaution observed throughout the shift. Will endorse accordingly to next shift for continuity of care.
--- NOTE | 2018-06-08 19:15 | NUR ---
Received patient in bed. Alert and verbally responsive. Able to make needs known. Denies any pain and discomfort. No acute distress. No SOB. On O2 @ 4L via NC. On contact precaution for VRE of the urine. All contact precautions taken. IV site on left antecubital. Patent and intact. No s/s of infiltration. Kept clean and dry. All needs attended to promptly. Call light within reach. Will continue to monitor.
[2018-06-08 20:32] VITALS: BP 141/64
[2018-06-08 20:34] VITALS: BP 134/68
[2018-06-08] MEDS: DOCUSATE SODIUM 100 MG CAPSULE PO SCH (20:49)
[2018-06-08] MEDS: TAMSULOSIN HCL 0.4 MG CAP.SR.24H PO SCH (20:49)
[2018-06-09] MEDS: PANTOPRAZOLE SODIUM 40 MG TABLET.DR PO SCH (06:28)
[2018-06-09] MEDS: MEROPENEM 500 MG in IV NORMAL SALINE 50 ML IV SCH ×3 (06:28→21:01)
[2018-06-09] MEDS: BLOOD SUGAR DIAGNOSTIC 1 EACH STRIP VI SCH ×4 (06:34→20:57)
[2018-06-09 06:52] VITALS: BP 127/64
--- NOTE | 2018-06-09 06:57 | NUR ---
Patient on Contact precautions for VRE urine. All contact precautions noted. Patient slept comfortably throughout the night. No c/o pain and discomfort. No acute distress. No SOB. On O2 at 4L via NC with saturation at 99%. IV site on left AC is patent and intact. Kept clean and dry. BS this am is 106. No insulin coverage needed. All needs attended to promptly. Call light within reach. Will continue to monitor.
[2018-06-09 08:06] VITALS: BP 140/61
[2018-06-09] MEDS: POTASSIUM CHLORIDE 10 MEQ TAB.PRT.SR PO SCH (08:52)
[2018-06-09] MEDS: PREGABALIN 25 MG CAPSULE PO SCH ×2 (08:52→20:51)
[2018-06-09] MEDS: GLIMEPIRIDE 4 MG TABLET PO SCH (08:53)
[2018-06-09] MEDS: CARVEDILOL 25 MG TABLET PO SCH ×2 (08:53→18:04)
[2018-06-09] MEDS: METFORMIN HCL 500 MG TABLET PO SCH ×2 (08:53→18:03)
[2018-06-09] MEDS: LINAGLIPTIN 5 MG TABLET PO SCH (08:54)
[2018-06-09] MEDS: ASPIRIN EC 81 MG TABLET.DR PO SCH (08:54)
[2018-06-09] MEDS: FUROSEMIDE 40 MG TABLET PO SCH (08:54)
[2018-06-09] MEDS: AMLODIPINE 5 MG TABLET PO SCH ×2 (08:54→20:55)
[2018-06-09] MEDS: APIXABAN 5 MG PO SCH ×2 (09:03→16:40)
[2018-06-09] MEDS: INSULIN REGULAR, HUMAN 300 UNIT/3 ML VIAL SQ PRN (12:15)
--- NOTE | 2018-06-09 14:45 | NUR ---
SBAR report received, board updated. Pt resting in bed, denies c/o pain or SOB. Pt cooperative with all morning medication administration and therapies as scheduled. Left AC IV flushed and patent, IV antibiotic hung per MD orders. Pt remains on VRE urine contact isolation at this time. All comfort and safety needs attended to, bed in locked and lowest position, with side rails upx2. Call light within reach. Will continue to monitor.
--- NOTE | 2018-06-09 15:53 | NUR ---
INTERDISCIPLINARY TEAM CONFERENCE
[2018-06-09 16:03] VITALS: BP 127/69
[2018-06-09 19:30] VITALS: BP 123/49
--- NOTE | 2018-06-09 20:06 | NUR ---
SBAR report received. aao x4 on contact isolation for VRE in the urine. On IV antibiotics, given at scheduled times. continent of bowel and bladder. voiding well in the urinal.denies any pain at this time. will monitor patient. needs attended. fall precautions maintained.
[2018-06-09] MEDS: DOCUSATE SODIUM 100 MG CAPSULE PO SCH (20:51)
[2018-06-09] MEDS: ATORVASTATIN 20 MG TABLET PO SCH (20:51)
[2018-06-09] MEDS: TAMSULOSIN HCL 0.4 MG CAP.SR.24H PO SCH (20:51)
[2018-06-10 04:00] VITALS: BP 143/65
--- NOTE | 2018-06-10 04:59 | NUR ---
sleeping most of the shift. no acute distress noted. denies any pain nor any discomfort.voiding well in the urinal. will monitor patient.
[2018-06-10] MEDS: MEROPENEM 500 MG in IV NORMAL SALINE 50 ML IV SCH ×3 (06:03→21:07)
[2018-06-10] MEDS: PANTOPRAZOLE SODIUM 40 MG TABLET.DR PO SCH (06:31)
[2018-06-10] MEDS: BLOOD SUGAR DIAGNOSTIC 1 EACH STRIP VI SCH ×4 (06:49→21:03)
[2018-06-10] MEDS: POTASSIUM CHLORIDE 10 MEQ TAB.PRT.SR PO SCH (08:28)
[2018-06-10] MEDS: PREGABALIN 25 MG CAPSULE PO SCH ×2 (08:29→20:57)
[2018-06-10] MEDS: LINAGLIPTIN 5 MG TABLET PO SCH (08:29)
[2018-06-10] MEDS: METFORMIN HCL 500 MG TABLET PO SCH ×2 (08:29→17:00)
[2018-06-10] MEDS: FUROSEMIDE 40 MG TABLET PO SCH (08:29)
[2018-06-10] MEDS: GLIMEPIRIDE 4 MG TABLET PO SCH (08:30)
[2018-06-10] MEDS: ASPIRIN EC 81 MG TABLET.DR PO SCH (08:30)
[2018-06-10] MEDS: CARVEDILOL 25 MG TABLET PO SCH ×2 (08:30→17:00)
[2018-06-10] MEDS: AMLODIPINE 5 MG TABLET PO SCH ×2 (08:30→20:57)
[2018-06-10] MEDS: APIXABAN 5 MG PO SCH ×2 (08:50→16:56)
[2018-06-10] MEDS ORDERED: FUROSEMIDE 40 MG TABLET PO SCH ×2 (09:00)
[2018-06-10] MEDS: INSULIN REGULAR, HUMAN 300 UNIT/3 ML VIAL SQ PRN ×2 (12:09→21:06)
--- NOTE | 2018-06-10 14:09 | NUR ---
SBAR report received this morning, board updated. Pt assessed, denies any c/o pain. Pt able to make needs known and compliant with routine medication administration. AOx4, VSS, no acute distress or SOB evident. Pt visited with family at bedside for lunch. Bed locked in lowest position, with side rails up x2. Isolation precautions for VRE of urine in place. Pt voiding clear, yellow urine in urinal. Pt seen by Earth Mover Dr. Ortega, no new orders, plan of care and results from today's CXR discussed. Call light and personal items within reach. Will continue to monitor for safety.
[2018-06-10 16:03] VITALS: BP 135/67
[2018-06-10] MEDS ORDERED: MAGNESIUM HYDROXIDE 30 ML LIQUID UDC PO PRN (16:30)
--- NOTE | 2018-06-10 17:37 | NUR ---
No change in Pt condition this shift. Pt denies feeling constipated, reports having had BM yesterday, even though it was not documented on I & O chart. Will continue to monitor.
[2018-06-10 19:30] VITALS: BP 131/59
--- NOTE | 2018-06-10 20:01 | NUR ---
SBAR received. awake alert and oriented x4 no acute distress noted. denies any pain nor any discomfort noted this shift. on contact isolation. VRE in the urine. On antibiotic therapy. tolerated well. No ill effects noted. will monitor patient. VSS continent of bowel and bladder. kept comfortable. fall precautions noted.
[2018-06-10] MEDS: ATORVASTATIN 20 MG TABLET PO SCH (20:56)
[2018-06-10] MEDS: DOCUSATE SODIUM 100 MG CAPSULE PO SCH (20:56)
[2018-06-10] MEDS: TAMSULOSIN HCL 0.4 MG CAP.SR.24H PO SCH (20:56)
[2018-06-11 04:00] VITALS: BP 132/61
--- NOTE | 2018-06-11 04:59 | NUR ---
slept most of the shift. no acute distress noted. contact isolation maintained. no BM noted. Had MOM polishing wheel repairer as needed for constipation. encouraged fluids. OOB to the BR with walker with supervision. Voiding without any difficulty. denies any pain nor any discomfort.VSS.
[2018-06-11] MEDS: MEROPENEM 500 MG in IV NORMAL SALINE 50 ML IV SCH ×3 (06:13→21:38)
[2018-06-11] MEDS: PANTOPRAZOLE SODIUM 40 MG TABLET.DR PO SCH (06:35)
[2018-06-11] MEDS: BLOOD SUGAR DIAGNOSTIC 1 EACH STRIP VI SCH ×4 (06:38→21:05)
--- NOTE | 2018-06-11 07:30 | NUR ---
RECIEVED PT IN BED, HOB [id number]. AWKE, ALERT AND ORIENTEDX3. SPEAKS LITTLE TURKMEN. SPEECH IS SLOW BUT CLEAR. FACE IS SLIGHTLY ASYMETRICAL, LEFT CHEEK IS SLIGHTLY DROOPING. DENIES VISUAL DISTURBANCES AND ABLE TO MOVE ALL EXTREMETIES WELL. COLOR IS GOOD. DENIES ANY HEADACHES. PT ON 02 AT 4LNC, SATURATION IS 97%. LUNGS ARE CLEAR. DECREASED O2 DOWN TO 3L. TOLERATING WELL. NO APPARENT RESPIRATORY DISTRESS NOTED.
[2018-06-11 08:06] VITALS: BP_SYST 114; BP_SYST 132; BP_DIAS 60; BP_DIAS 74
--- NOTE | 2018-06-11 08:30 | NUR ---
PT TOLERATED PT ACTIVITY WELL AND TOLERATED HIS BREAKFAST WELL.
--- NOTE | 2018-06-11 09:00 | NUR ---
PT HAS A HEPLOCK ON LEFT AC G#20 FOR HIS IV ANTIBIOTICS.
[2018-06-11] MEDS: POTASSIUM CHLORIDE 10 MEQ TAB.PRT.SR PO SCH (09:55)
[2018-06-11] MEDS: FUROSEMIDE 40 MG TABLET PO SCH (09:56)
[2018-06-11] MEDS: ASPIRIN EC 81 MG TABLET.DR PO SCH (09:56)
[2018-06-11] MEDS: CARVEDILOL 25 MG TABLET PO SCH ×2 (09:56→16:46)
[2018-06-11] MEDS: GLIMEPIRIDE 4 MG TABLET PO SCH (09:57)
[2018-06-11] MEDS: LINAGLIPTIN 5 MG TABLET PO SCH (09:57)
[2018-06-11] MEDS: METFORMIN HCL 500 MG TABLET PO SCH ×2 (09:57→16:46)
[2018-06-11] MEDS: AMLODIPINE 5 MG TABLET PO SCH ×2 (09:57→21:13)
[2018-06-11] MEDS: APIXABAN 5 MG PO SCH ×2 (10:29→16:56)
--- NOTE | 2018-06-11 11:00 | NUR ---
PT HAD A SHOWER WITH MINIMUM ASSISTANCE, TOLERATED WELL.
[2018-06-11] MEDS: PREGABALIN 25 MG CAPSULE PO SCH ×2 (11:49→21:09)
[2018-06-11] MEDS: INSULIN REGULAR, HUMAN 300 UNIT/3 ML VIAL SQ PRN ×2 (12:40→16:53)
[2018-06-11] MEDS ORDERED: FUROSEMIDE 40 MG/4 ML VIAL IV ONE (14:30)
--- NOTE | 2018-06-11 14:30 | NUR ---
SEEN AND EXAMINED BY DR DOMINGUEZ AND ORDERED LASIX 40MG IVP AND GIVEN ORDERED. PT DIURESING WELL USING HIS URINAL.
[2018-06-11 16:19] VITALS: BP 144/69
[2018-06-11 20:00] VITALS: BP 136/69
--- NOTE | 2018-06-11 21:02 | NUR ---
Blood sugar 60 given h.s snack.
[2018-06-11] MEDS: DOCUSATE SODIUM 100 MG CAPSULE PO SCH (21:03)
[2018-06-11] MEDS: ATORVASTATIN 20 MG TABLET PO SCH (21:04)
[2018-06-11] MEDS: TAMSULOSIN HCL 0.4 MG CAP.SR.24H PO SCH (21:04)
--- NOTE | 2018-06-11 21:40 | NUR ---
Recheck Blood Sugar 92 after h.s snack.
--- NOTE | 2018-06-11 23:14 | NUR ---
Start of shift: A/O x4 o2 @ 3L n/c o2 Sats 93% resp 18 lying in bed watch TV S/l 20 ga to Left a.c. intact no s/s of redness or inflammation. On Contact isolation VRE. Denies of any distress. siderail up call light within reach.
[2018-06-12 04:00] VITALS: BP 122/53
[2018-06-12] MEDS: MEROPENEM 500 MG in IV NORMAL SALINE 50 ML IV SCH ×2 (05:49→13:02)
[2018-06-12] MEDS: PANTOPRAZOLE SODIUM 40 MG TABLET.DR PO SCH (05:58)
--- NOTE | 2018-06-12 06:08 | NUR ---
Lying in bed awake Blood sugar 73 no coverage given. IVPB A/b infusing to left ac without difficulty. o2 @ 3L n/c. Denies of distress Slept 6 hours. Siderails up Call light within reach.
[2018-06-12 06:57] LABS: BASOPHILS % (AUTO) 0.6 % (0.0-2.0); EOSINOPHILS # (AUTO) 0.2 K/uL (0.0-0.7); EOSINOPHILS % (AUTO) 3.1 % (0.0-7.0); HEMATOCRIT 28.3 % (36.7-47.1); HEMOGLOBIN 9.6 g/dL (12.5-16.3); LYMPHOCYTES % (AUTO) 19.2 % (20.5-51.5); MEAN CORPUSCULAR HGB CONC 34 g/dL (32.5-36.3); MEAN CORPUSCULAR VOLUME 88.1 fL (73.0-96.2); MONOCYTES # (AUTO) 0.4 K/uL (2.0-10.0); MONOCYTES % (AUTO) 8.2 % (0.0-11.0); NEUTROPHILS # (AUTO) 3.6 K/uL (1.8-8.9); NEUTROPHILS % (AUTO) 68.9 % (38.5-71.5); PLATELET COUNT (AUTO) 146 K/uL (152-348); RED BLOOD CELL COUNT(AUTO) 3.21 MIL/uL (4.06-5.63); WHITE BLOOD COUNT (AUTO) 5.3 K/uL (3.6-10.2)
[2018-06-12 07:20] LABS: CARBON DIOXIDE 29 mmol/L (21-32); CHLORIDE 106 mmol/L (98-107); CREATININE 1.1 mg/dL (0.6-1.3); GLUCOSE 81 mg/dL (74-106); PHOSPHOROUS 3.4 mg/dL (2.5-4.9); POTASSIUM 3.9 mmol/L (3.5-5.1); UREA NITROGEN, BLOOD 16 mg/dL (7-18)
[2018-06-12] MEDS: LINAGLIPTIN 5 MG TABLET PO SCH (08:20)
[2018-06-12] MEDS: GLIMEPIRIDE 4 MG TABLET PO SCH (08:20)
[2018-06-12] MEDS: ASPIRIN EC 81 MG TABLET.DR PO SCH (08:21)
[2018-06-12] MEDS: POTASSIUM CHLORIDE 10 MEQ TAB.PRT.SR PO SCH (08:21)
[2018-06-12] MEDS: CARVEDILOL 25 MG TABLET PO SCH (08:21)
[2018-06-12] MEDS: FUROSEMIDE 40 MG TABLET PO SCH (08:22)
[2018-06-12] MEDS: AMLODIPINE 5 MG TABLET PO SCH (08:22)
[2018-06-12] MEDS: METFORMIN HCL 500 MG TABLET PO SCH (08:22)
[2018-06-12] MEDS: APIXABAN 5 MG PO SCH (08:31)
[2018-06-12] MEDS: BLOOD SUGAR DIAGNOSTIC 1 EACH STRIP VI SCH ×2 (08:32→11:40)
[2018-06-12] MEDS: PREGABALIN 25 MG CAPSULE PO SCH (09:37)
[2018-06-12] MEDS ORDERED: FUROSEMIDE 40 MG/4 ML VIAL IV ONE (10:30)
[2018-06-12 11:07] VITALS: BP 140/84
[2018-06-12] MEDS: INSULIN REGULAR, HUMAN 300 UNIT/3 ML VIAL SQ PRN (12:02)
--- NOTE | 2018-06-12 12:43 | NUR ---
SBAR report received, board updated. Pt assessed, denies pain and no acute distress noted. Pt compliant with all routine morning medications. VSS. Pt seen by Senior Accounting Associate this morning, new orders received, Lasix 40mg/4ml administered per MD orders. Hep lock flushed, intact, and patent. Bed in locked and lowest position with side rails up x2. All comfort and safety needs attended to at this time. Spoke with Pt regarding plan of care for today including anticipated D/C. Pt able to make needs known. Call light and personal items placed within reach. Will continue to monitor.
--- NOTE | 2018-06-12 14:35 | NUR ---
Discharge order received, transportation arrangement discussed with Pt. IV antibiotics finished, IV in left AC removed, intact. Pt belongings list signed, copy placed in chart. Discharge paperwork, Pt education, and Rx reviewed, signed, and copies placed in chart. Skin intact, no integrity photos to document. All discharge concerns addressed. Home medication returned. VS taken and stable, no acute distress. Rx faxed to pharmacy. ID band removed. Pt safely escorted out on gurney with microbiological laboratory technician to ambulance. Will remove Pt from system shortly.
== END 2018-06-12 14:30 | disposition home health service (06) | DRG 871 ==
PROVIDERS: ADMIT Physical Medicine & Rehabilitation Pain Medicine; ATTEND Physical Medicine & Rehabilitation Pain Medicine
DX: A41.9 Sepsis, unspecified organism (principal); G92 Toxic encephalopathy; I50.32 Chronic diastolic (congestive) heart failure; N39.0 Urinary tract infection, site not specified; I13.0 Hypertensive heart and chronic kidney disease with heart failure and stage 1 through stage 4 chronic kidney disease, or unspecified chronic kidney disease; J96.11 Chronic respiratory failure with hypoxia; Q43.3 Congenital malformations of intestinal fixation; E11.42 Type 2 diabetes mellitus with diabetic polyneuropathy; E11.51 Type 2 diabetes mellitus with diabetic peripheral angiopathy without gangrene; E78.5 Hyperlipidemia, unspecified; I25.10 Atherosclerotic heart disease of native coronary artery without angina pectoris; I25.2 Old myocardial infarction; I27.20 Pulmonary hypertension, unspecified; I35.0 Nonrheumatic aortic (valve) stenosis; I48.0 Paroxysmal atrial fibrillation; K21.9 Gastro-esophageal reflux disease without esophagitis; Z95.0 Presence of cardiac pacemaker; Z95.1 Presence of aortocoronary bypass graft; N40.0 Benign prostatic hyperplasia without lower urinary tract symptoms; B96.20 Unspecified Escherichia coli [E. coli] as the cause of diseases classified elsewhere; N18.9 Chronic kidney disease, unspecified; E11.22 Type 2 diabetes mellitus with diabetic chronic kidney disease; E11.65 Type 2 diabetes mellitus with hyperglycemia; G89.4 Chronic pain syndrome; K29.70 Gastritis, unspecified, without bleeding; K44.9 Diaphragmatic hernia without obstruction or gangrene; R19.5 Other fecal abnormalities; M19.90 Unspecified osteoarthritis, unspecified site; M81.0 Age-related osteoporosis without current pathological fracture; Z16.12 Extended spectrum beta lactamase (ESBL) resistance; Z86.73 Personal history of transient ischemic attack (TIA), and cerebral infarction without residual deficits; D50.9 Iron deficiency anemia, unspecified; R05 Cough; R53.1 Weakness; E66.9 Obesity, unspecified; Z68.27 Body mass index [BMI] 27.0-27.9, adult
CPT/HCPCS: 36415; 36600; 71045; 83735; 84100; 85025; 85730; 92523; 92526; 92610; 93307; 93880; 97110; 97112; 97116; 97165; 97530; 97535; A4663; J1815; J1940; J2185; J3475; J3490; J7040; J7050